=== PATIENT | female | born 1970 | race Caucasian/White ===

== ENCOUNTER 2020-09-13 07:26 | Outpatient (REF) | payer OTHER, SELFPAY ==
[2020-09-13 07:37] LABS: COVID-19 Test Positive (Negative)
== END 2020-09-13 07:27 | disposition home or self-care (01) ==
LOC: HO.EMPCOV 07:26
PROVIDERS: Visit Provider Internal Medicine
DX: Z20.822 Contact with and (suspected) exposure to COVID-19 (principal)
CPT/HCPCS: 36415; 87635; C9803

== ENCOUNTER 2020-11-30 07:28 | Outpatient (REF) | payer OTHER, SELFPAY ==
[2020-11-30 11:12] LABS: MANUAL DIFF FLAG NO
[2020-11-30 11:39] LABS: Basophils Absolute Auto 0.1 X10*3/uL (0.0-0.2); Eosinophils Absolute Auto 0.2 X10*3/uL (0.0-0.4); Eosinophils Percent Auto 4.3 % (0-4); Hematocrit 36.8 % (37-47); Imm Gran Abs Auto 0.03 X10*3/uL (0.00-0.03); Imm Gran Pct Auto 0.6 % (0.0-0.4); Lymphocytes Absolute Auto 1.1 X10*3/uL (1.2-4.9); Lymphocytes Percent Auto 21.9 % (20-40); Mean Corpuscular HGB Conc 32.6 g/dl (31.0-35.0); Mean Corpuscular Hemoglobin 31.9 pg (27.0-33.0); Mean Corpuscular Volume 97.9 fL (80-98); Mean Platelet Volume 10.2 fL (9.4-12.3); Monocytes Absolute Auto 0.4 X10*3/uL (0.1-1.2); Monocytes Percent Auto 7.5 % (2-11); Neutrophils Absolute Auto 3.1 X10*3/uL (2.0-8.3); Neutrophils Percent Auto 64.7 % (45-73); Platelet Count 175 X10*3/uL (160-400); Red Blood Count 3.76 X10*6/uL (4.20-5.50); Red Cell Distribution Width 13.3 % (11.0-16.0); White Blood Count 4.8 X10*3/uL (4.8-10.8)
[2020-11-30 11:53] LABS: Estimated Average Glucose 303 mg/dL; Hemoglobin A1c % 12.2 %
[2020-11-30 11:55] LABS: Calcium 8.6 mg/dL (8.4-10.2); Magnesium 1.9 mg/dL (1.6-2.6); Phosphorus 3.9 mg/dL (2.7-4.5); Uric Acid 9.6 mg/dL (2.4-5.7)
[2020-11-30 11:56] LABS: Creatinine Urine 89.71 mg/dL; Microalbum/Creatinine Ratio Ur 50.1 ug/mg cr
[2020-11-30 12:06] LABS: Anion Gap 15 (12-20); Blood Urea Nitrogen 16 mg/dL (9-16); Calcium 8.5 mg/dL (8.4-10.2); Carbon Dioxide 24 mmol/L (22-29); Chloride 101 mmol/L (96-108); Estimated Glomerular Filt Rate 59; Glucose Random 191 mg/dL (60-115); Potassium 5.3 mmol/L (3.3-5.1); Sodium 135 mmol/L (135-145)
[2020-12-01 07:02] LABS: LDL Cholesterol Direct 191 mg/dL (<100)
== END 2020-11-30 07:29 | disposition home or self-care (01) ==
LOC: HO.HMGCLDS 07:28
PROVIDERS: PCP Internal Medicine; Visit Provider Internal Medicine Hypertension Specialist
DX: R21 Rash and other nonspecific skin eruption (principal); K21.9 Gastro-esophageal reflux disease without esophagitis; Z79.4 Long term (current) use of insulin; E13.9 Other specified diabetes mellitus without complications; F41.1 Generalized anxiety disorder; I10 Essential (primary) hypertension
CPT/HCPCS: 36415; 80048; 82040; 82043; 82310; 83036; 83721; 83735; 84100; 84550; 85025

== ENCOUNTER 2020-12-04 07:16 | Outpatient (REF) | payer OTHER, SELFPAY ==
[2020-12-04 12:09] LABS: Anion Gap 17 (12-20); Carbon Dioxide 24 mmol/L (22-29); Chloride 100 mmol/L (96-108); Potassium 5.2 mmol/L (3.3-5.1); Sodium 136 mmol/L (135-145)
== END 2020-12-04 07:17 | disposition home or self-care (01) ==
LOC: HO.HMGCLDS 07:16
PROVIDERS: Visit Provider Internal Medicine
DX: E87.5 Hyperkalemia (principal)
CPT/HCPCS: 36415; 80051

== ENCOUNTER 2020-12-13 12:18 | Outpatient (REF) | payer OTHER, SELFPAY ==
--- NOTE | ~2020-12-13 | XR_ITS ---
EXAMINATION: XR CHEST CLINICAL INFORMATION: Cough. COMPARISON: Chest x-ray 08/03/2017 TECHNIQUE: 2 views of the chest were obtained. 1600 hours FINDINGS: Lungs are clear. No pulmonary vascular congestion. There is no pleural effusion. The heart size is normal. The cardiac and mediastinal contours are normal. There are multilevel degenerative changes of dorsal spine. XR/XR chest 2V IMPRESSION: Unremarkable examination.
== END 2020-12-13 12:19 | disposition home or self-care (01) ==
LOC: HO.HMGCX 12:18
PROVIDERS: PCP Internal Medicine; Visit Provider Internal Medicine
DX: R05 Cough (principal)
CPT/HCPCS: 71046

== ENCOUNTER 2021-05-25 07:50 | Outpatient (REF) | payer OTHER, SELFPAY ==
[2021-05-25 11:29] LABS: MANUAL DIFF FLAG NO
[2021-05-25 11:37] LABS: Basophils Absolute Auto 0.1 X10*3/uL (0.0-0.2); Basophils Percent Auto 0.9 % (0-2); Eosinophils Absolute Auto 0.3 X10*3/uL (0.0-0.4); Eosinophils Percent Auto 4.7 % (0-4); Hematocrit 38.1 % (37-47); Hemoglobin 12.4 g/dl (12.0-16.0); Imm Gran Abs Auto 0.04 X10*3/uL (0.00-0.03); Imm Gran Pct Auto 0.6 % (0.0-0.4); Lymphocytes Absolute Auto 1.4 X10*3/uL (1.2-4.9); Lymphocytes Percent Auto 20.9 % (20-40); Mean Corpuscular HGB Conc 32.5 g/dl (31.0-35.0); Mean Corpuscular Hemoglobin 31.1 pg (27.0-33.0); Mean Corpuscular Volume 95.5 fL (80-98); Mean Platelet Volume 10.4 fL (9.4-12.3); Monocytes Absolute Auto 0.6 X10*3/uL (0.1-1.2); Monocytes Percent Auto 8.1 % (2-11); Neutrophils Absolute Auto 4.4 X10*3/uL (2.0-8.3); Neutrophils Percent Auto 64.8 % (45-73); Platelet Count 208 X10*3/uL (160-400); Red Blood Count 3.99 X10*6/uL (4.20-5.50); Red Cell Distribution Width 11.9 % (11.0-16.0); White Blood Count 6.8 X10*3/uL (4.8-10.8)
[2021-05-25 11:44] LABS: Estimated Average Glucose 303 mg/dL; Hemoglobin A1c % 12.2 %
[2021-05-25 12:08] LABS: Alanine Aminotransferase 32 U/L (0-31); Albumin Level 4.1 g/dL (3.5-5.0); Alkaline Phosphatase 173 U/L (39-117); Anion Gap 17 (12-20); Aspartate Amino Transferase 60 U/L (5-31); Bilirubin Total 0.4 mg/dL (0.0-1.0); Blood Urea Nitrogen 23 mg/dL (9-16); Calcium 8.9 mg/dL (8.4-10.2); Carbon Dioxide 24 mmol/L (22-29); Chloride 97 mmol/L (96-108); Cholesterol 176 mg/dL; Estimated Glomerular Filt Rate 33; Glucose Fasting 297 mg/dL (60-99); HDL Cholesterol 47 mg/dL; LDL Cholesterol Calculated 77 mg/dl; Potassium 5.3 mmol/L (3.3-5.1); Sodium 133 mmol/L (135-145); Total Protein 7.2 g/dL (6.5-8.0); Triglycerides 264 mg/dL
[2021-05-27 03:02] LABS: LDL Cholesterol Direct 110 mg/dL (<100)
== END 2021-05-25 07:51 | disposition home or self-care (01) ==
LOC: HO.HMGCLDS 07:50
PROVIDERS: PCP Internal Medicine; Visit Provider Internal Medicine
DX: E11.21 Type 2 diabetes mellitus with diabetic nephropathy (principal); E78.9 Disorder of lipoprotein metabolism, unspecified; E79.0 Hyperuricemia without signs of inflammatory arthritis and tophaceous disease; E87.5 Hyperkalemia; F41.1 Generalized anxiety disorder; G44.89 Other headache syndrome; I10 Essential (primary) hypertension; K21.9 Gastro-esophageal reflux disease without esophagitis; F33.9 Major depressive disorder, recurrent, unspecified; Z79.4 Long term (current) use of insulin
CPT/HCPCS: 36415; 80053; 80061; 83036; 83721; 85025

== ENCOUNTER 2021-06-09 10:09 | Outpatient (REF) | payer OTHER, SELFPAY ==
[2021-06-09 11:13] LABS: Appearance Urine CLEAR; Color Urine YELLOW; Glucose Urine UA NEG (NEG); Leukocyte Esterase Urine NEG (NEG); Nitrite Urine NEG (NEG); Specific Gravity - Urine 1.025 (1.005-1.025); Urine Blood TRACE (NEG); Urine Ketones NEG (NEG); Urine Protein 1+ MG/DL (NEG-TRACE)
[2021-06-09 11:24] LABS: Estimated Average Glucose 298 mg/dL
[2021-06-09 11:30] LABS: Bacteria Urine 1+ /LPF; Mucus Urine 1+ /LPF; RBC Urine 0-2 /HPF (0); Squamous Epithelial Cell Urine 2+ /LPF; WBC Urine 0-2 /HPF (0-4)
[2021-06-09 11:31] LABS: Creatinine Urine 136.95 mg/dL; Protein/Creatinine Ratio, Ur 0.34 (<0.2); Total Protein Urine Random 46 mg/dL (<12)
[2021-06-09 11:35] LABS: Alanine Aminotransferase 33 U/L (0-31); Albumin Level 4.1 g/dL (3.5-5.0); Alkaline Phosphatase 163 U/L (39-117); Alkaline Phosphatase 167 U/L (39-117); Anion Gap 17 (12-20); Anion Gap 20 (12-20); Aspartate Amino Transferase 74 U/L (5-31); Aspartate Amino Transferase 79 U/L (5-31); Bilirubin Total 0.5 mg/dL (0.0-1.0); Blood Urea Nitrogen 16 mg/dL (9-16); Calcium 8.9 mg/dL (8.4-10.2); Carbon Dioxide 20 mmol/L (22-29); Carbon Dioxide 23 mmol/L (22-29); Chloride 100 mmol/L (96-108); Cholesterol 196 mg/dL; Estimated Glomerular Filt Rate 54; Estimated Glomerular Filt Rate 57; Glucose Fasting 213 mg/dL (60-99); Glucose Random 210 mg/dL (60-115); HDL Cholesterol 49 mg/dL; LDL Cholesterol Calculated 101 mg/dl; Potassium 5.1 mmol/L (3.3-5.1); Potassium 5.6 mmol/L (3.3-5.1); Sodium 134 mmol/L (135-145); Sodium 135 mmol/L (135-145); Total Protein 7.1 g/dL (6.5-8.0); Total Protein 7.4 g/dL (6.5-8.0); Triglycerides 232 mg/dL
== END 2021-06-09 10:10 | disposition home or self-care (01) ==
LOC: HO.HMGCLDS 10:09
PROVIDERS: PCP Internal Medicine; Visit Provider Internal Medicine Hypertension Specialist
DX: N17.9 Acute kidney failure, unspecified (principal); I10 Essential (primary) hypertension; E11.21 Type 2 diabetes mellitus with diabetic nephropathy; F33.9 Major depressive disorder, recurrent, unspecified; E78.9 Disorder of lipoprotein metabolism, unspecified; F41.1 Generalized anxiety disorder; E87.5 Hyperkalemia; K21.9 Gastro-esophageal reflux disease without esophagitis; E79.0 Hyperuricemia without signs of inflammatory arthritis and tophaceous disease; G44.89 Other headache syndrome; Z79.4 Long term (current) use of insulin
CPT/HCPCS: 36415; 80053; 80061; 81001; 83036; 84156

== ENCOUNTER 2021-06-14 15:09 | Outpatient (REF) | payer OTHER, SELFPAY ==
--- NOTE | ~2021-06-14 | US_ITS ---
EXAMINATION: US RETROPERITONEAL LIMITED (RENAL ONLY) CLINICAL INFORMATION: Acute kidney failure. COMPARISON: Ultrasound abdomen complete 09/01/2017. CT abdomen and pelvis 08/03/2017. TECHNIQUE: Real-time imaging of the kidneys. FINDINGS: RIGHT KIDNEY: Partially obscured due to overlying bowel gas and patient body habitus. 10.8 x 5.5 x 5.8 cm (SAG x AP x TRV). The kidney is normal in size and contour. Mildly increased cortical echogenicity. Mild renal cortical thinning. No calculi or focal parenchymal lesions. No hydronephrosis. LEFT KIDNEY: 11.5 x 6.3 x 5.2 cm (SAG x AP x TRV). The kidney is normal in size and contour. Mildly increased cortical echogenicity. Mild renal cortical thinning. No calculi or focal parenchymal lesions. No hydronephrosis. US/US renal BI IMPRESSION: Bilateral renal cortical thinning with increased peripheral echogenicity, which can be seen in the setting of medical renal disease. Findings appear similar when compared to the ultrasound dated 09/01/2017. No focal parenchymal lesion, hydronephrosis, or nephrolithiasis.
== END 2021-06-14 15:10 | disposition home or self-care (01) ==
LOC: HO.HMGCX 15:09
PROVIDERS: PCP Internal Medicine; Visit Provider Internal Medicine Hypertension Specialist
DX: N17.9 Acute kidney failure, unspecified (principal)
CPT/HCPCS: 76775

== ENCOUNTER 2021-07-15 23:03 | Emergency (ER) | payer OTHER, SELFPAY ==
[2021-07-15 23:08] VITALS: BP 192/94; PULSE 64; RESP 24; TEMP 37.1; O2SAT 95; BMI 51.2
--- NOTE | 2021-07-15 23:41 | ED_ITS ---
HPI - Extremity Problem General Chief complaint: Extremity Problem Stated complaint: ? DVT in leg Time Seen by Provider: 07/15/21 23:15 Source: patient Mode of arrival: ambulatory Limitations: no limitations History of Present Illness HPI Narrative: 51-year-old female with a history of morbid obesity, diabetes on insulin with neuropathy, depression, anxiety, hypertension, constipation, asthma, GERD who presents to the ER with acute onset of right leg pain that started this evening. She reports no injury or trauma. She reports the pain is ?shooting and goes from the outside of her right foot and ankle up her leg to her right buttock and thigh. She cannot get comfortable. She states she was sitting watching TV when the pain started and it is continuous shooting pain that will go away. She took some Tylenol with no relief. She has no numbness, tingling, weakness. She has no history of low back pain or sciatica in the past. MD Complaint: extremity pain Onset (ago): hour(s) Pain Consistency: constant Location: right and lower extremity Severity scale (1-10): 8 Quality: sharp and other (Shooting) Radiation: proximal Relieving factors: nothing Exacerbating factors: nothing Associated symptoms: denies other symptoms Related Data Home Medications Medication Instructions Recorded Confirmed lancets 28 gauge (FreeStyle #100 ea 06/26/20 05/25/21 Lancets) Previous Rx's Medication Instructions Recorded nystatin 100,000 unit/gram topical 1 appl TOPICAL DAILY PRN 30 Days 09/08/20 powder #60 g valacyclovir 1 gram tablet 2,000 mg PO Q12H 1 Days #4 tab 09/25/20 (Valtrex) nitrofurantoin 100 mg PO Q12H 3 Days #6 cap 10/31/20 monohydrate/macrocrystals 100 mg capsule (Macrobid) pen needle, diabetic 32 gauge x #100 ea 10/31/20 (Easy Comfort Pen [place]) blood sugar diagnostic (FreeStyle See Rx Instructions .ROUTE 11/27/20 Lite Strips) .COMPLEX 30 Days #100 strip sodium polystyrene sulfonate 15 15 g (60 mL) PO DAILY 3 Days #180 12/05/20 gram/60 mL oral suspension ml insulin lispro 200 unit/mL (3 mL) 10 unit (0.05 mL) SUBCUT TID 30 01/26/21 subcutaneous pen (Humalog KwikPen Days #4.5 ml U-200 Insulin) citalopram 40 mg tablet 40 mg PO DAILY 90 Days #90 tab 03/21/21 propranolol 80 mg capsule,24 80 mg PO DAILY 90 Days #90 cap 04/18/21 hr,extended release (Inderal LA) albuterol sulfate 90 mcg/actuation 1 inh INHALATION QID PRN 30 Days 04/27/21 aerosol inhaler (ProAir HFA) #18 g uzcjcvbo-kuwrqbzrk-exccvhgzu 3.5 4 drp OTIC (EAR) LEFT Q8H 10 Days 05/15/21 mg-10,000 unit/mL-1 % ear #10 ml drops,susp simvastatin 40 mg tablet 40 mg PO BEDTIME 90 Days #90 tab 05/24/21 lorazepam 1 mg tablet 1 mg PO ONCE PRN 30 Days #30 tab 05/25/21 insulin glargine 100 unit/mL (3 100 unit SUBCUT DAILY 90 Days #90 06/05/21 mL) subcutaneous pen (Basaglar ml KwikPen U-100 Insulin) colchicine 0.6 mg tablet 0.6 mg PO .q 6 hrs #30 tab 06/17/21 omeprazole 20 mg capsule,delayed 20 mg PO DAILY 90 Days #90 cap 06/18/21 release fluticasone propionate 50 1 spray INTRANASAL BID 30 Days #16 06/20/21 mcg/actuation nasal g spray,suspension (Flonase Allergy Relief) lisinopril 40 mg tablet 40 mg PO DAILY #90 tab 06/29/21 cyclobenzaprine 10 mg tablet 10 mg PO TID PRN #10 tab 07/16/21 ibuprofen 600 mg tablet 600 mg PO Q8H PRN #14 tab 07/16/21 oxycodone 5 mg tablet 5 mg PO Q8H PRN #7 tab 07/16/21 Allergies Allergy/AdvReac Type Severity Reaction Status Date / Time raspberry [Raspberry] Allergy Mild HIVES Verified 07/15/21 23:29 Review of Systems Review of Systems: Constitutional: No Fever, No Chills s Cardiovascular: No Chest Pain, No SOB Gastrointestinal: No Nausea, No Vomiting, No Diarrhea, No abdominal Pain Genitourinary: No Dysuria, No Urinary Frequency, No Hematuria Musculoskeletal: + joint pain, + Myalgias Skin: No Skin Lesions, No rash Neuro: No Weakness, No Numbness Psych: No Anxiety/Panic, No Depression Heme/Lymph: No Bruising, No Lymphadenopathy PMFSH Past Medical History Medical History (Updated 07/16/21 @ 00:37 by ANGELA Palomo) HTN (hypertension) Insulin dependent diabetes mellitus Rash Surgical History History of back surgery Previous section Family History Family History Father No problems noted. Mother HTN (hypertension) Maternal Grandfather Cancer Sister No problems noted. Social History Social History Advance Directives: No Patient : No Physical Exam Vital Signs: Vital Signs: Last Vital Signs Temp 98.7 F 07/15/21 23:08 Pulse 64 07/16/21 00:21 Resp 17 07/16/21 00:21 BP 187/67 H 07/16/21 00:21 Pulse Ox 95 07/15/21 23:08 Body Mass Index 51.2 Appearance: Alert. Oriented X3. Appears slightly uncomfortable. HEENT: normal inspection CVS: Normal heart rate and rhythm. Pulses normal. Respiratory: No respiratory distress. Skin: Skin warm and dry. Normal skin color. Normal skin turgor. No rashes. Extremities: Normal inspection of bilateral lower extremities. Normal range of motion of bilateral lower extremities. Right lower extremity is nontender to palpation. No calf tenderness. No mass in the popliteal fossa. Warm and well perfused. Neuro: Oriented X 3. No motor deficit. No sensory deficit. Course Course Course Narrative: 51-year-old female presenting with acute onset of non- traumatic shooting right leg pain that goes from ankle to buttock. No SOB or chest pain. Doubt DVT at this time. Most likely sounds like nerve pain, possible sciatica. Will medicate and reassess. Reevaluation(s) Reevaluation #1: Pain and blood pressure improved with medication. Her clinical presentation is most consistent with nerve pain that is shooting. Will treat with short course of p.r.n. narcotic and muscle relaxers. Will also prescribe short course of anti-inflammatory medication. She will follow-up with her doctor this week. Will provide work note for tomorrow. Comfortable with d/c home. Discharge Plan Discharge Clinical Impression: Acute leg pain Qualifiers: Laterality: right Qualified Code(s): M79.604 - Pain in right leg Patient Disposition: Home, Self-Care Instructions: Leg Pain (ED) Additional Instructions: Your pain is most likely nerve pain. Very low suspicion for DVT at this time. Take medications as prescribed to help with pain and discomfort. Follow up with your Primary Care Doctor this week. If your pain worsens, if you develop new numbness, tingling, weakness, loss of function or any other concerning symptom 911 or come back to the ER right away for evaluation. Prescriptions: New cyclobenzaprine 10 mg tablet 10 mg PO TID PRN (Reason: muscle spasm) Qty: 10 RF: 0 ibuprofen 600 mg tablet 600 mg PO Q8H PRN (Reason: pain) Qty: 14 RF: 0 oxycodone 5 mg tablet 5 mg PO Q8H PRN (Reason: pain) Qty: 7 RF: 0 No Action (DME) lancets [FreeStyle Lancets] 28 gauge misc See Rx Instructions .ROUTE .MEDSUPPLY Qty: 100 RF: 0 valacyclovir [Valtrex] 1 gram tablet 2,000 mg PO Q12H 1 Days Qty: 4 RF: 2 (DME) pen needle, diabetic [Easy Comfort Pen [place]] 32 gauge x 5/32 needle See Rx Instructions .ROUTE .MEDSUPPLY Qty: 100 RF: 3 nitrofurantoin monohyd/m-cryst [Macrobid] 100 mg capsule 100 mg PO Q12H 3 Days Qty: 6 RF: 0 FreeStyle Lite Strips Strip See Rx Instructions .ROUTE .COMPLEX 30 Days Qty: 100 RF: 1 sodium polystyrene sulfonate 15 gram/60 mL suspension 15 g PO DAILY 3 Days Qty: 180 RF: 0 Humalog KwikPen Insulin 200 unit/mL (3 mL) insulin pen 10 unit subcut TID 30 Days Qty: 4.5 RF: 3 citalopram 40 mg tablet 40 mg PO DAILY 90 Days Qty: 90 RF: 0 propranolol [Inderal LA] 80 mg capsule,extended release 24 hr 80 mg PO DAILY 90 Days Qty: 90 RF: 0 albuterol sulfate [ProAir HFA] 90 mcg/actuation HFA aerosol inhaler 1 inh inhalation QID PRN (Reason: shortness of breath or wheezing) 30 Days Qty: 18 RF: 5 simvastatin 40 mg tablet 40 mg PO BEDTIME 90 Days Qty: 90 RF: 0 Basaglar KwikPen U-100 Insulin 100 unit/mL (3 mL) insulin pen 100 unit subcut DAILY 90 Days Qty: 90 RF: 1 colchicine 0.6 mg tablet 0.6 mg PO .q 6 hrs Qty: 30 RF: 0 omeprazole 20 mg capsule,delayed release(DR/EC) 20 mg PO DAILY 90 Days Qty: 90 RF: 0 fluticasone propionate [Flonase Allergy Relief] 50 mcg/actuation spray,suspension 1 spray intranasal BID 30 Days Qty: 16 RF: 5 lisinopril 40 mg tablet 40 mg PO DAILY Qty: 90 RF: 0 lorazepam 1 mg tablet 1 mg PO ONCE PRN (Reason: anxiety) 30 Days Qty: 30 RF: 2 nystatin 100,000 unit/gram powder 1 appl topical DAILY PRN (Reason: rash) 30 Days Qty: 60 RF: 5 fnlhdowe-vfjntxxgd-RL 3.5-10,000-1 mg/mL-unit/mL-% drops,suspension 4 drp otic (ear) left Q8H 10 Days Qty: 10 RF: 0 Referrals: Cara Byers MD [Primary Care Provider] - 2 days Stand Alone Forms: Work/School Release
[2021-07-15] MEDS: Ibuprofen 600 MG TABLET PO (23:48)
[2021-07-15] MEDS: oxyCODONE HCl Immed Release 5 MG TABLET PO (23:49)
[2021-07-16 00:21] VITALS: BP 187/67; PULSE 64; RESP 17
[2021-07-16] MEDS: Cyclobenzaprine HCl 10 MG TABLET PO (00:28)
== END 2021-07-16 00:53 | disposition home or self-care (01) ==
PROVIDERS: Emergency Provider Emergency Medicine; PCP Internal Medicine
DX: M79.604 Pain in right leg (principal); E11.40 Type 2 diabetes mellitus with diabetic neuropathy, unspecified; I10 Essential (primary) hypertension; J45.909 Unspecified asthma, uncomplicated; E66.01 Morbid (severe) obesity due to excess calories; Z68.43 Body mass index [BMI] 50.0-59.9, adult; Z79.4 Long term (current) use of insulin
CPT/HCPCS: 99283; 99284

== ENCOUNTER 2021-07-18 09:12 | Emergency (ER) | payer OTHER, SELFPAY ==
--- NOTE | ~2021-07-18 | US_ITS ---
EXAMINATION: US VENOUS ULTRASOUND WITH DOPPLER LOWER EXTREMITY, RIGHT CLINICAL INFORMATION: Right lower extremity pain. Assess for occult DVT. COMPARISON: None TECHNIQUE: Ultrasound of the deep veins is performed from the hip to the calf with compression sonography and color and pulse Doppler assessment. Spectral analysis with color-flow imaging is performed. FINDINGS: There is normal venous compression and respiratory variation and augmented flow. The visualized common femoral vein, superficial femoral vein, profunda femoral vein, popliteal vein, and the trifurcation region shows no evidence of deep venous thrombosis. No popliteal fossa cyst demonstrated. US/US venous duplex LE RT IMPRESSION: No DVT demonstrated in the right lower extremity.
[2021-07-18 09:14] VITALS: BP 206/74; PULSE 69; RESP 20; TEMP 37.2; O2SAT 95; BMI 52.1
--- NOTE | 2021-07-18 09:26 | ED.EXTPRO ---
HPI - Extremity Problem General Chief complaint: Extremity Problem Stated complaint: rt leg pain & swelling ?dvt Time Seen by Provider: 07/18/21 09:26 Source: patient Mode of arrival: ambulatory Limitations: no limitations History of Present Illness HPI Narrative: Patient having pain from right lumbar area down to her calf. Patient is concerned that she is having a dvt. Patient denies swelling MD Complaint: extremity pain Onset (ago): minute(s) Pain Consistency: constant Location: right Associated symptoms: denies other symptoms Related Data Home Medications Medication Instructions Recorded Confirmed lancets 28 gauge (FreeStyle #100 ea 06/26/20 05/25/21 Lancets) insulin glargine 100 unit/mL (3 25 unit SUBCUT DAILY 07/18/21 mL) subcutaneous pen (Basaglar KwikPen U-100 Insulin) insulin glargine 100 unit/mL (3 75 unit SUBCUT BEDTIME 07/18/21 mL) subcutaneous pen (Basaglar KwikPen U-100 Insulin) insulin lispro 200 unit/mL (3 mL) unit SUBCUT 07/18/21 subcutaneous pen (Humalog KwikPen U-200 Insulin) Previous Rx's Medication Instructions Recorded nystatin 100,000 unit/gram topical 1 appl TOPICAL DAILY PRN 30 Days 09/08/20 powder #60 g valacyclovir 1 gram tablet 2,000 mg PO Q12H 1 Days #4 tab 09/25/20 (Valtrex) nitrofurantoin 100 mg PO Q12H 3 Days #6 cap 10/31/20 monohydrate/macrocrystals 100 mg capsule (Macrobid) pen needle, diabetic 32 gauge x #100 ea 10/31/20/32 (Easy Comfort Pen [place]) sodium polystyrene sulfonate 15 15 g (60 mL) PO DAILY 3 Days #180 12/05/20 gram/60 mL oral suspension ml citalopram 40 mg tablet 40 mg PO DAILY 90 Days #90 tab 03/21/21 propranolol 80 mg capsule,24 80 mg PO DAILY 90 Days #90 cap 04/18/21 hr,extended release (Inderal LA) albuterol sulfate 90 mcg/actuation 1 inh INHALATION QID PRN 30 Days 04/27/21 aerosol inhaler (ProAir HFA) #18 g fduajhyu-tgtgwgntc-qmjtnioiw 3.5 4 drp OTIC (EAR) LEFT Q8H 10 Days 05/15/21 mg-10,000 unit/mL-1 % ear #10 ml drops,susp simvastatin 40 mg tablet 40 mg PO BEDTIME 90 Days #90 tab 05/24/21 lorazepam 1 mg tablet 1 mg PO ONCE PRN 30 Days #30 tab 05/25/21 colchicine 0.6 mg tablet 0.6 mg PO .q 6 hrs #30 tab 06/17/21 omeprazole 20 mg capsule,delayed 20 mg PO DAILY 90 Days #90 cap 06/18/21 release fluticasone propionate 50 1 spray INTRANASAL BID 30 Days #16 06/20/21 mcg/actuation nasal g spray,suspension (Flonase Allergy Relief) lisinopril 40 mg tablet 40 mg PO DAILY #90 tab 06/29/21 cyclobenzaprine 10 mg tablet 10 mg PO TID PRN #10 tab 07/16/21 ibuprofen 600 mg tablet 600 mg PO Q8H PRN #14 tab 07/16/21 oxycodone 5 mg tablet 5 mg PO Q8H PRN #7 tab 07/16/21 cyclobenzaprine 10 mg tablet 10 mg PO TID #10 tab 07/18/21 naproxen 500 mg tablet (Naprosyn) 500 mg PO BID #20 tab 07/18/21 Allergies Allergy/AdvReac Type Severity Reaction Status Date / Time raspberry [Raspberry] Allergy Mild HIVES Verified 07/18/21 08:30 Review of Systems Constitutional: Constitutional: Reports no additional constitutional complaints Eyes: Eyes: Reports no additional eye complaints ENT: Denies dizziness Cardiovascular: Cardiovascular: Reports no additional cardiovascular complaints Respiratory: Respiratory: Reports as per HPI Gastrointestinal: Gastrointestinal: Reports no additional gastrointestinal complaints Genitourinary: Genitourinary: Reports no additional female genitourinary complaints Musculoskeletal: Musculoskeletal: Reports no additional musculoskeletal complaints Integumentary/Breasts: Skin/Breast: Denies rash Neurologic: Reports system reviewed and no additional complaints, except as documented, Denies dizziness and Denies Sensory deficit (Neuro) Psychiatric: Psychiatric: Denies anxiety PMFSH Past Medical History Medical History HTN (hypertension) Insulin dependent diabetes mellitus Rash Surgical History History of back surgery Previous section Family History Family History Father No problems noted. Mother HTN (hypertension) Maternal Grandfather Cancer Sister No problems noted. Social History Social History Alcohol intake: unknown Patient Tobacco Use Status: Never used Tobacco Use of substances other than those prescribed or required for medical reasons: No Advance Directives: No Advance Directives Information Provided: Yes Physical Exam Vital Signs: Vital Signs: Last Vital Signs Temp 98.9 F 07/18/21 09:14 Pulse 65 07/18/21 10:36 Resp 18 07/18/21 10:36 BP 178/66 H 07/18/21 10:36 Pulse Ox 94 07/18/21 10:36 Body Mass Index 52.1 Const: Other: morbidly obese female appearing very uncomfortable Orientation/consciousness: oriented to person and patient oriented x3 Limitations: no limitations HENMT: Head: Yes normal to inspection Ears: external ears normal General nose exam: Normal external nose present Mouth: Normal oral and palatal mucosa present and oropharynx normal Throat: Yes posterior oropharynx normal Eyes: General: appearance normal, both eyes and all related structures Neck: Other: supple Neck: Yes normal visual inspection Chest: Chest palpation & inspection: normal inspection of the chest Resp: Auscultation: clear to auscultation bilaterally Cardio: Jugular venous distension: no JVD Rate: regular rate Rhythm: regular rhythm Heart sounds: S1 normal heart sound present and S2 normal heart sound present GI: Inspection: Yes normal to inspection Palpation (GI): Soft to palpation, nontender and No hepatosplenomegaly present Auscultation: normal bowel sounds Back/Spine/Pelvis: Other: right sciatic tenderness Skin: General skin exam: no rashes or lesions noted Neuro: General: oriented to person and patient oriented x3 Cranial nerves: Yes CN's II-XII intact bilaterally Motor exam (neuro): 5/5 motor strength present throughout Sensory Exam: No Sensory deficit (Neuro) Extrem: Other: question of fullness behind knee consistent with Barrera's cyst. Will get ultrasound of leg Psych: Appearance: grossly normal Course Reevaluation(s) Reevaluation #1: Patient with sciatic pain, no dvt no bakers cyst will dc on flexeril and NSAIDS Time: 10:40 MDM - Extremity (Nontraumatic) Imaging Data duplex left leg: Radiologist's impression: FINDINGS: There is normal venous compression and respiratory variation and augmented flow. The visualized common femoral vein, superficial femoral vein, profunda femoral vein, popliteal vein, and the trifurcation region shows no evidence of deep venous thrombosis. ? No popliteal fossa cyst demonstrated. US/US venous duplex LE RT IMPRESSION: No DVT demonstrated in the right lower extremity. Discharge Plan Discharge Clinical Impression: Sciatica of right side Patient Disposition: Home, Self-Care Instructions: Sciatica (ED), Acute Low Back Pain (ED) Prescriptions: New cyclobenzaprine 10 mg tablet 10 mg PO TID Qty: 10 RF: 0 naproxen [Naprosyn] 500 mg tablet 500 mg PO BID Qty: 20 RF: 0 No Action (DME) lancets [FreeStyle Lancets] 28 gauge misc See Rx Instructions .ROUTE .MEDSUPPLY Qty: 100 RF: 0 valacyclovir [Valtrex] 1 gram tablet 2,000 mg PO Q12H 1 Days Qty: 4 RF: 2 (DME) pen needle, diabetic [Easy Comfort Pen [place]] 32 gauge x 5/32 needle See Rx Instructions .ROUTE .MEDSUPPLY Qty: 100 RF: 3 nitrofurantoin monohyd/m-cryst [Macrobid] 100 mg capsule 100 mg PO Q12H 3 Days Qty: 6 RF: 0 sodium polystyrene sulfonate 15 gram/60 mL suspension 15 g PO DAILY 3 Days Qty: 180 RF: 0 citalopram 40 mg tablet 40 mg PO DAILY 90 Days Qty: 90 RF: 0 propranolol [Inderal LA] 80 mg capsule,extended release 24 hr 80 mg PO DAILY 90 Days Qty: 90 RF: 0 albuterol sulfate [ProAir HFA] 90 mcg/actuation HFA aerosol inhaler 1 inh inhalation QID PRN (Reason: shortness of breath or wheezing) 30 Days Qty: 18 RF: 5 simvastatin 40 mg tablet 40 mg PO BEDTIME 90 Days Qty: 90 RF: 0 colchicine 0.6 mg tablet 0.6 mg PO .q 6 hrs Qty: 30 RF: 0 omeprazole 20 mg capsule,delayed release(DR/EC) 20 mg PO DAILY 90 Days Qty: 90 RF: 0 fluticasone propionate [Flonase Allergy Relief] 50 mcg/actuation spray,suspension 1 spray intranasal BID 30 Days Qty: 16 RF: 5 lisinopril 40 mg tablet 40 mg PO DAILY Qty: 90 RF: 0 Basaglar KwikPen U-100 Insulin 100 unit/mL (3 mL) insulin pen 75 unit subcut BEDTIME RF: 0 Basaglar KwikPen U-100 Insulin 100 unit/mL (3 mL) insulin pen 25 unit subcut DAILY RF: 0 Humalog KwikPen Insulin 200 unit/mL (3 mL) insulin pen subcut RF: 0 cyclobenzaprine 10 mg tablet 10 mg PO TID PRN (Reason: muscle spasm) Qty: 10 RF: 0 ibuprofen 600 mg tablet 600 mg PO Q8H PRN (Reason: pain) Qty: 14 RF: 0 oxycodone 5 mg tablet 5 mg PO Q8H PRN (Reason: pain) Qty: 7 RF: 0 lorazepam 1 mg tablet 1 mg PO ONCE PRN (Reason: anxiety) 30 Days Qty: 30 RF: 2 nystatin 100,000 unit/gram powder 1 appl topical DAILY PRN (Reason: rash) 30 Days Qty: 60 RF: 5 zazbksai-zbqmlozvt-UZ 3.5-10,000-1 mg/mL-unit/mL-% drops,suspension 4 drp otic (ear) left Q8H 10 Days Qty: 10 RF: 0 Referrals: Cara Byers MD [Primary Care Provider] - 1 week
[2021-07-18] MEDS: Ketorolac Tromethamine 60 MG/2 ML VIAL IM (09:36)
[2021-07-18] MEDS: Cyclobenzaprine HCl 10 MG TABLET PO (09:36)
[2021-07-18 10:36] VITALS: BP 178/66; PULSE 65; RESP 18; O2SAT 94
== END 2021-07-18 11:18 | disposition home or self-care (01) ==
PROVIDERS: Emergency Provider Emergency Medicine; PCP Internal Medicine
DX: M54.31 Sciatica, right side (principal); M79.604 Pain in right leg; I10 Essential (primary) hypertension; E11.9 Type 2 diabetes mellitus without complications; Z79.4 Long term (current) use of insulin
CPT/HCPCS: 93971; 96372; 99284; J1885

== ENCOUNTER 2021-07-24 16:38 | Outpatient (REF) | payer OTHER, SELFPAY ==
--- NOTE | ~2021-07-24 | XR_ITS ---
EXAMINATION: XR LUMBOSACRAL SPINE CLINICAL INFORMATION: Radiculopathy COMPARISON: None TECHNIQUE: Three views of the lumbosacral spine. FINDINGS: Bone alignment is normal. No fracture or dislocation is seen. There is multilevel degenerative spondylosis, degenerative disc disease and facet arthritis. Paraspinal soft tissues are unremarkable. XR/XR lumbar spine 2-3V IMPRESSION: Multilevel degenerative changes.
== END 2021-07-24 16:39 | disposition home or self-care (01) ==
LOC: HO.HMGCX 16:38
PROVIDERS: PCP Internal Medicine; Visit Provider Internal Medicine
DX: M54.16 Radiculopathy, lumbar region (principal)
CPT/HCPCS: 72100

== ENCOUNTER 2021-08-03 18:52 | Outpatient (REF) | payer OTHER, SELFPAY | END 2021-08-03 18:53 | disposition home or self-care (01) | LOC: HO.MRI 18:52 | PROVIDERS: PCP Internal Medicine; Visit Provider Internal Medicine | DX: Z13.89 Encounter for screening for other disorder (principal) ==

== ENCOUNTER → 2021-09-21 09:19 | Outpatient (BNVA) | payer OTHER, SELFPAY | PROVIDERS: PCP Internal Medicine; Visit Provider Internal Medicine ==

== ENCOUNTER → 2021-10-12 09:51 | Outpatient (BNVA) | payer OTHER, SELFPAY | PROVIDERS: PCP Internal Medicine; Visit Provider Internal Medicine ==

== ENCOUNTER 2022-03-11 07:40 | Outpatient (REF) | payer OTHER, SELFPAY ==
[2022-03-11 11:32] LABS: Appearance Urine CLEAR; Color Urine YELLOW; Glucose Urine UA NEG (NEG); Leukocyte Esterase Urine NEG (NEG); Nitrite Urine NEG (NEG); Urine Blood NEG (NEG); Urine Ketones NEG (NEG); Urine Protein 1+ MG/DL (NEG-TRACE)
[2022-03-11 11:44] LABS: Squamous Epithelial Cell Urine 1+ /LPF
[2022-03-11 11:45] LABS: Bacteria Urine 1+ /LPF; Hyaline Casts Urine 0-2 /LPF; WBC Urine 0-2 /HPF (0-4)
[2022-03-11 11:46] LABS: RBC Urine 0 /HPF (0)
[2022-03-11 12:09] LABS: Alanine Aminotransferase 27 U/L (0-31); Albumin Level 4.3 g/dL (3.5-5.0); Alkaline Phosphatase 138 U/L (39-117); Anion Gap 17 (12-20); Aspartate Amino Transferase 45 U/L (5-31); Bilirubin Total 0.4 mg/dL (0.0-1.0); Blood Urea Nitrogen 12 mg/dL (9-16); Calcium 9.6 mg/dL (8.4-10.2); Carbon Dioxide 23 mmol/L (22-29); Chloride 96 mmol/L (96-108); Estimated Glomerular Filt Rate 55; Glucose Random 209 mg/dL (60-115); Potassium 5.7 mmol/L (3.3-5.1); Sodium 130 mmol/L (135-145); Total Protein 7.5 g/dL (6.5-8.0)
[2022-03-11 12:23] LABS: Creatinine Urine 80.41 mg/dL; Protein/Creatinine Ratio, Ur 0.44 (<0.2); Total Protein Urine Random 35 mg/dL (<12)
== END 2022-03-11 07:41 | disposition home or self-care (01) ==
LOC: HO.HMGCLDS 07:40
PROVIDERS: PCP Internal Medicine; Visit Provider Internal Medicine Hypertension Specialist
DX: N17.9 Acute kidney failure, unspecified (principal); I10 Essential (primary) hypertension
CPT/HCPCS: 36415; 80053; 81001; 84156

== ENCOUNTER 2022-04-03 07:40 | Outpatient (REF) | payer OTHER, SELFPAY ==
[2022-04-03 13:53] LABS: Uric Acid 9.2 mg/dL (2.4-5.7)
== END 2022-04-03 07:41 | disposition home or self-care (01) ==
LOC: HO.HMGCLDS 07:40
PROVIDERS: PCP Internal Medicine; Visit Provider Internal Medicine
DX: M79.673 Pain in unspecified foot (principal)
CPT/HCPCS: 36415; 84550

== ENCOUNTER 2022-04-28 05:22 | Emergency (ER) | payer OTHER, SELFPAY ==
[2022-04-28 05:36] VITALS: BP 175/115; PULSE 83; RESP 18; TEMP 37.3; O2SAT 97; BMI 50.3
[2022-04-28 06:33] LABS: COVID-19 Test Negative (Negative)
--- NOTE | 2022-04-28 07:10 | ED.ALLEREA ---
HPI - Allergic Reaction General Chief complaint: Allergic Reaction Stated complaint: allergic reaction, headache Time Seen by Provider: 04/28/22 05:23 Source: patient Mode of arrival: ambulatory Limitations: no limitations History of Present Illness HPI narrative: 52-year-old female came in for evaluation of possible allergic reaction. Patient has been feeling sore throat and coughing, patient had negative COVID test because of her symptoms patient took Mucinex then shortly after started to have rash and hives. No shortness of breath, no throat swelling. Feel mild headache but no neck stiffness, no photophobia, no fever. Patient been testing negative for COVID. Patient confirms that Mucinex is the only thing new she talked since the symptoms started. Related Data Home Medications Medication Instructions Recorded Confirmed lancets 28 gauge (FreeStyle #100 ea 06/26/20 03/12/22 Lancets) insulin lispro 200 unit/mL (3 mL) unit subcut 07/18/21 03/12/22 subcutaneous pen (Humalog KwikPen U-200 Insulin) semaglutide 1 mg/dose (4 mg/3 mL) 1 mg subcut QWEEK 03/12/22 03/12/22 subcutaneous pen injector (Ozempic) Previous Rx's Medication Instructions Recorded pen needle, diabetic 32 gauge x #100 ea 10/31/20 (Easy Comfort Pen Alpine) insulin glargine 100 unit/mL (3 75 unit (0.75 mL) subcut BEDTIME 12/27/21 mL) subcutaneous pen (Basaglar 30 days #22.5 mL KwikPen U-100 Insulin) lisinopril 40 mg tablet 40 mg PO DAILY #90 tabs 01/09/22 gabapentin 300 mg capsule 300 mg PO TID #90 caps 01/10/22 fluticasone propionate 50 1 spray intranasal BID 30 days #16 01/11/22 mcg/actuation nasal grams spray,suspension (Flonase Allergy Relief) propranolol 60 mg capsule,24 60 mg PO DAILY 90 days #90 caps 01/21/22 hr,extended release albuterol sulfate 90 mcg/actuation 1 inh inhalation QID PRN shortness 02/20/22 aerosol inhaler (ProAir HFA) of breath or wheezing 30 days #18 grams simvastatin 40 mg tablet 40 mg PO BEDTIME 90 days #90 tabs 02/20/22 omeprazole 20 mg capsule,delayed 20 mg PO DAILY 90 days #90 caps 03/01/22 release citalopram 40 mg tablet 40 mg PO DAILY 90 days #90 tabs 03/22/22 citalopram 40 mg tablet 40 mg PO DAILY 90 days #90 tabs 03/22/22 lorazepam 1 mg tablet 1 mg PO ONCE PRN anxiety 30 days 04/09/22 #30 tabs prednisone 20 mg tablet 20 mg PO BID #8 tabs 04/28/22 Allergies Allergy/AdvReac Type Severity Reaction Status Date / Time raspberry [Raspberry] Allergy Mild HIVES Verified 04/28/22 05:36 Review of Systems Review of Systems: All other systems are reviewed and are negative Constitutional: Reports as per HPI and Reports no additional constitutional complaints Eyes: Reports as per HPI and Reports no additional eye complaints Reports system reviewed and no additional complaints, except as documented Cardiovascular: Reports as per HPI and Reports no additional cardiovascular complaints Respiratory: Reports as per HPI and Reports no additional respiratory complaints Gastrointestinal: Reports as per HPI and Reports no additional gastrointestinal complaints Genitourinary: Reports no additional female genitourinary complaints Musculoskeletal: Reports no additional musculoskeletal complaints Skin/Breast: Reports system reviewed and no additional complaints, except as docu Psychiatric: Reports no additional psychiatric complaints Endocrine: Reports no additional endocrine complaints Hematologic/Lymphatic: Reports no additional hematologic/lymphatic complaints Allergic/Immunologic: Reports no additional allergic/immunologic complaints Reports system reviewed and no additional complaints, except as documented and Reports Abnormal speech present [facility] Past Medical History Medical History HTN (hypertension) Insulin dependent diabetes mellitus Rash Surgical History History of back surgery Previous section Family History Family History Father No problems noted. Mother HTN (hypertension) Maternal Grandfather Cancer Sister No problems noted. Social History Social History Housing: House Alcohol intake: unknown Patient Tobacco Use Status: Never used Tobacco e-Cigarette/Vaping Use: Never Used Use of substances other than those prescribed or required for medical reasons: No Advance Directives: No Advance Directives Information Provided: No service: No Current occupational status: employed Cognitive needs: No Hearing needs: No Vision needs: Yes Physical Exam ED Vital Signs: Vital Signs - 24 hr 04/28/22 05:36 04/28/22 07:33 Temperature 99.1 F Pulse Rate 83 74 Respiratory Rate 18 20 Blood Pressure 175/115 H 179/71 H Pulse Oximetry 97 96 Oxygen Delivery Method Room Air Room Air BMI result Body Mass Index 50.3 Vital signs have been reviewed as appeared to be correct. Blood pressure elevated. Heart rate normal. Respiration rate normal. Temperature normal. Oxygen saturation normal. Appearance: Alert. Oriented X3. No acute distress. Head: Normal external exam. Normocephalic. Atraumatic. No Levi signs noted. No raccoon eyes noted Eyes: PERRLA. EOMI. Conjunctiva and sclera normal. Eyelids normal. ENT: TM's Normal. Pharynx normal. Uvula midline. Moist mucous membranes. No trismus noted. No drooling noted. No muffled voice noted. Neck: Normal inspection. Neck supple. FROM. No adenopathy. Thyroid Normal. No meningeal signs. No neck mass noted. CVS: Normal heart rate and rhythm. Heart sound normal. No murmurs noted. Pulses normal throughout. Respiratory: No respiratory distress. Painless inspiration. Breath sounds normal. No wheezes/rales/rhonchi noted. Chest nontender. No accessory muscle usage noted or decreased air movement noted. Abdomen: Soft and nontender. Bowel sounds normal in all 4 quadrants. No distention noted. No organomegaly noted. No visible injury noted. Back: No CVA tenderness. Full range of motion noted. Skin: Skin warm and dry. Normal skin color. Normal skin turgor. No rashes/lesions/lacerations noted. Extremities: No lower extremity edema. Extremities exhibit normal range of motion. Extremities nontender. Neuro: Oriented X 3. Cranial nerve exam: II-XII are grossly intact No motor deficit. No sensory deficit. Reflexes normal. Course Course Course Narrative: 52-year-old female came in for allergic reaction likely to Mucinex, patient was given Benadryl and prednisone in the ED with partial improvement will start the patient on few days of low-dose prednisone. MDM - Allergic Reaction Lab Data Attestation: I reviewed the patient's lab results. Labs: Lab Results 04/28/22 04/28/22 04/28/22 Range/Units 06:12 07:51 07:52 COVID-19 (JULIET) Negative (Negative) COVID-19 Clin Com See Note Influenza Type A (PCR) NEGATIVE (Negative) Influenza Type B (PCR) NEGATIVE (Negative) RSV RNA Qual (PCR) NEGATIVE (Negative) SARS-CoV-2 RNA (RT-PCR) NEGATIVE (Negative) S. pyogenes GrpA RYAN Negative (Negative) Discharge Plan Discharge Clinical Impression: Allergic reaction, Acute viral syndrome Patient Disposition: Home, Self-Care Instructions: Viral Syndrome (ED), General Allergic Reaction (ED) Prescriptions: New prednisone 20 mg tablet 20 mg PO BID Qty: 8 0RF No Action (DME) lancets [FreeStyle Lancets] 28 gauge misc See Rx Instructions .ROUTE .MEDSUPPLY Qty: 100 Rx Instructions: As directed (DME) pen needle, diabetic [Easy Comfort Pen Alpine] 32 gauge x 5/32 needle See Rx Instructions .ROUTE .MEDSUPPLY Qty: 100 3RF Rx Instructions: B.i.d. Radha Loaiza U-100 Insulin 100 unit/mL (3 mL) insulin pen 75 unit subcut BEDTIME 30 Days Qty: 22.5 0RF lisinopril 40 mg tablet 40 mg PO DAILY Qty: 90 0RF gabapentin 300 mg capsule 300 mg PO TID Qty: 90 3RF fluticasone propionate [Flonase Allergy Relief] 50 mcg/actuation spray,suspension 1 spray intranasal BID 30 Days Qty: 16 5RF Rx Instructions: administer into each nostril propranolol 60 mg capsule,extended release 24 hr 60 mg PO DAILY 90 Days Qty: 90 0RF albuterol sulfate [ProAir HFA] 90 mcg/actuation HFA aerosol inhaler 1 inh inhalation QID PRN (Reason: shortness of breath or wheezing) 30 Days Qty: 18 5RF simvastatin 40 mg tablet 40 mg PO BEDTIME 90 Days Qty: 90 0RF omeprazole 20 mg capsule,delayed release(DR/EC) 20 mg PO DAILY 90 Days Qty: 90 0RF citalopram 40 mg tablet 40 mg PO DAILY 90 Days Qty: 90 0RF citalopram 40 mg tablet 40 mg PO DAILY 90 Days Qty: 90 0RF lorazepam 1 mg tablet 1 mg PO ONCE PRN (Reason: anxiety) 30 Days Qty: 30 0RF Humalog KwikPen Insulin 200 unit/mL (3 mL) insulin pen subcut Ozempic 1 mg/dose (4 mg/3 mL) pen injector 1 mg subcut QWEEK Referrals: Cara Byers MD [Primary Care Provider] -
[2022-04-28 07:33] VITALS: BP 179/71; PULSE 74; RESP 20; O2SAT 96
[2022-04-28] MEDS: diphenhydrAMINE HCL 25 MG TABLET PO (07:37)
[2022-04-28] MEDS: predniSONE 20 MG TABLET 60 MG PO (07:37)
[2022-04-28 08:27] LABS: Strep A Nucleic Acid Negative (Negative)
[2022-04-28 08:43] LABS: Influenza A PCR NEGATIVE (Negative); Influenza B PCR NEGATIVE (Negative); Resp Syncy Virus RNA Qual PCR NEGATIVE (Negative); SARS COV2 PCR INHOUSE NEGATIVE (Negative)
== END 2022-04-28 10:13 | disposition home or self-care (01) ==
PROVIDERS: Emergency Medicine; Emergency Provider Emergency Medicine; PCP Internal Medicine
DX: B34.9 Viral infection, unspecified (principal); L50.0 Allergic urticaria; J02.9 Acute pharyngitis, unspecified; Z20.822 Contact with and (suspected) exposure to COVID-19; Z79.899 Other long term (current) drug therapy
CPT/HCPCS: 0241U; 87635; 87651; 99284; Q0163

== ENCOUNTER 2022-05-16 14:28 | Outpatient (REF) | payer OTHER, SELFPAY ==
--- NOTE | ~2022-05-16 | XR_ITS ---
EXAMINATION: XR CHEST CLINICAL INFORMATION: Cough. COMPARISON: None TECHNIQUE: 2 views of the chest were obtained. FINDINGS: The lungs are well-expanded and clear. The heart size and pulmonary vascularity is normal. There is mild spondylosis throughout dorsal spine. No lytic process. XR/XR chest 2V IMPRESSION: Unremarkable chest examination.
== END 2022-05-16 14:29 | disposition home or self-care (01) ==
LOC: HO.HMGCX 14:28
PROVIDERS: PCP Internal Medicine; Visit Provider Physician Assistant Medical
DX: R05.9 Cough, unspecified (principal)
CPT/HCPCS: 71046

== ENCOUNTER 2022-06-04 07:36 | Outpatient (REF) | payer OTHER, SELFPAY ==
[2022-06-04 11:42] LABS: Estimated Average Glucose 157 mg/dL; Hemoglobin A1c % 7.1 %
[2022-06-04 11:49] LABS: Creatinine Urine 116.93 mg/dL; Microalbum/Creatinine Ratio Ur 145.3 ug/mg cr
[2022-06-04 12:02] LABS: Anion Gap 19 (12-20); Blood Urea Nitrogen 18 mg/dL (9-16); Calcium 9.3 mg/dL (8.4-10.2); Carbon Dioxide 22 mmol/L (22-29); Chloride 100 mmol/L (96-108); Estimated Glomerular Filt Rate 53; Potassium 5.4 mmol/L (3.3-5.1); Sodium 136 mmol/L (135-145); Uric Acid 4.6 mg/dL (2.4-5.7)
[2022-06-04 12:09] LABS: Alanine Aminotransferase 34 U/L (0-31); Albumin Level 4.1 g/dL (3.5-5.0); Alkaline Phosphatase 141 U/L (39-117); Anion Gap 18 (12-20); Aspartate Amino Transferase 50 U/L (5-31); Bilirubin Total 0.6 mg/dL (0.0-1.0); Blood Urea Nitrogen 18 mg/dL (9-16); Calcium 9.1 mg/dL (8.4-10.2); Carbon Dioxide 22 mmol/L (22-29); Chloride 100 mmol/L (96-108); Estimated Glomerular Filt Rate 53; Glucose Random 158 mg/dL (60-115); Potassium 5.2 mmol/L (3.3-5.1); Sodium 135 mmol/L (135-145); Total Protein 7.3 g/dL (6.5-8.0)
[2022-06-06 03:56] LABS: LDL Cholesterol Direct 133 mg/dL (<100)
== END 2022-06-04 07:37 | disposition home or self-care (01) ==
LOC: HO.HMGCLDS 07:36
PROVIDERS: Absent Provider Internal Medicine Hypertension Specialist; PCP Internal Medicine; Visit Provider Internal Medicine
DX: R05.9 Cough, unspecified (principal); E11.21 Type 2 diabetes mellitus with diabetic nephropathy; J45.998 Other asthma; K21.9 Gastro-esophageal reflux disease without esophagitis; G44.89 Other headache syndrome; F33.9 Major depressive disorder, recurrent, unspecified; E78.9 Disorder of lipoprotein metabolism, unspecified; F41.1 Generalized anxiety disorder; I10 Essential (primary) hypertension; Z79.4 Long term (current) use of insulin
CPT/HCPCS: 36415; 80051; 80053; 82043; 82310; 82565; 83036; 83721; 84520; 84550

== ENCOUNTER 2023-03-06 07:57 | Outpatient (REF) | payer OTHER, SELFPAY ==
[2023-03-06 12:03] LABS: Anion Gap 16 (12-20); Blood Urea Nitrogen 12 mg/dL (9-16); Calcium 9.9 mg/dL (8.4-10.2); Carbon Dioxide 25 mmol/L (22-29); Chloride 101 mmol/L (96-108); Estimated Glomerular Filt Rate > 60; Potassium 5.6 mmol/L (3.3-5.1); Sodium 136 mmol/L (135-145); Uric Acid 7.8 mg/dL (2.4-5.7)
== END 2023-03-06 07:58 | disposition home or self-care (01) ==
LOC: HO.HMGCLDS 07:57
PROVIDERS: Absent Provider Internal Medicine Hypertension Specialist; PCP Internal Medicine; Visit Provider Internal Medicine
DX: I10 Essential (primary) hypertension (principal); E78.9 Disorder of lipoprotein metabolism, unspecified
CPT/HCPCS: 36415; 80051; 80076; 82310; 82565; 84520; 84550

== ENCOUNTER 2023-03-31 15:15 | Outpatient (AMB) | payer OTHER, SELFPAY ==
--- NOTE | 2023-03-31 15:16 | A.OFFVIS_ITS ---
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 The patient was referred by Dr. Byers. The patient was last seen on 10/12/21 for low back pain that radiates down to her leg. She reports pain in her lower back that radiates down to her buttocks and pelvic region. She does not have significant pain in her leg, but her ankle is worse. She has mild numbness in her right leg. Her burning and aching pain in the right leg has resolved. 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 She is not performing any particular exercises at home. She was provided with a short course of naproxen 500 mg along with a trial of gabapentin 300 mg. She is intermittently taking gabapentin with minimal to no benefits. She has also tried Tramadol and topical patches with no benefit. Her HbA1C was 12% on the last visit. Her most recent HbA1C was 6.0%. She is not taking ibuprofen due to a history of hypertension. She has established care with an medical stenographer. FORMERLY [facility], LAT[facility] Medical History HTN (hypertension) Insulin dependent diabetes mellitus Rash Surgical History History of back surgery Previous section Family History Father No problems noted. Mother HTN (hypertension) Maternal Grandfather Cancer Sister No problems noted. Social History Housing: House Alcohol intake: unknown Patient Tobacco Use Status: Never used Tobacco e-Cigarette/Vaping Use: Never Used service: No Current occupational status: employed Cognitive needs: No Hearing needs: No Vision needs: Yes Review of Systems Const All systems reviewed & are unremarkable except as noted in HPI and below Physical Exam Vital Signs: Last Vital Signs Pulse 92 03/31/23 15:22 BP 170/88 H 03/31/23 15:47 Pulse Ox 96 03/31/23 15:22 Oxygen Delivery Method Room Air 03/31/23 15:22 BMI result Body Mass Index 50.3 General: Appears afebrile. Alert and oriented. Mood and affect appropriate. Follows and participates in conversation appropriately. Respiratory effort is unlabored. Able to transition from sit to stand unassisted. Ambulates with bilaterally normal heel strike and toe off. Results Reviewed Results Reviewed: 07/24/23: XR LUMBOSACRAL SPINE FINDINGS: Bone alignment is normal. No fracture or dislocation is seen. There is multilevel degenerative spondylosis, degenerative disc disease and facet arthritis. Paraspinal soft tissues are unremarkable. IMPRESSION: Multilevel degenerative changes 07/18/21: US VENOUS ULTRASOUND WITH DOPPLER LOWER EXTREMITY, RIGHT FINDINGS: There is normal venous compression and respiratory variation and augmented flow. The visualized common femoral vein, superficial femoral vein, profunda femoral vein, popliteal vein, and the trifurcation region shows no evidence of deep venous thrombosis. No popliteal fossa cyst demonstrated. IMPRESSION: No DVT demonstrated in the right lower extremity Assessment & Plan Assessment & Plan (1) Lumbar radiculitis: Code(s): M54.16 - Radiculopathy, lumbar region Plan A referral was provided for formal physical therapy. The patient will receive a call to schedule an appointment. A script was also provided to the patient for physical therapy. Her HbA1C has improved from 12% to 6%. I had previously deemed her inappropriate for epidural cortisone/corticosteroids due to her uncontrolled diabetes, but now that her HbA1C is relatively well controlled, we can potentially attempt an epidural steroid injection if physical therapy and stretching is not sufficient in relieving her symptoms. Scribed for Dr. Stevens by Steven Chance expert medical writer, on 03/31/2023. I, Dr. Stevens, have personally reviewed and agree with the information entered by the scribe. Orders: Orders PT Evaluation and Treatment 03/31/23 M54.16 - Radiculopathy, lumbar region Coding Level of Care Code Est Pt Level 3 (91573) Diagnoses Lumbar radiculitis M54.16
[2023-03-31 15:21] VITALS: BP 232/106; PULSE 102; O2SAT 96; BMI 50.3
[2023-03-31 15:22] VITALS: BP 218/88; PULSE 92; O2SAT 96
[2023-03-31 15:47] VITALS: BP 170/88; BP 223/100; BP 225/102
== END 2023-03-31 15:44 | disposition home or self-care (01) ==
PROVIDERS: PCP Internal Medicine; Visit Provider Internal Medicine
DX: M54.16 Radiculopathy, lumbar region (principal)
CPT/HCPCS: 99213

== ENCOUNTER → 2023-03-31 15:15 | Outpatient (BNVA) | payer OTHER, SELFPAY | PROVIDERS: PCP Internal Medicine; Visit Provider Internal Medicine ==

== ENCOUNTER 2023-06-18 12:03 | Outpatient (AMB) | payer OTHER, SELFPAY ==
--- NOTE | 2023-06-18 11:34 | A.OFFPC_ITS ---
Intake Visit Reasons: 3 month follow up [phone] Allergies raspberry [Raspberry] Allergy (Mild, Verified 06/18/23 11:34) HIVES Medication List - Last Reconciled 06/18/23 by Cara Byers MD albuterol sulfate 90 mcg/actuation (ProAir HFA) 1 inh inhalation QID PRN 30 days amlodipine-benazepril 5-20 mg 1 cap PO DAILY citalopram 40 mg PO DAILY 90 days fluticasone propionate 50 mcg/actuation (Flonase Allergy Relief) 1 spray intranasal BID 30 days insulin glargine (Basaglar KwikPen U-100 Insulin) 60 units (0.6 mL) subcut BID lancets (FreeStyle Lancets) As directed lidocaine 5% 1 patch topical DAILY lorazepam 1 mg PO ONCE PRN 30 days nystatin 1 appl topical DAILY 30 days omeprazole 20 mg PO DAILY 90 days pen needle, diabetic (Easy Comfort Pen [place]ermo) B.i.d. propranolol ER 60 mg PO DAILY 90 days semaglutide (Ozempic) 1 mg subcut QWEEK simvastatin 40 mg PO BEDTIME 90 days Tobacco use date assessed: 06/18/23 Dental Screening Dental Screen Date: 06/18/23 Did you have a dental visit in the last 12 months?: No Did you have a dental problem in the last 6 months where you did not have access to dental care?: No Was dental information given to patient?: Patient has dentist HPI 3 month follow up [phone] HPI Details Patient is 53-year-old female this is her regular appointment through telemedicine video Patient would like to see an oral surgeon for lower lip lesion which has been there for a while but is now getting bigger She has already made appointment with Dr. Wilson were August 15. Patient is struggling with depression since the passing of her mother, currently she is on citalopram and is now seeing a mental health specialist Dr. Painter endocrinology is managing her diabetes, hemoglobin A1c is stable She is on insulin as well as Ozempic, however she has not been able to pickler helper was him back as it is back ordered she is trying to get in touch with her endocrinology for further instructions. Complicated migraine headaches: Patient has been taking propranolol for years and is doing well Anxiety: Continue citalopram 40 mg and lorazepam, lorazepam script sent. Patient is aware of side effects. Continue simvastatin labs are needed order placed to be done fasting Omeprazole for chronic GERD. Follow-up 3 months [facility] Medical History HTN (hypertension) Rash Insulin dependent diabetes mellitus Surgical History Previous section History of back surgery Family History Father No problems noted. Mother HTN (hypertension) Maternal Grandfather Cancer Sister No problems noted. Social History Housing: House Alcohol intake: unknown Patient Tobacco Use Status: Never used Tobacco e-Cigarette/Vaping Use: Never Used service: No Current occupational status: employed Cognitive needs: No Hearing needs: No Vision needs: Yes Questionnaire Thrive Questionnaire Date Thrive assessed: 03/07/23 AUDIT C Alcohol Use Questionnaire (AUDIT-C) 1. How often do you have a drink containing alcohol?: 2-4 times a month 2. How many drinks containing alcohol do you have on a typical day when you are drinking?: 1 or 2 3. How often do you have six or more drinks on one occasion?: Never Total Score: 2 Score Reviewed/Action Taken: Yes SARAH-7 AMB Questionnaire SARAH-7 Date SARAH - 7 assessed: 03/07/23 Source: Developed by Drs. Zaheer Suazo, Silvia Gibbs, Thee Ahmadi and colleagues, with an educational esa from [employer]. Review of Systems Const Denies chills and Denies fever(s) ENT Denies epistaxis and Denies nasal discharge Card Denies chest pain Resp Denies chest congestion, Denies cough and Denies hemoptysis GI Denies diarrhea and Denies nausea Skin/Breast Denies rash Neuro Reports no additional complaints Psych Reports no additional complaints Endo Reports no additional complaints Physical exam (Primary Care) Tobacco/Smoking Status: Tobacco use Status Tobacco use date assessed 06/18/23 06/18/23 11:34 Patient Tobacco Use Status Never used Tobacco 06/18/23 11:34 e-Cigarette/Vaping Use Never Used 06/18/23 11:34 Thrive Assessment: Date of Thrive Assessment Date Thrive assessed 03/07/23 06/18/23 11:34 Telehealth Telehealth Location of provider rendering services: practice address Location of patient: address on file Patient Identification confirmed using: Name, : Yes Telehealth method: video Patient verbally consented to treatment: Yes Patient verbally consented to billing insurance company: Yes Patient informed of any privacy concerns related to visit: Yes Assessment and Plan Assessment & Plan (1) Lesion of lip: Code(s): K13.0 - Diseases of lips (2) Diabetes 1.5, managed as type 1: Code(s): E13.9 - Other specified diabetes mellitus without complications (3) custodial (current) use of insulin: Code(s): Z79.4 - custodial (current) use of insulin (4) Diabetic nephropathy with proteinuria: Code(s): E11.21 - Type 2 diabetes mellitus with diabetic nephropathy (5) Depression, major, recurrent: Code(s): F33.9 - Major depressive disorder, recurrent, unspecified Qualifiers: Active/Remission status: in full remission Qualified Code(s): F33.42 - Major depressive disorder, recurrent, in full remission (6) Hypertension, essential: Code(s): I10 - Essential (primary) hypertension (7) Anxiety, generalized: Code(s): F41.1 - Generalized anxiety disorder (8) Lipid disorder: Code(s): E78.9 - Disorder of lipoprotein metabolism, unspecified (9) Chronic GERD: Code(s): K21.9 - Gastro-esophageal reflux disease without esophagitis (10) Headache syndrome: Code(s): G44.89 - Other headache syndrome Plan Patient is 53-year-old female this is her regular appointment through telemedicine video Patient would like to see an oral surgeon for lower lip lesion which has been there for a while but is now getting bigger She has already made appointment with Dr. Wilson were August 15. Patient is struggling with depression since the passing of her mother, currently she is on citalopram and is now seeing a mental health specialist Dr. Painter endocrinology is managing her diabetes, hemoglobin A1c is stable She is on insulin as well as Ozempic, however she has not been able to pickler helper was him back as it is back ordered she is trying to get in touch with her endocrinology for further instructions. Complicated migraine headaches: Patient has been taking propranolol for years and is doing well Anxiety: Continue citalopram 40 mg and lorazepam, lorazepam script sent. Patient is aware of side effects. Continue simvastatin labs are needed order placed to be done fasting Omeprazole for chronic GERD. 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 Lipid Panel Today E11.21 - Type 2 diabetes mellitus with diabetic nephropathy, E13.9 - Other specified diabetes mellitus without complications, F33.9 - Major depressive disorder, recurrent, unspecified, F41.1 - Generalized anxiety disorder, I10 - Essential (primary) hypertension, K13.0 - Diseases of lips, 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 of 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 TSH reflex Free T4 Today E11.21 - Type 2 diabetes mellitus with diabetic nephropathy, E13.9 - Other specified diabetes mellitus without complications, F33.9 - Major depressive disorder, recurrent, unspecified, F41.1 - Generalized anxiety disorder, I10 - Essential (primary) hypertension, K13.0 - Diseases of lips, Z79.4 - custodial (current) use of insulin Vitamin D 25-OH (D2 and D3) Today E11.21 - Type 2 diabetes mellitus with diabetic nephropathy, E13.9 - Other specified diabetes mellitus without complications, F33.9 - Major depressive disorder, recurrent, unspecified, F41.1 - Generalized anxiety disorder, I10 - Essential (primary) hypertension, K13.0 - Diseases of lips, 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 Panel Fast Today E11.21 - Type 2 diabetes mellitus with diabetic nephropathy, E13.9 - Other specified diabetes mellitus without complications, F33.9 - Major depressive disorder, recurrent, unspecified, F41.1 - Generalized anxiety disorder, I10 - Essential (primary) hypertension, K13.0 - Diseases of lips, Z79.4 - custodial (current) use of insulin Hemoglobin A1c Today E11.21 - Type 2 diabetes mellitus with diabetic nephropathy, E13.9 - Other specified diabetes mellitus without complications, F33.9 - Major depressive disorder, recurrent, unspecified, F41.1 - Generalized anxiety disorder, I10 - Essential (primary) hypertension, K13.0 - Diseases of lips, Z79.4 - custodial (current) use of insulin Referrals Oral Surgery Referal K13.0 - Diseases of lips Medications: Changed From lorazepam 1 mg PO ONCE 30 days PRN 30 tabs 2RF anxiety F41.1 - Generalized anxiety disorder To lorazepam 1 mg PO ONCE 90 days PRN 90 tabs 0RF anxiety F41.1 - Generalized anxiety disorder Refilled 2 simvastatin 40 mg PO BEDTIME 90 days 90 tabs 3RF E78.9 - Disorder of lipoprotein metabolism, unspecified omeprazole 20 mg PO DAILY 90 days 90 caps 0RF K21.9 - Gastro-esophageal reflux disease without esophagitis Coding Level of Care Code Tele Est Pt Level 4 (60231) Diagnoses Lesion of lip K13.0 Diabetes 1.5, managed as type 1 E13.9 custodial (current) use of insulin Z79.4 Diabetic nephropathy with proteinuria E11.21 Recurrent major depressive disorder, in full remission F33.42 Active/Remission status: in full remission Hypertension, essential I10 Anxiety, generalized F41.1 Lipid disorder E78.9 Chronic GERD K21.9 Headache syndrome G44.89 Comment 5 prep, 14 with patient, 11 charting/coordination of care
== END 2023-06-18 13:06 | disposition home or self-care (01) ==
LOC: HO.HMGC 12:03
PROVIDERS: PCP Internal Medicine; Visit Provider Internal Medicine
DX: E11.21 Type 2 diabetes mellitus with diabetic nephropathy (principal); Z79.4 Long term (current) use of insulin; F33.42 Major depressive disorder, recurrent, in full remission; K13.0 Diseases of lips; I10 Essential (primary) hypertension; F41.1 Generalized anxiety disorder; E78.9 Disorder of lipoprotein metabolism, unspecified; K21.9 Gastro-esophageal reflux disease without esophagitis; G44.89 Other headache syndrome
CPT/HCPCS: 99214

== ENCOUNTER 2023-08-21 07:45 | Outpatient (REF) | payer OTHER, SELFPAY ==
[2023-08-21 12:56] LABS: Appearance Urine Cloudy; Color Urine Dark Yellow; Glucose Urine UA >=1000 mg/dL (Negative); Leukocyte Esterase Urine Negative (Negative); Nitrite Urine Negative (Negative); PH 5.5 (5.0-9.0); Specific Gravity - Urine >= 1.030 (1.005-1.025); UMIC TRIGGER UACC YES; Urine Blood Negative (Negative); Urine Ketones 15 mg/dL (Negative); Urine Protein 300 (3+) mg/dL (Neg-Trace)
[2023-08-21 13:10] LABS: Bacteria Urine 4+ (None Seen); Hyaline Casts Urine 0-2 /LPF (0-2); Squamous Epithelial Cell Urine >20 /HPF (0-2); UACC Culture Trigger YES
== END 2023-08-21 07:46 | disposition home or self-care (01) ==
LOC: HO.HMGCLDS 07:45
PROVIDERS: PCP Internal Medicine; Visit Provider Internal Medicine
DX: R30.0 Dysuria (principal)
CPT/HCPCS: 81001; 81003; 87086

== ENCOUNTER 2023-09-15 07:35 | Outpatient (REF) | payer OTHER, SELFPAY ==
[2023-09-15 10:55] LABS: MANUAL DIFF FLAG NO
[2023-09-15 11:07] LABS: Basophils Absolute Auto 0.1 X10*3/uL (0.0-0.2); Basophils Percent Auto 0.9 % (0-2); Eosinophils Absolute Auto 0.3 X10*3/uL (0.0-0.4); Eosinophils Percent Auto 6.2 % (0-4); Hematocrit 38.5 % (37.0-47.0); Hemoglobin 12.7 g/dl (12.0-16.0); Imm Gran Abs Auto 0.02 X10*3/uL (0.00-0.03); Imm Gran Pct Auto 0.4 % (0.0-0.4); Lymphocytes Absolute Auto 1.4 X10*3/uL (1.2-4.9); Lymphocytes Percent Auto 25.4 % (20-40); Mean Corpuscular Hemoglobin 32.2 pg (27.0-33.0); Mean Corpuscular Volume 97.5 fL (80.0-98.0); Mean Platelet Volume 11.4 fL (9.4-12.3); Monocytes Absolute Auto 0.4 X10*3/uL (0.1-1.2); Monocytes Percent Auto 6.6 % (2-11); Neutrophils Absolute Auto 3.3 x10*3/uL (2.0-8.3); Neutrophils Percent Auto 60.5 % (45-73); Platelet Count 175 X10*3/uL (160-400); Red Blood Count 3.95 X10*6/uL (4.20-5.50); Red Cell Distribution Width 11.9 % (11.0-16.0); White Blood Count 5.5 X10*3/uL (4.8-10.8)
[2023-09-15 11:16] LABS: Estimated Average Glucose 266 mg/dL; Hemoglobin A1c % 10.9 % (<6.0)
[2023-09-15 11:28] LABS: Alanine Aminotransferase 28 U/L (0-31); Alkaline Phosphatase 132 U/L (39-117); Anion Gap 16 (12-20); Aspartate Amino Transferase 52 U/L (5-31); Bilirubin Total 0.5 mg/dL (0.0-1.0); Blood Urea Nitrogen 13 mg/dL (9-16); Calcium 9.6 mg/dL (8.4-10.2); Carbon Dioxide 23 mmol/L (22-29); Chloride 103 mmol/L (96-108); Cholesterol 222 mg/dL (<200); Estimated Glomerular Filt Rate 57; Glucose Fasting 156 mg/dL (60-99); HDL Cholesterol 67 mg/dL (>40); Potassium 4.7 mmol/L (3.3-5.1); Sodium 137 mmol/L (135-145); Triglycerides 403 mg/dL (<150)
[2023-09-15 11:31] LABS: Creatinine Urine 226.12 mg/dL; Microalbum/Creatinine Ratio Ur 117.1 ug/mg cr (<30)
[2023-09-21 12:49] LABS: Vitamin D 25-OH, D2 <4 ng/mL; Vitamin D 25-OH, D3 <4 ng/mL; Vitamin D 25-OH, Total <4 ng/mL (30-100)
== END 2023-09-15 07:36 | disposition home or self-care (01) ==
LOC: HO.HMGCLDS 07:35
PROVIDERS: PCP Internal Medicine; Visit Provider Internal Medicine
DX: E11.21 Type 2 diabetes mellitus with diabetic nephropathy (principal); F33.9 Major depressive disorder, recurrent, unspecified; I10 Essential (primary) hypertension; F41.1 Generalized anxiety disorder; K13.0 Diseases of lips; E78.9 Disorder of lipoprotein metabolism, unspecified; Z79.4 Long term (current) use of insulin
CPT/HCPCS: 36415; 80053; 80061; 82043; 82306; 82570; 83036; 84443; 85025

== ENCOUNTER 2023-09-16 11:12 | Outpatient (AMB) | payer OTHER, SELFPAY ==
--- NOTE | 2023-09-16 11:13 | MHC.PC.OV ---
Intake Visit Reasons: 3 Month Follow Up Anxiety [phone] Allergies raspberry [Raspberry] Allergy (Mild, Verified 09/16/23 11:13) HIVES Medication List - Last Reconciled 09/16/23 by Cara Byers MD albuterol sulfate 90 mcg/actuation (ProAir HFA) 1 inh inhalation QID PRN 30 days amlodipine-benazepril 5-20 mg 1 cap PO DAILY citalopram 40 mg PO DAILY 90 days fluticasone propionate 50 mcg/actuation (Flonase Allergy Relief) 1 spray intranasal BID 30 days insulin glargine (Basaglar KwikPen U-100 Insulin) 60 units (0.6 mL) subcut BID lancets (FreeStyle Lancets) As directed lidocaine 5% 1 patch topical DAILY lorazepam 1 mg PO ONCE PRN 90 days nitrofurantoin monohyd/m-cryst 100 mg (Macrobid) 100 mg PO Q12H 7 days nystatin 1 appl topical DAILY 30 days omeprazole 20 mg PO DAILY 90 days pen needle, diabetic (Easy Comfort Pen [place]) B.i.d. propranolol ER 60 mg PO DAILY 90 days semaglutide (Ozempic) 1 mg subcut QWEEK simvastatin 40 mg PO BEDTIME 90 days Tobacco use date assessed: 09/16/23 Dental Screening Dental Screen Date: 09/16/23 Did you have a dental visit in the last 12 months?: No Did you have a dental problem in the last 6 months where you did not have access to dental care?: No Was dental information given to patient?: Patient has dentist HPI 3 Month Follow Up Anxiety [phone] HPI Details Patient is 53-year-old female this is her regular appointment through telemedicine video Patient has seen Dr. Wilson , she is waiting to have a biopsy on lower lip lesion Depression: currently she is on citalopram and is now seeing a mental health specialist She is also on lorazepam for anxiety, patient is complying with the treatment plan Dr. Painter endocrinology is managing her diabetes, hemoglobin A1c has gotten out of control at 10.9, patient could not get her Ozempic refilled as pharmacy did not had it She is on insulin as well as Ozempic, she has started using Humalog as well, but now she has Ozempic and sugar has been running better She has appointment coming up this month with Dr. Hartman Complicated migraine headaches: Patient has been taking propranolol for years and is doing well Continue simvastatin Omeprazole for chronic GERD. Blood pressure management through Nephrology Patient also have a diabetic kidney disease with microalbuminuria Morbid obesity, difficulty losing weight Follow-up 3 months [facility] Medical History HTN (hypertension) Rash Insulin dependent diabetes mellitus Surgical History Previous section History of back surgery Family History Father No problems noted. Mother HTN (hypertension) Maternal Grandfather Cancer Sister No problems noted. Social History Housing: House Alcohol intake: unknown Patient Tobacco Use Status: Never used Tobacco e-Cigarette/Vaping Use: Never Used service: No Current occupational status: employed Cognitive needs: No Hearing needs: No Vision needs: Yes Questionnaire Thrive Questionnaire Date Thrive assessed: 03/07/23 AUDIT C Alcohol Use Questionnaire (AUDIT-C) 1. How often do you have a drink containing alcohol?: 2-4 times a month 2. How many drinks containing alcohol do you have on a typical day when you are drinking?: 1 or 2 3. How often do you have six or more drinks on one occasion?: Never Total Score: 2 Score Reviewed/Action Taken: Yes SARAH-7 AMB Questionnaire SARAH-7 Date SARAH - 7 assessed: 03/07/23 Source: Developed by Drs. Zaheer Suazo, Silvia Gibbs, Thee Ahmadi and colleagues, with an educational esa from [employer]. Review of Systems Const Denies chills and Denies fever(s) ENT Denies epistaxis and Denies nasal discharge Card Denies chest pain Resp Denies chest congestion, Denies cough and Denies hemoptysis GI Denies diarrhea and Denies nausea Skin/Breast Denies rash Neuro Reports no additional complaints Psych Reports no additional complaints Endo Reports no additional complaints Physical exam (Primary Care) Tobacco/Smoking Status: Tobacco use Status Tobacco use date assessed 09/16/23 09/16/23 11:14 Patient Tobacco Use Status Never used Tobacco 09/16/23 11:14 e-Cigarette/Vaping Use Never Used 09/16/23 11:14 Thrive Assessment: Date of Thrive Assessment Date Thrive assessed 03/07/23 09/16/23 11:14 Telehealth Telehealth Location of provider rendering services: practice address Location of patient: address on file Patient Identification confirmed using: Name, : Yes Telehealth method: video Patient verbally consented to treatment: Yes Patient verbally consented to billing insurance company: Yes Patient informed of any privacy concerns related to visit: Yes Assessment and Plan Assessment & Plan (1) Lesion of lip: Code(s): K13.0 - Diseases of lips (2) Diabetes 1.5, managed as type 1: Code(s): E13.9 - Other specified diabetes mellitus without complications (3) residential (current) use of insulin: Code(s): Z79.4 - residential (current) use of insulin (4) Diabetic nephropathy with proteinuria: Code(s): E11.21 - Type 2 diabetes mellitus with diabetic nephropathy (5) Depression, major, recurrent: Code(s): F33.9 - Major depressive disorder, recurrent, unspecified Qualifiers: Active/Remission status: in full remission Qualified Code(s): F33.42 - Major depressive disorder, recurrent, in full remission (6) Hypertension, essential: Code(s): I10 - Essential (primary) hypertension (7) Anxiety, generalized: Code(s): F41.1 - Generalized anxiety disorder (8) Lipid disorder: Code(s): E78.9 - Disorder of lipoprotein metabolism, unspecified (9) Chronic GERD: Code(s): K21.9 - Gastro-esophageal reflux disease without esophagitis (10) Headache syndrome: Code(s): G44.89 - Other headache syndrome (11) Microalbuminuria due to type 2 diabetes mellitus: Code(s): E11.29 - Type 2 diabetes mellitus with other diabetic kidney complication; R80.9 - Proteinuria, unspecified Plan Patient is 53-year-old female this is her regular appointment through telemedicine video Patient has seen Dr. Wilson , she is waiting to have a biopsy on lower lip lesion Depression: currently she is on citalopram and is now seeing a mental health specialist She is also on lorazepam for anxiety, patient is complying with the treatment plan Dr. Painter endocrinology is managing her diabetes, hemoglobin A1c has gotten out of control at 10.9, patient could not get her Ozempic refilled as pharmacy did not had it She is on insulin as well as Ozempic, she has started using Humalog as well, but now she has Ozempic and sugar has been running better She has appointment coming up this month with Dr. Hartman Complicated migraine headaches: Patient has been taking propranolol for years and is doing well Continue simvastatin Omeprazole for chronic GERD. Blood pressure management through Nephrology Patient also have a diabetic kidney disease with microalbuminuria Morbid obesity, difficulty losing weight Follow-up 3 months Medications: Refilled lorazepam 1 mg PO ONCE PRN 90 tabs 0RF anxiety 90 days F41.1 - Generalized anxiety disorder citalopram 40 mg PO DAILY 90 tabs 0RF 90 days Coding Level of Care Code Tele Est Pt Level 4 (14589) Diagnoses Lesion of lip K13.0 Diabetes 1.5, managed as type 1 E13.9 residential (current) use of insulin Z79.4 Diabetic nephropathy with proteinuria E11.21 Recurrent major depressive disorder, in full remission F33.42 Active/Remission status: in full remission Hypertension, essential I10 Anxiety, generalized F41.1 Lipid disorder E78.9 Chronic GERD K21.9 Headache syndrome G44.89 Microalbuminuria due to type 2 diabetes mellitus E11.29; R80.9 Time Spent (min) 30 Comment 5 prep / 14 with patient/ 6 charting / 5 coordination of care
== END 2023-09-16 14:25 | disposition home or self-care (01) ==
LOC: HO.HMGC 11:12
PROVIDERS: PCP Internal Medicine; Visit Provider Internal Medicine
DX: E11.21 Type 2 diabetes mellitus with diabetic nephropathy (principal); Z79.4 Long term (current) use of insulin; F33.42 Major depressive disorder, recurrent, in full remission; E11.29 Type 2 diabetes mellitus with other diabetic kidney complication; K13.0 Diseases of lips; I10 Essential (primary) hypertension; F41.1 Generalized anxiety disorder; E78.9 Disorder of lipoprotein metabolism, unspecified; K21.9 Gastro-esophageal reflux disease without esophagitis; G44.89 Other headache syndrome; R80.9 Proteinuria, unspecified
CPT/HCPCS: 99214

== ENCOUNTER 2023-12-04 08:36 | Outpatient (AMB) | payer OTHER, SELFPAY ==
--- NOTE | 2023-12-04 09:07 | A.OFFPC_ITS ---
Intake Visit Reasons: 11 week follow up [phone] Allergies raspberry [Raspberry] Allergy (Mild, Verified 12/04/23 09:08) HIVES Medication List - Last Reconciled 12/04/23 by Cara Byers MD albuterol sulfate 90 mcg/actuation (ProAir HFA) 1 inh inhalation QID PRN 30 days amlodipine-benazepril 5-20 mg 1 cap PO DAILY citalopram 40 mg PO DAILY 90 days fluticasone propionate 50 mcg/actuation (Flonase Allergy Relief) 1 spray intranasal BID 30 days gabapentin 300 mg PO TID insulin glargine (Basaglar KwikPen U-100 Insulin) 60 units (0.6 mL) subcut BID lancets (FreeStyle Lancets) As directed lidocaine 5% 1 patch topical DAILY lorazepam 1 mg PO ONCE PRN 90 days nystatin 1 appl topical DAILY 30 days omeprazole 20 mg PO DAILY 90 days pen needle, diabetic (Easy Comfort Pen [place]) B.i.d. propranolol ER 60 mg PO DAILY 90 days semaglutide (Ozempic) 1 mg subcut QWEEK simvastatin 40 mg PO BEDTIME 90 days Tobacco use date assessed: 12/04/23 Dental Screening Dental Screen Date: 12/04/23 Did you have a dental visit in the last 12 months?: Yes Did you have a dental problem in the last 6 months where you did not have access to dental care?: No Was dental information given to patient?: Patient has dentist HPI 11 week follow up [phone] HPI Details Patient is 53-year-old female this is her regular appointment through telemedicine video Patient has seen Dr. Wilson , biopsy was recommended however her insurance is not paying for that procedure without the use deductible Patient is requesting a referral to General surgery for biopsy which I have placed for. Depression: currently she is on citalopram for depression She is also on lorazepam for anxiety, patient is complying with the treatment plan Refills sent for lorazepam for next [address] Painter endocrinology is managing her diabetes, patient has finally got her full dose of Ozempic And her sugars are much better now, running around 126 fasting, she has appointment coming up with for follow-up in 1 week Complicated migraine headaches: Patient has been taking propranolol for years and is doing well Continue simvastatin Omeprazole for chronic GERD. Blood pressure management through Nephrology Patient also have a diabetic kidney disease with microalbuminuria She will be having labs in her week or so before she sees the Nephrology Morbid obesity, difficulty losing weight Follow-up 3 months COUNTS INCLUDE 234 BEDS AT [facility] Medical History HTN (hypertension) Rash Insulin dependent diabetes mellitus Surgical History Previous section History of back surgery Family History Father No problems noted. Mother HTN (hypertension) Maternal Grandfather Cancer Sister No problems noted. Social History Housing: House Alcohol intake: unknown Patient Tobacco Use Status: Never used Tobacco e-Cigarette/Vaping Use: Never Used service: No Current occupational status: employed Cognitive needs: No Hearing needs: No Vision needs: Yes Questionnaire Thrive Questionnaire Date Thrive assessed: 03/07/23 AUDIT C Alcohol Use Questionnaire (AUDIT-C) 1. How often do you have a drink containing alcohol?: 2-4 times a month 2. How many drinks containing alcohol do you have on a typical day when you are drinking?: 1 or 2 3. How often do you have six or more drinks on one occasion?: Never Total Score: 2 Score Reviewed/Action Taken: Yes SARAH-7 AMB Questionnaire SARAH-7 Date SARAH - 7 assessed: 03/07/23 Source: Developed by Drs. Zaheer Suazo, Silvia Gibbs, Thee Ahmadi and colleagues, with an educational esa from [employer]. Review of Systems Const Denies chills and Denies fever(s) ENT Denies epistaxis and Denies nasal discharge Card Denies chest pain Resp Denies chest congestion, Denies cough and Denies hemoptysis GI Denies diarrhea and Denies nausea Skin/Breast Denies rash Neuro Reports no additional complaints Psych Reports no additional complaints Endo Reports no additional complaints Physical exam (Primary Care) Tobacco/Smoking Status: Tobacco use Status Tobacco use date assessed 12/04/23 12/04/23 09:09 Patient Tobacco Use Status Never used Tobacco 12/04/23 09:09 e-Cigarette/Vaping Use Never Used 12/04/23 09:09 Thrive Assessment: Date of Thrive Assessment Date Thrive assessed 03/07/23 12/04/23 09:09 Telehealth Telehealth Location of provider rendering services: practice address Location of patient: address on file Patient Identification confirmed using: Name, : Yes Telehealth method: video Patient verbally consented to treatment: Yes Patient verbally consented to billing insurance company: Yes Patient informed of any privacy concerns related to visit: Yes Assessment and Plan Assessment & Plan (1) Lesion of lip: Code(s): K13.0 - Diseases of lips (2) Diabetes 1.5, managed as type 1: Code(s): E13.9 - Other specified diabetes mellitus without complications (3) 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: Code(s): Z79.4 - intermediate (current) use of insulin (4) Diabetic nephropathy with proteinuria: Code(s): E11.21 - Type 2 diabetes mellitus with diabetic nephropathy (5) Depression, major, recurrent: Code(s): F33.9 - Major depressive disorder, recurrent, unspecified Qualifiers: Active/Remission status: in full remission Qualified Code(s): F33.42 - Major depressive disorder, recurrent, in full remission (6) Hypertension, essential: Code(s): I10 - Essential (primary) hypertension (7) Anxiety, generalized: Code(s): F41.1 - Generalized anxiety disorder (8) Lipid disorder: Code(s): E78.9 - Disorder of lipoprotein metabolism, unspecified (9) Chronic GERD: Code(s): K21.9 - Gastro-esophageal reflux disease without esophagitis (10) Headache syndrome: Code(s): G44.89 - Other headache syndrome (11) Microalbuminuria due to type 2 diabetes mellitus: Code(s): E11.29 - Type 2 diabetes mellitus with other diabetic kidney complication; R80.9 - Proteinuria, unspecified Plan Patient is 53-year-old female this is her regular appointment through telemedicine video Patient has seen Dr. Wilson , biopsy was recommended however her insurance is not paying for that procedure without the use deductible Patient is requesting a referral to General surgery for biopsy which I have placed for. Depression: currently she is on citalopram for depression She is also on lorazepam for anxiety, patient is complying with the treatment plan Refills sent for lorazepam for next [address] Painter endocrinology is managing her diabetes, patient has finally got her full dose of Ozempic And her sugars are much better now, running around 126 fasting, she has appointment coming up with for follow-up in 1 week Complicated migraine headaches: Patient has been taking propranolol for years and is doing well Continue simvastatin Omeprazole for chronic GERD. 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
== END 2023-12-04 16:29 | disposition home or self-care (01) ==
PROVIDERS: PCP Internal Medicine; Visit Provider Internal Medicine
DX: E11.21 Type 2 diabetes mellitus with diabetic nephropathy (principal); Z79.4 Long term (current) use of insulin; F33.42 Major depressive disorder, recurrent, in full remission; E11.29 Type 2 diabetes mellitus with other diabetic kidney complication; K13.0 Diseases of lips; I10 Essential (primary) hypertension; F41.1 Generalized anxiety disorder; E78.9 Disorder of lipoprotein metabolism, unspecified; K21.9 Gastro-esophageal reflux disease without esophagitis; G44.89 Other headache syndrome; R80.9 Proteinuria, unspecified
CPT/HCPCS: 99213

== ENCOUNTER 2024-01-08 16:09 | Outpatient (AMB) | payer OTHER, SELFPAY ==
[2024-01-08 16:09] VITALS: BP 142/76; PULSE 71; O2SAT 92; BMI 50.3
--- NOTE | 2024-01-08 16:09 | HO.NEPHOV_ITS ---
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 [facility] Medical History HTN (hypertension) Rash Insulin dependent diabetes mellitus Surgical History Previous section History of back surgery Family History Father No problems noted. Mother HTN (hypertension) Maternal Grandfather Cancer Sister No problems noted. Social History Housing: House Alcohol intake: unknown Patient Tobacco Use Status: Never used Tobacco e-Cigarette/Vaping Use: Never Used service: No Current occupational status: employed Cognitive needs: No Hearing needs: No Vision needs: Yes Physical Exam Vital Signs: Last Vital Signs Pulse 71 01/08/24 16:09 BP 142/76 H 01/08/24 16:09 Pulse Ox 92 01/08/24 16:09 Oxygen Delivery Method Room Air 01/08/24 16:09 BMI result Body Mass Index 50.3 Const General: comfortable Nutritional Appearance: well nourished Orientation/consciousness: patient oriented x3 HEENT Head: No normal to inspection Mouth: moist mucous membranes Neck Neck: Yes supple and Yes no JVD Resp Auscultation: clear to auscultation bilaterally, no rales and rub present Cardio Jugular venous distension: no JVD Palpation: no palpable S3 and no palpable S4 Heart sounds: no rubs GI Palpation (GI): Soft to palpation and nontender Percussion: No Fluid wave present General: Yes no CVA tenderness Back/Spine/Pelvis Back: no CVA tenderness Skin General skin exam: no rashes or lesions noted Neuro General: patient oriented x3 Extrem General: Yes no pedal edema and No clubbing Results Reviewed Nephrology Results: Hgb 12.7 g/dl (12.0-16.0) 09/15/23 WBC 5.5 X10*3/uL (4.8-10.8) 09/15/23 Plt Count 175 X10*3/uL (160-400) 09/15/23 Sodium 137 mmol/L (135-145) 09/15/23 Potassium 4.7 mmol/L (3.3-5.1) 09/15/23 Chloride 103 mmol/L (96-108) 09/15/23 Carbon Dioxide 23 mmol/L (22-29) 09/15/23 BUN 13 mg/dL (9-16) 09/15/23 Creatinine 1.01 mg/dL (0.5-1.4) 09/15/23 Calcium 9.6 mg/dL (8.4-10.2) 09/15/23 Urine Protein 300 (3+) mg/dL (Neg-Trace) H 08/21/23 Urine Creatinine 226.12 mg/dL 09/15/23 Assessment & Plan Assessment & Plan (1) Microalbuminuria due to type 2 diabetes mellitus: Code(s): E11.29 - Type 2 diabetes mellitus with other diabetic kidney complication; R80.9 - Proteinuria, unspecified Category: Medical (2) Hypertension, essential: Code(s): I10 - Essential (primary) hypertension Category: Medical Plan 53 yr old woman with HTN and DM in a setting of elevated BMI of 50 and microabluminuria Renal function is normal at baseline Goal is to maintain BP < 130/80 She will benefit from weight loss Maintain A1C < 7% Continue JANNET inhibition and SGLT-2 inhibitors Low salt diet Orders: Orders Basic Metabolic Panel 6 Weeks . - Type 2 diabetes mellitus with other diabetic kidney complication, R80.9 - Proteinuria, unspecified Creatinine Urine 6 Weeks - Type 2 diabetes mellitus with other diabetic kidney complication, N05.9 - Unspecified nephritic syndrome with unspecified morphologic changes, R80.9 - Proteinuria, unspecified Hemoglobin A1c 6 Weeks - Type 2 diabetes mellitus with other diabetic kidney complication, R80.9 - Proteinuria, unspecified Total Protein Urine Random 6 Weeks E11.29 - Type 2 diabetes mellitus with other diabetic kidney complication, R80.9 - Proteinuria, unspecified Complete Blood Count Auto Diff 6 Weeks E11.29 - Type 2 diabetes mellitus with other diabetic kidney complication, N18.30 - Chronic kidney disease, stage 3 unspecified, R80.9 - Proteinuria, unspecified Coding Level of Care Code Est Pt Level 4 (05577) Diagnoses Microalbuminuria due to type 2 diabetes mellitus E11.; R80.9 Hypertension, essential I10
== END 2024-01-08 16:29 | disposition home or self-care (01) ==
PROVIDERS: PCP Internal Medicine; Visit Provider Internal Medicine Hypertension Specialist
DX: E11.29 Type 2 diabetes mellitus with other diabetic kidney complication (principal); R80.9 Proteinuria, unspecified; I10 Essential (primary) hypertension
CPT/HCPCS: 99214

== ENCOUNTER → 2024-01-08 16:09 | Outpatient (BNVA) | payer OTHER, SELFPAY | PROVIDERS: PCP Internal Medicine; Visit Provider Internal Medicine Hypertension Specialist ==

== ENCOUNTER 2024-01-20 09:58 | Outpatient (REF) | payer OTHER, SELFPAY ==
[2024-01-20 13:25] LABS: Appearance Urine Clear; Color Urine Yellow; Glucose Urine UA Negative (Negative); Leukocyte Esterase Urine Negative (Negative); Nitrite Urine Negative (Negative); Urine Blood Negative (Negative); Urine Ketones Negative (Negative); Urine Protein Trace mg/dL (Neg-Trace)
== END 2024-01-20 09:59 | disposition home or self-care (01) ==
LOC: HO.HMGCLDS 09:58
PROVIDERS: PCP Internal Medicine; Visit Provider Internal Medicine
DX: R30.0 Dysuria (principal)
CPT/HCPCS: 81003

== ENCOUNTER 2024-02-12 07:42 | Outpatient (REF) | payer OTHER, SELFPAY ==
[2024-02-12 10:31] LABS: MANUAL DIFF FLAG NO
[2024-02-12 10:37] LABS: Basophils Absolute Auto 0.1 X10*3/uL (0.0-0.2); Eosinophils Absolute Auto 0.3 X10*3/uL (0.0-0.4); Eosinophils Percent Auto 5.6 % (0-4); Hematocrit 35.5 % (37.0-47.0); Hemoglobin 12.1 g/dl (12.0-16.0); Imm Gran Abs Auto 0.02 X10*3/uL (0.00-0.03); Imm Gran Pct Auto 0.4 % (0.0-0.4); Lymphocytes Absolute Auto 1.2 X10*3/uL (1.2-4.9); Lymphocytes Percent Auto 24.6 % (20-40); Mean Corpuscular HGB Conc 34.1 g/dl (31.0-35.0); Mean Corpuscular Hemoglobin 32.4 pg (27.0-33.0); Mean Corpuscular Volume 95.2 fL (80.0-98.0); Mean Platelet Volume 10.6 fL (9.4-12.3); Monocytes Absolute Auto 0.3 X10*3/uL (0.1-1.2); Monocytes Percent Auto 6.7 % (2-11); Neutrophils Percent Auto 61.7 % (45-73); Platelet Count 151 X10*3/uL (160-400); Red Blood Count 3.73 X10*6/uL (4.20-5.50); Red Cell Distribution Width 12.9 % (11.0-16.0); White Blood Count 4.8 X10*3/uL (4.8-10.8)
[2024-02-12 10:47] LABS: Estimated Average Glucose 140 mg/dL; Hemoglobin A1c % 6.5 % (<6.0)
[2024-02-12 10:48] LABS: Anion Gap 16 (12-20); Blood Urea Nitrogen 11 mg/dL (9-16); Calcium 9.4 mg/dL (8.4-10.2); Carbon Dioxide 22 mmol/L (22-29); Chloride 99 mmol/L (96-108); Estimated Glomerular Filt Rate > 60; Glucose Random 132 mg/dL (60-115); Potassium 4.7 mmol/L (3.3-5.1); Sodium 132 mmol/L (135-145)
[2024-02-12 10:52] LABS: Cholesterol 230 mg/dL (<200); HDL Cholesterol 73 mg/dL (>40); LDL Cholesterol Calculated 90 mg/dL (<100); Triglycerides 335 mg/dL (<150)
[2024-02-12 11:02] LABS: Creatinine Urine 45.25 mg/dL; Total Protein Urine Random 29 mg/dL (<12)
[2024-02-13 12:13] LABS: LDL Cholesterol Direct 130 mg/dL (<100)
== END 2024-02-12 07:43 | disposition home or self-care (01) ==
LOC: HO.HMGCLDS 07:42
PROVIDERS: PCP Internal Medicine; Referring Provider Internal Medicine Endocrinology, Diabetes & Metabolism; Visit Provider Internal Medicine Hypertension Specialist
DX: E11.29 Type 2 diabetes mellitus with other diabetic kidney complication (principal); R80.9 Proteinuria, unspecified; N18.30 Chronic kidney disease, stage 3 unspecified; N05.9 Unspecified nephritic syndrome with unspecified morphologic changes; E11.21 Type 2 diabetes mellitus with diabetic nephropathy; Z79.4 Long term (current) use of insulin; E78.5 Hyperlipidemia, unspecified
CPT/HCPCS: 36415; 80048; 80061; 82570; 83036; 83721; 84156; 85025

== ENCOUNTER 2024-02-19 08:14 | Outpatient (AMB) | payer OTHER, SELFPAY ==
--- NOTE | 2024-02-19 08:23 | MHC.PC.OV ---
Intake Visit Reasons: Medication follow up [phone] Allergies raspberry [Raspberry] Allergy (Mild, Verified 02/19/24 08:26) HIVES Tobacco use date assessed: 02/19/24 Dental Screening Dental Screen Date: 02/19/24 Did you have a dental visit in the last 12 months?: Yes Did you have a dental problem in the last 6 months where you did not have access to dental care?: No Was dental information given to patient?: Patient has dentist HPI Medication follow up [phone] HPI Details Patient is 53-year-old female this is her regular appointment through telemedicine video labs done this month reviewed, Na came back slighly low at 132 lip lesion :----- Depression: currently she is on citalopram for depression She is also on lorazepam for anxiety, patient is complying with the treatment plan Refills sent for lorazepam for next [address] Painter endocrinology is managing her diabetes, patient is on Ozempic had labs done recently, Hba1c came back at 6.5 Complicated migraine headaches: Patient has been taking propranolol for years and is doing well Continue simvastatin Omeprazole for chronic GERD. Blood pressure management through Nephrology Patient also have a diabetic kidney disease with microalbuminuria her GFR has improved to 60, it was 57 in Sep of this year Morbid obesity, difficulty losing weight Follow-up 3 months [facility] Medical History HTN (hypertension) Rash Insulin dependent diabetes mellitus Surgical History Previous section History of back surgery Family History Father No problems noted. Mother HTN (hypertension) Maternal Grandfather Cancer Sister No problems noted. Social History Housing: House Alcohol intake: unknown Patient Tobacco Use Status: Never used Tobacco e-Cigarette/Vaping Use: Never Used service: No Current occupational status: employed Cognitive needs: No Hearing needs: No Vision needs: Yes Questionnaire Thrive Questionnaire Date Thrive assessed: 03/07/23 SARAH-7 AMB Questionnaire SARAH-7 Date SARAH - 7 assessed: 03/07/23 Source: Developed by Drs. Zaheer Suazo, Silvia Gibbs, Thee Ahmadi and colleagues, with an educational esa from [employer]. 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 (3) Diabetic nephropathy with proteinuria: Code(s): E11.21 - Type 2 diabetes mellitus with diabetic nephropathy (4) Depression, major, recurrent: Code(s): F33.9 - Major depressive disorder, recurrent, unspecified Qualifiers: Active/Remission status: in full remission Qualified Code(s): F33.42 - Major depressive disorder, recurrent, in full remission (5) Hypertension, essential: Code(s): I10 - Essential (primary) hypertension (6) Anxiety, generalized: Code(s): F41.1 - Generalized anxiety disorder (7) Lipid disorder: Code(s): E78.9 - Disorder of lipoprotein metabolism, unspecified (8) Chronic GERD: Code(s): K21.9 - Gastro-esophageal reflux disease without esophagitis (9) Headache syndrome: Code(s): G44.89 - Other headache syndrome (10) Microalbuminuria due to type 2 diabetes mellitus: Code(s): E11.29 - Type 2 diabetes mellitus with other diabetic kidney complication; R80.9 - Proteinuria, unspecified Coding Diagnoses Diabetes 1.5, managed as type 1 E13.9 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
--- NOTE | 2024-02-19 08:47 | A.OFFPC_ITS ---
Intake Visit Reasons: Medication follow up [phone] Allergies raspberry [Raspberry] Allergy (Mild, Verified 02/19/24 08:52) HIVES Medication List - Last Reconciled 02/19/24 by Cara Byers MD albuterol sulfate 90 mcg/actuation (ProAir HFA) 1 inh inhalation QID PRN 30 days amlodipine-benazepril 5-20 mg 1 cap PO DAILY citalopram 40 mg PO DAILY 90 days fluticasone propionate 50 mcg/actuation (Flonase Allergy Relief) 1 spray intranasal BID 30 days gabapentin 300 mg PO TID PRN insulin glargine (Basaglar KwikPen U-100 Insulin) 60 units (0.6 mL) subcut BID lancets (FreeStyle Lancets) As directed lidocaine 5% 1 patch topical DAILY lorazepam 1 mg PO ONCE PRN 90 days nystatin 1 appl topical DAILY PRN omeprazole 20 mg PO DAILY 90 days pen needle, diabetic (Easy Comfort Pen [place]) B.i.d. propranolol ER 60 mg PO DAILY 90 days semaglutide (Ozempic) 1 mg subcut QWEEK simvastatin 40 mg PO BEDTIME 90 days Tobacco use date assessed: 02/19/24 Dental Screening Dental Screen Date: 02/19/24 Did you have a dental visit in the last 12 months?: Yes Did you have a dental problem in the last 6 months where you did not have access to dental care?: No Was dental information given to patient?: Patient has dentist HPI Medication follow up [phone] HPI Details Patient is 53-year-old female this is her regular appointment through telemedicine video Lip lesion: Patient still has not made apt with surgery, she says she will call today Depression: currently she is on citalopram for depression She is also on lorazepam for anxiety, patient is complying with the treatment plan Refills sent for lorazepam for next [address] Painetr endocrinology is managing her diabetes, patient is on Ozempic she had labs done recently her Hba1c is 6.5 now she saw him this month, Note reviewed vitals noted her Bp was 130/74 pulse was 65 regular and pulse Ox was 97 room air BMI 51.02 Complicated migraine headaches: Patient has been taking propranolol for years and is doing well Continue simvastatin Omeprazole for chronic GERD. Blood pressure management through Nephrology Patient also have a diabetic kidney disease with microalbuminuria She will be having labs in her week or so before she sees the Nephrology Morbid obesity, difficulty losing weight Follow-up 3 months total time spent in care of this patient 30 min including face to face, reviewing charts / labs / documenting / meds [facility] Medical History HTN (hypertension) Rash Insulin dependent diabetes mellitus Surgical History Previous section History of back surgery Family History Father No problems noted. Mother HTN (hypertension) Maternal Grandfather Cancer Sister No problems noted. Social History Housing: House Alcohol intake: unknown Patient Tobacco Use Status: Never used Tobacco e-Cigarette/Vaping Use: Never Used service: No Current occupational status: employed Cognitive needs: No Hearing needs: No Vision needs: Yes Questionnaire Thrive Questionnaire Date Thrive assessed: 03/07/23 AUDIT C Alcohol Use Questionnaire (AUDIT-C) 1. How often do you have a drink containing alcohol?: 2-4 times a month 2. How many drinks containing alcohol do you have on a typical day when you are drinking?: 1 or 2 3. How often do you have six or more drinks on one occasion?: Never Total Score: 2 Score Reviewed/Action Taken: Yes SARAH-7 AMB Questionnaire SARAH-7 Date SARAH - 7 assessed: 03/07/23 Source: Developed by Drs. Zaheer Suazo, Silvia Gibbs, Thee Ahmadi and colleagues, with an educational esa from [employer]. Review of Systems Const Denies chills and Denies fever(s) ENT Denies epistaxis and Denies nasal discharge Card Denies chest pain Resp Denies chest congestion, Denies cough and Denies hemoptysis GI Denies diarrhea and Denies nausea Skin/Breast Denies rash Neuro Reports no additional complaints Psych Reports no additional complaints Endo Reports no additional complaints Physical exam (Primary Care) Tobacco/Smoking Status: Tobacco use Status Tobacco use date assessed 02/19/24 02/19/24 08:52 Patient Tobacco Use Status Never used Tobacco 02/19/24 08:51 e-Cigarette/Vaping Use Never Used 02/19/24 08:51 Thrive Assessment: Date of Thrive Assessment Date Thrive assessed 03/07/23 02/19/24 08:51 Telehealth Telehealth Telehealth Platform: [employer] Location of provider rendering services: practice address Location of patient: address on file Patient Identification confirmed using: Name, : Yes Telehealth method: video Patient verbally consented to treatment: Yes Patient verbally consented to billing insurance company: Yes Patient informed of any privacy concerns related to visit: Yes Assessment and Plan Assessment & Plan (1) Diabetes 1.5, managed as type 1: Code(s): E13.9 - Other specified diabetes mellitus without complications (2) retirement (current) use of insulin: Code(s): Z79.4 - retirement (current) use of insulin (3) Diabetic nephropathy with proteinuria: Code(s): E11.21 - Type 2 diabetes mellitus with diabetic nephropathy (4) Depression, major, recurrent: Code(s): F33.9 - Major depressive disorder, recurrent, unspecified Qualifiers: Active/Remission status: in full remission Qualified Code(s): F33.42 - Major depressive disorder, recurrent, in full remission (5) Hypertension, essential: Code(s): I10 - Essential (primary) hypertension (6) Anxiety, generalized: Code(s): F41.1 - Generalized anxiety disorder (7) Lipid disorder: Code(s): E78.9 - Disorder of lipoprotein metabolism, unspecified (8) Chronic GERD: Code(s): K21.9 - Gastro-esophageal reflux disease without esophagitis (9) Headache syndrome: Code(s): G44.89 - Other headache syndrome (10) Microalbuminuria due to type 2 diabetes mellitus: Code(s): E11.29 - Type 2 diabetes mellitus with other diabetic kidney complication; R80.9 - Proteinuria, unspecified (11) Lesion of lip: Code(s): K13.0 - Diseases of lips Plan Patient is 53-year-old female this is her regular appointment through telemedicine video Lip lesion: Patient still has not made apt with surgery, she says she will call today Depression: currently she is on citalopram for depression She is also on lorazepam for anxiety, patient is complying with the treatment plan Refills sent for lorazepam for next [address] 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 Blood pressure management through Nephrology Patient also have a diabetic kidney disease with microalbuminuria She will be having labs in her week or so before she sees the Nephrology Morbid obesity, difficulty losing weight Follow-up 3 months total time spent in care of this patient 30 min including face to face, reviewing charts / labs / documenting / meds Medications: Refilled lorazepam 1 mg PO ONCE 90 days PRN 90 tabs 0RF anxiety F41.1 - Generalized anxiety disorder lorazepam 1 mg PO ONCE PRN 90 tabs 0RF anxiety 90 days F41.1 - Generalized anxiety disorder Coding Level of Care Code Tele Est Pt Level 4 (69272) Complex EM visit Add On G2211 Diagnoses Diabetes 1.5, managed as type 1 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
== END 2024-02-19 16:47 | disposition home or self-care (01) ==
LOC: HO.HMGC 08:14
PROVIDERS: PCP Internal Medicine; Visit Provider Internal Medicine
DX: E11.21 Type 2 diabetes mellitus with diabetic nephropathy (principal); Z79.4 Long term (current) use of insulin; F33.42 Major depressive disorder, recurrent, in full remission; E11.29 Type 2 diabetes mellitus with other diabetic kidney complication; I10 Essential (primary) hypertension; F41.1 Generalized anxiety disorder; E78.9 Disorder of lipoprotein metabolism, unspecified; K21.9 Gastro-esophageal reflux disease without esophagitis; G44.89 Other headache syndrome; R80.9 Proteinuria, unspecified; K13.0 Diseases of lips
CPT/HCPCS: 99214; G2211

== ENCOUNTER → 2024-03-01 07:52 | Outpatient (REF) | payer OTHER, SELFPAY | LOC: HO.SL 07:52 | PROVIDERS: PCP Internal Medicine; Visit Provider Internal Medicine | DX: G47.33 Obstructive sleep apnea (adult) (pediatric) (principal); R40.0 Somnolence | CPT/HCPCS: 95806 ==

== ENCOUNTER → 2024-03-01 08:03 | Outpatient (BNV) | payer OTHER, SELFPAY | PROVIDERS: PCP Internal Medicine; Visit Provider Internal Medicine | DX: G47.33 Obstructive sleep apnea (adult) (pediatric) (principal) | CPT/HCPCS: 95806 ==

== ENCOUNTER → 2024-03-17 19:30 | Outpatient (REF) | payer OTHER, SELFPAY | LOC: HO.SL 19:30 | PROVIDERS: PCP Internal Medicine; Visit Provider Internal Medicine | DX: G47.33 Obstructive sleep apnea (adult) (pediatric) (principal); R06.83 Snoring | CPT/HCPCS: 95811 ==

== ENCOUNTER → 2024-03-17 21:52 | Outpatient (BNV) | payer OTHER, SELFPAY | PROVIDERS: PCP Internal Medicine; Visit Provider Internal Medicine | DX: G47.33 Obstructive sleep apnea (adult) (pediatric) (principal) | CPT/HCPCS: 95811 ==

== ENCOUNTER 2024-04-22 10:44 | Emergency (ER) | payer OTHER, SELFPAY ==
[2024-04-22 10:57] VITALS: BP 167/65; PULSE 69; RESP 18; TEMP 36.9; O2SAT 94; BMI 52.3
[2024-04-22 11:13] LABS: MANUAL DIFF FLAG NO
[2024-04-22 11:14] LABS: Basophils Percent Auto 0.7 % (0-2); Eosinophils Absolute Auto 0.2 X10*3/uL (0.0-0.4); Eosinophils Percent Auto 3.8 % (0-4); Hematocrit 33.1 % (37.0-47.0); Hemoglobin 11.7 g/dl (12.0-16.0); Imm Gran Abs Auto 0.03 X10*3/uL (0.00-0.03); Imm Gran Pct Auto 0.5 % (0.0-0.4); Lymphocytes Absolute Auto 1.1 X10*3/uL (1.2-4.9); Lymphocytes Percent Auto 19.2 % (20-40); Mean Corpuscular HGB Conc 35.3 g/dl (31.0-35.0); Mean Corpuscular Hemoglobin 32.8 pg (27.0-33.0); Mean Corpuscular Volume 92.7 fL (80.0-98.0); Mean Platelet Volume 8.7 fL (9.4-12.3); Monocytes Absolute Auto 0.4 X10*3/uL (0.1-1.2); Monocytes Percent Auto 7.3 % (2-11); Neutrophils Absolute Auto 3.9 x10*3/uL (2.0-8.3); Neutrophils Percent Auto 68.5 % (45-73); Platelet Count 185 X10*3/uL (160-400); Red Blood Count 3.57 X10*6/uL (4.20-5.50); Red Cell Distribution Width 12.6 % (11.0-16.0); White Blood Count 5.7 X10*3/uL (4.8-10.8)
[2024-04-22 11:20] LABS: INTERNATIONAL NORM RATIO 0.9 (0.9-1.1); Prothrombin Time 11.4 SEC (11.1-13.3)
[2024-04-22 11:30] LABS: Anion Gap 15 (12-20); Blood Urea Nitrogen 13 mg/dL (9-16); Calcium 9.6 mg/dL (8.4-10.2); Carbon Dioxide 23 mmol/L (22-29); Chloride 99 mmol/L (96-108); Creatinine Clr Calc Pharmacy 89.3; Estimated Glomerular Filt Rate > 60; Glucose Random 117 mg/dL (60-115); Sodium 132 mmol/L (135-145)
--- NOTE | 2024-04-22 11:34 | PC.NURSE ---
Pt comes from home for noticing bright red blood in her stool since last night. States she had hemorrhoids that would bleed but other than that no hx of blood in her stool. No pain/burning/frequency on urination, has noticed some hematuria when she urinates but is unsure where it's coming from. A/ox4, no increased WOB/SOB noted, lung sounds cta bilaterally, abdomen soft and non-tender, pt states no pain. Labs obtained, call montoya within reach, pt updated on plan for OSX to be obtained, all needs met at this time.
--- NOTE | 2024-04-22 11:55 | ED_ITS ---
HPI - General Adult General Chief complaint: General Medical Stated complaint: rectal bleeding Time Seen by Provider: 04/22/24 11:55 History of Present Illness ED Provider: Edmond العراقي narrative: The patient is a 54-year-old woman who says that last night she had some blood with passage of stool that she thought might be a hemorrhoid. This morning it happened again and she became quite nervous about it. She says the stool itself looked brown and normal. She says that she thought she might have been straining at stool so she had taken a stool softener last night. She has no abdominal pain. No fever, sweats, chills. No vomiting. Related Data Home Medications ?Medication ?Instructions ?Recorded ?Confirmed lancets 28 gauge (FreeStyle #100 ea 06/26/20 02/19/24 Lancets) semaglutide 1 mg/dose (4 mg/3 mL) 1 mg subcut QWEEK 03/12/22 02/19/24 subcutaneous pen injector (Ozempic) gabapentin 300 mg capsule 300 mg PO TID PRN 01/08/24 02/19/24 nystatin 100,000 unit/gram topical 1 appl topical DAILY PRN 01/08/24 02/19/24 powder Previous Rx's ?Medication ?Instructions ?Recorded pen needle, diabetic 32 gauge x #100 ea 10/31/20 (Easy Comfort Pen Avant) insulin glargine 100 unit/mL (3 60 unit (0.6 mL) subcut BID #15 mL 08/16/22 mL) subcutaneous pen (Basaglar KwikPen U-100 Insulin) albuterol sulfate 90 mcg/actuation 1 inh inhalation QID PRN shortness 01/03/23 aerosol inhaler (ProAir HFA) of breath or wheezing 30 days #18 grams fluticasone propionate 50 1 spray intranasal BID 30 days #16 04/18/23 mcg/actuation nasal grams spray,suspension (Flonase Allergy Relief) lidocaine 5 % topical patch 1 patch topical DAILY #30 ea 05/29/23 simvastatin 40 mg tablet 40 mg PO BEDTIME 90 days #90 tabs 06/18/23 omeprazole 20 mg capsule,delayed 20 mg PO DAILY 90 days #90 caps 11/19/23 release propranolol 60 mg capsule,24 60 mg PO DAILY 90 days #90 caps 12/04/23 hr,extended release citalopram 40 mg tablet 40 mg PO DAILY 90 days #90 tabs 01/07/24 lorazepam 1 mg tablet 1 mg PO ONCE PRN anxiety 90 days 02/19/24 #90 tabs amlodipine 5 mg-benazepril 20 mg 1 cap PO DAILY #90 caps 03/03/24 capsule CPAP machine #1 ea 03/29/24 amoxicillin 875 mg-potassium 1 tab PO BID 10 days #20 tabs 04/05/24 clavulanate 125 mg tablet Allergies Allergy/AdvReac Type Severity Reaction Status Date / Time raspberry [Raspberry] Allergy Mild HIVES Verified 04/22/24 10:59 Review of Systems 2 Review of Systems: Yes all other systems are reviewed and are negative [facility] Past Medical History Medical History HTN (hypertension) Rash Insulin dependent diabetes mellitus Surgical History Previous section History of back surgery Family History Family History Father No problems noted. Mother HTN (hypertension) Maternal Grandfather Cancer Sister No problems noted. Social History Social History Housing: House Alcohol intake: unknown Patient Tobacco Use Status: Never used Tobacco e-Cigarette/Vaping Use: Never Used Advance Directives: No Advance Directives Information Provided: Yes Do you have a plan to hurt others: No Plan service: No Current occupational status: employed Cognitive needs: No Hearing needs: No Vision needs: Yes Physical Exam ED Vital Signs: Vital Signs - 24 hr 04/22/24 12:58 Temperature 98.2 F Pulse Rate 68 Respiratory Rate 18 Blood Pressure 171/70 H Pulse Oximetry 95 Oxygen Delivery Method Room Air BMI result Body Mass Index 52.3 Const Other: The patient is a 54-year-old woman who is awake, alert, pleasant, cooperative. She does not appear in any distress. She does not appear acutely ill. HENMT Other: Face is symmetrical. Mucous membranes moist. Face and sinus: Yes normal facial exam Mouth: Normal oral and palatal mucosa present and moist mucous membranes Eyes General: appearance normal, both eyes and all related structures Neck Neck: Yes full ROM Resp Effort & Inspection: normal respiratory effort Auscultation: clear to auscultation bilaterally Cardio Rate: regular rate Rhythm: regular rhythm Heart sounds: S1 normal heart sound present and S2 normal heart sound present GI Other: Has been is soft and nontender. Rectal exam: There were some small flecks of bright red blood externally in the perianal area. There are some very small chronic signs of old hemorrhoids at the anus itself. Rectal tone was normal. There was pale brown stool in the rectal vault. There was no blood associated with the stool. Skin Other: Skin is dry and unremarkable Neuro Other: The patient is awake, alert, pleasant, cooperative. Cranial nerves are grossly intact. She moves all extremities normally. Extrem Other: No pitting edema Medical Decision Making Medical Decision Making MDM Narrative: The patient is a 54-year-old woman who presents for evaluation of bright red blood per rectum starting last night. Clinically the patient looks well. She has a slight drop in her hemoglobin from when last checked 2 months ago. Her hemoglobin today is 11.7. It was 12.1 on February 11. On exam there is no blood in the rectal vault. The stool in the rectal vault is clearly non melenic. It is pale brown. There were some flecks of bright red blood in the perianal area externally. I suspect the patient is having hemorrhoidal bleeding. She reports having firm stools recently. She will be advised to start taking psyllium regularly. She has never had a colonoscopy although she is 54. She should contact her PCP and her operator receptionist to arrange outpatient referral for colonoscopy. She should return if worse. Lab Data 04/22/24 11:06 04/22/24 11:06 Labs: Lab Results 04/22/24 Range/Units 11:06 WBC 5.7 (4.8-10.8) X10*3/uL RBC 3.57 L (4.20-5.50) X10*6/uL Hgb 11.7 L (12.0-16.0) g/dl Hct 33.1 L (37.0-47.0) % MCV 92.7 (80.0-98.0) fL MCH 32.8 (27.0-33.0) pg MCHC 35.3 H (31.0-35.0) g/dl RDW 12.6 (11.0-16.0) % Plt Count 185 (160-400) X10*3/uL MPV 8.7 L (9.4-12.3) fL Immature Gran % (Auto) 0.5 H (0.0-0.4) % Neut % (Auto) 68.5 (45-73) % Lymph % (Auto) 19.2 L (20-40) % Price % (Auto) 7.3 (2-11) % Eos % (Auto) 3.8 (0-4) % Baso % (Auto) 0.7 (0-2) % Lymph # (Auto) 1.1 L (1.2-4.9) X10*3/uL Price # (Auto) 0.4 (0.1-1.2) X10*3/uL Eos # (Auto) 0.2 (0.0-0.4) X10*3/uL Baso # (Auto) 0.0 (0.0-0.2) X10*3/uL Abs Immat Gran (auto) 0.03 (0.00-0.03) X10*3/uL Absolute Neuts (auto) 3.9 (2.0-8.3) x10*3/uL Absolute Nucleated RBC 0.000 (0.0-0.012) X10*3/uL Nucleated RBC % (auto) 0.0 (0.0-0.2) /100WBC PT 11.4 (11.1-13.3) SEC INR 0.9 (0.9-1.1) Sodium 132 L (135-145) mmol/L Potassium 5.0 (3.3-5.1) mmol/L Chloride 99 (96-108) mmol/L Carbon Dioxide 23 (22-29) mmol/L Anion Gap 15 (12-20) BUN 13 (9-16) mg/dL Creatinine 0.92 (0.5-1.4) mg/dL Estim Creat Clear Calc 89.3 Estimated GFR > 60 Random Glucose 117 H (60-115) mg/dL Calcium 9.6 (8.4-10.2) mg/dL Blood Type O Positive Antibody Screen NEGATIVE Discharge Plan Discharge Clinical Impression: Bright red blood per rectum Patient Disposition: Home, Self-Care Instructions: Hemorrhoids (ED), Rectal Bleeding (ED) Additional Instructions: I suspect that the bleeding you have been experiencing is coming from a hemorrhoid problem. I would recommend using psyllium (brand name Metamucil) to increase fiber in your diet and soften your stools. Take this daily. Also contact your regular doctor's office to arrange a colonoscopy since you are due for a colonoscopy in any event. Your blood type is O positive. Return to the emergency room if worse. Prescriptions: No Action (DME) lancets [FreeStyle Lancets] 28 gauge misc See Rx Instructions .ROUTE .MEDSUPPLY Qty: 100 Rx Instructions: As directed (DME) pen needle, diabetic [Easy Comfort Pen Avant] 32 gauge x 5/32 needle See Rx Instructions .ROUTE .MEDSUPPLY Qty: 100 3RF Rx Instructions: B.i.d. insulin glargine [Basaglar KwikPen U-100 Insulin] 100 unit/mL (3 mL) insulin pen 60 unit subcut BID Qty: 15 0RF albuterol sulfate [ProAir HFA] 90 mcg/actuation HFA aerosol inhaler 1 inh inhalation QID PRN (Reason: shortness of breath or wheezing) 30 Days Qty: 18 5RF fluticasone propionate [Flonase Allergy Relief] 50 mcg/actuation spray,suspension 1 spray intranasal BID 30 Days Qty: 16 5RF Rx Instructions: administer into each nostril lidocaine 5 % adhesive patch,medicated 1 patch topical DAILY Qty: 30 11RF Rx Instructions: leave on most painful area for up to 12 hrs omeprazole 20 mg capsule,delayed release(DR/EC) 20 mg PO DAILY 90 Days Qty: 90 3RF citalopram 40 mg tablet 40 mg PO DAILY 90 Days Qty: 90 0RF lorazepam 1 mg tablet 1 mg PO ONCE PRN (Reason: anxiety) 90 Days Qty: 90 0RF amlodipine-benazepril 5-20 mg capsule 1 cap PO DAILY Qty: 90 1RF (DME) CPAP machine See Rx Instructions .Route .MEDSUPPLY Qty: 1 0RF Rx Instructions: Full face mask F 20 with pressure setting 18/12 cm H2O. Please provide bi-level devise 18/12 cm H2O resmed aircurve 2 V auto. amoxicillin-pot clavulanate 875-125 mg tablet 1 tab PO BID 10 Days Qty: 20 0RF Ozempic 1 mg/dose (4 mg/3 mL) pen injector 1 mg subcut QWEEK simvastatin 40 mg tablet 40 mg PO BEDTIME 90 Days Qty: 90 3RF propranolol 60 mg capsule,extended release 24 hr 60 mg PO DAILY 90 Days Qty: 90 3RF gabapentin 300 mg capsule 300 mg PO TID PRN nystatin 100,000 unit/gram powder 1 appl topical DAILY PRN Referrals: Cara Byers MD [Primary Care Provider] - (Hemorrhoidal bleeding, need for colonoscopy) Interventions: ED Discharge Assessment Last Done: 04/22/24 12:58 Discharge Date/Time: 04/22/24 12:58 Print Language: Irish
[2024-04-22 12:08] VITALS: BP 171/70; PULSE 68; RESP 18; TEMP 36.8; O2SAT 95
[2024-04-22 12:58] VITALS: BP 171/70; PULSE 68; RESP 18; TEMP 36.8; O2SAT 95
== END 2024-04-22 12:58 | disposition home or self-care (01) ==
PROVIDERS: Physician Assistant Medical; Emergency Provider Emergency Medicine; PCP Internal Medicine
DX: K62.5 Hemorrhage of anus and rectum (principal); I10 Essential (primary) hypertension; E11.9 Type 2 diabetes mellitus without complications; Z79.4 Long term (current) use of insulin
CPT/HCPCS: 36415; 80048; 85025; 85610; 86850; 86900; 86901; 99283; 99284

== ENCOUNTER 2024-05-06 08:12 | Outpatient (AMB) | payer OTHER, SELFPAY ==
--- NOTE | 2024-05-06 08:12 | A.OFFPC_ITS ---
Intake Visit Reasons: Medication follow [id number] Allergies raspberry [Raspberry] Allergy (Mild, Verified 05/06/24 08:13) HIVES Medication List - Last Reconciled 05/06/24 by Cara Byers MD albuterol sulfate 90 mcg/actuation (ProAir HFA) 1 inh inhalation QID PRN 30 days amlodipine-benazepril 5-20 mg 1 cap PO DAILY citalopram 40 mg PO DAILY 90 days [CPAP machine Full face mask F 20 with pressure setting 18/12 cm H2O. Please provide bi-level devise 18/12 cm H2O resmed aircurve 2 V auto.] fluticasone propionate 50 mcg/actuation (Flonase Allergy Relief) 1 spray intranasal BID 30 days gabapentin 300 mg PO TID insulin glargine (Basaglar KwikPen U-100 Insulin) 60 units (0.6 mL) subcut BID lancets (FreeStyle Lancets) As directed lidocaine 5% 1 patch topical DAILY lorazepam 1 mg PO ONCE PRN 90 days nystatin 1 appl topical DAILY PRN omeprazole 20 mg PO DAILY 90 days pen needle, diabetic (Easy Comfort Pen [place]) B.i.d. propranolol ER 60 mg PO DAILY 90 days semaglutide (Ozempic) 1 mg subcut QWEEK simvastatin 40 mg PO BEDTIME 90 days Tobacco use date assessed: 05/06/24 Dental Screening Dental Screen Date: 05/06/24 Did you have a dental visit in the last 12 months?: No Did you have a dental problem in the last 6 months where you did not have access to dental care?: No Was dental information given to patient?: Patient has dentist HPI Medication follow Up/[id number] HPI Details Patient is 54-year-old female this is her regular appointment through telemedicine video she is on Cpap machine, now and is sleeping better, not tired during the day c/o burning sensation left upper thigh for past 24 hours at certain leg position Lip lesion: Patient still has not made apt with surgery, she says she will call today [ that is what she said last time as well ] Depression: currently she is on citalopram for depression, refil sent She is also on lorazepam for anxiety, patient is complying with the treatment plan Refills sent for lorazepam for next [address] 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 Blood pressure management through Nephrology Patient have a diabetic kidney disease with microalbuminuria Follow-up 3 months [facility] Medical History HTN (hypertension) Rash Insulin dependent diabetes mellitus Surgical History Previous section History of back surgery Family History Father No problems noted. Mother HTN (hypertension) Maternal Grandfather Cancer Sister No problems noted. Social History Housing: House Alcohol intake: unknown Patient Tobacco Use Status: Never used Tobacco e-Cigarette/Vaping Use: Never Used service: No Current occupational status: employed Cognitive needs: No Hearing needs: No Vision needs: Yes Questionnaire Thrive Questionnaire Date Thrive assessed: 03/07/23 AUDIT C Alcohol Use Questionnaire (AUDIT-C) 1. How often do you have a drink containing alcohol?: Never 3. How often do you have six or more drinks on one occasion?: Never Total Score: 0 Score Reviewed/Action Taken: Yes SARAH-7 AMB Questionnaire SARAH-7 Date SARAH - 7 assessed: 03/07/23 Source: Developed by Drs. Zaheer Suazo, Silvia Gibbs, Thee Ahmadi and colleagues, with an educational esa from [employer]. Review of Systems Const Denies chills and Denies fever(s) ENT Denies epistaxis and Denies nasal discharge Card Denies chest pain Resp Denies chest congestion, Denies cough and Denies hemoptysis GI Denies diarrhea and Denies nausea Skin/Breast Denies rash Neuro Reports no additional complaints Psych Reports no additional complaints Endo Reports no additional complaints Physical exam (Primary Care) Tobacco/Smoking Status: Tobacco use Status Tobacco use date assessed 05/06/24 05/06/24 08:14 Patient Tobacco Use Status Never used Tobacco 05/06/24 08:14 e-Cigarette/Vaping Use Never Used 05/06/24 08:14 Thrive Assessment: Date of Thrive Assessment Date Thrive assessed 03/07/23 05/06/24 08:14 Telehealth Telehealth Telehealth Platform: [employer] Location of provider rendering services: practice address Location of patient: address on file Patient Identification confirmed using: Name, : Yes Telehealth method: video Patient verbally consented to treatment: Yes Patient verbally consented to billing insurance company: Yes Patient informed of any privacy concerns related to visit: Yes Assessment and Plan Assessment & Plan (1) Diabetes 1.5, managed as type 1: Code(s): E13.9 - Other specified diabetes mellitus without complications (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: Code(s): Z79.4 - retirement (current) use of insulin (3) Diabetic nephropathy with proteinuria: Code(s): E11.21 - Type 2 diabetes mellitus with diabetic nephropathy (4) Depression, major, recurrent: Code(s): F33.9 - Major depressive disorder, recurrent, unspecified Qualifiers: Active/Remission status: in full remission Qualified Code(s): F33.42 - Major depressive disorder, recurrent, in full remission (5) Hypertension, essential: Code(s): I10 - Essential (primary) hypertension (6) Anxiety, generalized: Code(s): F41.1 - Generalized anxiety disorder (7) Lipid disorder: Code(s): E78.9 - Disorder of lipoprotein metabolism, unspecified (8) Chronic GERD: Code(s): K21.9 - Gastro-esophageal reflux disease without esophagitis (9) Headache syndrome: Code(s): G44.89 - Other headache syndrome (10) Microalbuminuria due to type 2 diabetes mellitus: Code(s): E11.29 - Type 2 diabetes mellitus with other diabetic kidney complication; R80.9 - Proteinuria, unspecified (11) Lesion of lip: Code(s): K13.0 - Diseases of lips Plan Patient is 54-year-old female this is her regular appointment through telemedicine video she is on Cpap machine, now and is sleeping better, not tired during the day c/o burning sensation left upper thigh for past 24 hours at certain leg position Lip lesion: Patient still has not made apt with surgery, she says she will call today [ that is what she said last time as well ] Depression: currently she is on citalopram for depression, refil sent She is also on lorazepam for anxiety, patient is complying with the treatment plan Refills sent for lorazepam for next [address] 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 Blood pressure management through Nephrology Patient have a diabetic kidney disease with microalbuminuria Follow-up 3 months Medications: Refilled lorazepam 1 mg PO ONCE 90 days PRN 90 tabs 0RF anxiety F41.1 - Generalized anxiety disorder citalopram 40 mg PO DAILY 90 days 90 tabs 0RF Coding Level of Care Code Tele Est Pt Level 3 (84492) Diagnoses Diabetes 1.5, managed as type 1 E13.9 retirement (current) use of insulin Z79.4 Diabetic nephropathy with proteinuria E11.21 Recurrent major depressive disorder, in full remission F33.42 Active/Remission status: in full remission Hypertension, essential I10 Anxiety, generalized F41.1 Lipid disorder E78.9 Chronic GERD K21.9 Headache syndrome G44.89 Microalbuminuria due to type 2 diabetes mellitus E11.29; R80.9 Lesion of lip K13.0
== END 2024-05-06 09:13 | disposition home or self-care (01) ==
LOC: HO.HMGC 08:12
PROVIDERS: PCP Internal Medicine; Visit Provider Internal Medicine
DX: E11.21 Type 2 diabetes mellitus with diabetic nephropathy (principal); Z79.4 Long term (current) use of insulin; F33.42 Major depressive disorder, recurrent, in full remission; I10 Essential (primary) hypertension; F41.1 Generalized anxiety disorder; E78.9 Disorder of lipoprotein metabolism, unspecified; K21.9 Gastro-esophageal reflux disease without esophagitis; G44.89 Other headache syndrome; E11.29 Type 2 diabetes mellitus with other diabetic kidney complication; R80.9 Proteinuria, unspecified; K13.0 Diseases of lips
CPT/HCPCS: 99213

== ENCOUNTER 2024-05-12 09:20 | Outpatient (AMB) | payer OTHER, SELFPAY ==
[2024-05-12 09:21] VITALS: BP 142/80; PULSE 76; O2SAT 96; BMI 52.2
--- NOTE | 2024-05-12 09:21 | A.OFFPC_ITS ---
Vital Signs 3 05/12/24 09:21 Height 5 ft 2 in Weight 285 lb 4 oz BMI 52.2 BP 142/80 H Blood Pressure Location Rt brachial Position Sitting Pulse 76 Pulse Source Pulse Oximeter Pulse Oximetry (%) 96 Oxygen Delivery Method Room Air Intake Visit Reasons: ? of shingles Allergies raspberry [Raspberry] Allergy (Mild, Verified 05/12/24 09:22) HIVES Medication List - Last Reconciled 05/12/24 by Cara Byers MD albuterol sulfate 90 mcg/actuation (ProAir HFA) 1 inh inhalation QID PRN 30 days amlodipine-benazepril 5-20 mg 1 cap PO DAILY citalopram 40 mg PO DAILY 90 days [CPAP machine Full face mask F 20 with pressure setting 18/12 cm H2O. Please provide bi-level devise 18/12 cm H2O resmed aircurve 2 V auto.] fluticasone propionate 50 mcg/actuation (Flonase Allergy Relief) 1 spray intranasal BID 30 days gabapentin 300 mg PO TID insulin glargine (Basaglar KwikPen U-100 Insulin) 60 units (0.6 mL) subcut BID lancets (FreeStyle Lancets) As directed lidocaine 5% 1 patch topical DAILY lorazepam 1 mg PO ONCE PRN 90 days nystatin 1 appl topical DAILY PRN omeprazole 20 mg PO DAILY 90 days pen needle, diabetic (Easy Comfort Pen [place]) B.i.d. propranolol ER 60 mg PO DAILY 90 days semaglutide (Ozempic) 1 mg subcut QWEEK simvastatin 40 mg PO BEDTIME 90 days Tobacco use date assessed: 05/12/24 Dental Screening Dental Screen Date: 05/12/24 Did you have a dental visit in the last 12 months?: Yes Did you have a dental problem in the last 6 months where you did not have access to dental care?: No Was dental information given to patient?: Patient has dentist HPI ? of shingles 2 HPI0 Details Patient is a 54-year-old female came in today to be evaluated for pain left lateral upper leg Patient fell in her kitchen 2 weeks ago, and since then she has been having pain in that area Patient was concerned that she has developed shingles There is no rash however she has ecchymosis in that area Patient says that it feels sore and feels like burning She was reassured that over next few days it should get better. [facility] Medical History HTN (hypertension) Rash Insulin dependent diabetes mellitus Surgical History Previous section History of back surgery Family History Father No problems noted. Mother HTN (hypertension) Maternal Grandfather Cancer Sister No problems noted. Social History Housing: House Alcohol intake: unknown Patient Tobacco Use Status: Never used Tobacco e-Cigarette/Vaping Use: Never Used service: No Current occupational status: employed Cognitive needs: No Hearing needs: No Vision needs: Yes Questionnaire PHQ-9 Over the last 2 weeks, how often have you been bothered by any of the following problems? 1. Little interest or pleasure in doing things: not at all 2. Feeling down, depressed, or hopeless: not at all 3. Trouble falling or staying asleep, or sleeping too much: not at all 4. Feeling tired or having little energy: not at all 5. Poor appetite or overeating: not at all 6. Feeling bad about yourself - or that you are a failure or have let yourself or your family down: not at all 7. Trouble concentrating on things, such as reading the newspaper or watching television: not at all 8. Moving or speaking so slowly that other people could have noticed. Or the opposite - being so fidgety or restless that you have been moving around a lot more than usual: not at all 9. Thoughts that you would be better off or of hurting yourself in some way: not at all Total score: 0 Depression Screening Interpretation: Negative Depression Screening Done: Yes 08438 - PHQ-9 Billing: Yes Source: Developed by Drs. Zaheer Suazo, Silvia Gibbs, Thee Ahmadi and colleagues, with an educational esa from [employer]. Thrive Questionnaire Date Thrive assessed: 05/12/24 I am a: Patient What is your living situation today?: I have a steady place to live Within the past 12 months, did the food you bought not last and you didn't have the money to get more?: Never true Within the past 12 months, did you worry whether your food would run out before you got money to buy more?: Never true Do you have trouble paying for medicines?: No Do you have trouble getting transportation to medical appointments?: No Do you have trouble paying your heating and electricity bill?: No Do you have trouble taking care of your child, family member or friend?: No Do you have trouble with day-to-day activities such as bathing, preparing meals, shopping, managing finances, etc.?: No Are you currently unemployed and looking for a job?: No Are you interested in more education?: No Please select the resources that you would like help with: None Currently or been in a relationship where the following occur: No concerns reported THRIVE Score: 0 AUDIT C Alcohol Use Questionnaire (AUDIT-C) 1. How often do you have a drink containing alcohol?: Monthly or less 2. How many drinks containing alcohol do you have on a typical day when you are drinking?: 1 or 2 3. How often do you have six or more drinks on one occasion?: Never Total Score: 1 Score Reviewed/Action Taken: Yes SARAH-7 AMB Questionnaire SARAH-7 Date SARAH - 7 assessed: 05/12/24 Feeling nervous, anxious, or on edge: 0 = Not at all Not being able to stop or control worryin = Not at all Worrying too much about different things: 0 = Not at all Trouble relaxin = Not at all Being so restless that it is hard to sit still: 0 = Not at all Becoming easily annoyed or irritable: 0 = Not at all Feeling afraid as if something awful might happen: 0 = Not at all Total SARAH-7 score (0-4 normal; 5-9 mild; 10-14 moderate; 15-21 severe): 0 Source: Developed by Drs. Zaheer Suazo, Silvia Gibbs, Thee Ahmadi and colleagues, with an educational esa from [employer]. SARAH-7 Assessment Billing SARAH-7 Assessment Tool: SARAH-7 Assessment 54354 Review of Systems Const All systems reviewed & are unremarkable except as noted in HPI and below Physical exam (Primary Care) Vital Signs: Last Vital Signs Pulse 76 05/12/24 09:21 BP 142/80 H 05/12/24 09:21 Pulse Ox 96 05/12/24 09:21 Oxygen Delivery Method Room Air 05/12/24 09:21 BMI result Body Mass Index 52.2 Tobacco/Smoking Status: Tobacco use Status Tobacco use date assessed 05/12/24 05/12/24 09:25 Patient Tobacco Use Status Never used Tobacco 05/12/24 09:25 e-Cigarette/Vaping Use Never Used 05/12/24 09:25 PHQ-9: PHQ-9 Score PHQ-9: Total score 0 05/12/24 09:25 Depression Screening Interpretation: Negative Thrive Assessment: Date of Thrive Assessment Date Thrive assessed 05/12/24 05/12/24 09:25 Currently or been in a relationship where the following occur: No concerns reported Const General: no acute distress Orientation/consciousness: patient oriented x3 Eyes General: appearance normal, both eyes and all related structures Resp Effort & Inspection: normal respiratory effort and able to speak in complete sentences Neuro General: patient oriented x3 Extrem Upper/lower leg/hip images: 2 1. Superficial ecchymosis, that is where she is having pain Psych Mental Status: mental status grossly normal Assessment and Plan Assessment & Plan (1) Traumatic ecchymosis of left thigh: Code(s): S70.12XA - Contusion of left thigh, initial encounter Qualifiers: Encounter type: initial encounter Qualified Code(s): S70.12XA - Contusion of left thigh, initial encounter Plan Patient is a 54-year-old female came in today to be evaluated for pain left lateral upper leg Patient fell in her kitchen 2 weeks ago, and since then she has been having pain in that area Patient was concerned that she has developed shingles There is no rash however she has ecchymosis in that area Patient says that it feels sore and feels like burning She was reassured that over next few days it should get better. Coding Level of Care Code Est Pt Level 3 (41930) Diagnoses Traumatic ecchymosis of left thigh, initial encounter S70.12XA Encounter type: initial encounter Additional Codes SARAH-7 Assessment Billing - SARAH-7 Assessment Tool: SARAH-7 Assessment 94005 ([id number])
== END 2024-05-12 09:35 | disposition home or self-care (01) ==
PROVIDERS: PCP Internal Medicine; Visit Provider Internal Medicine
DX: S70.12XA Contusion of left thigh, initial encounter (principal)
CPT/HCPCS: 99213

== ENCOUNTER 2024-06-03 09:17 | Outpatient (AMB) | payer OTHER, SELFPAY ==
[2024-06-03 09:29] VITALS: BP 130/70; PULSE 67; O2SAT 96; BMI 51.6
--- NOTE | 2024-06-03 09:29 | A.OFFVIS_ITS ---
Vital Signs 06/03/24 09:29 Height 5 ft 2 in Weight 282 lb 3.067 oz BMI 51.6 BP 130/70 Blood Pressure Location Lt brachial Position Sitting Pulse 67 Pulse Source Pulse Oximeter Pulse Oximetry (%) 96 Oxygen Delivery Method Room Air Intake Visit Reasons: sleep apnea Intake Note: pt is here for as a new patient for BRENDA, pt started on bi-pap. she is feeling pretty good, the mask is not her favorite. full face over the nose mask. Damper Maker Required: No Allergies raspberry [Raspberry] Allergy (Mild, Verified 06/03/24 09:59) HIVES Medication List - Last Reconciled 06/03/24 by José Miguel Francisco MD albuterol sulfate 90 mcg/actuation (ProAir HFA) 1 inh inhalation QID PRN 30 days amlodipine-benazepril 5-20 mg 1 cap PO DAILY citalopram 40 mg PO DAILY 90 days [CPAP machine Full face mask F 20 with pressure setting 18/12 cm H2O. Please provide bi-level devise 18/12 cm H2O resmed aircurve 2 V auto.] fluticasone propionate 50 mcg/actuation (Flonase Allergy Relief) 1 spray intranasal BID 30 days gabapentin 300 mg PO TID insulin glargine (Basaglar KwikPen U-100 Insulin) 60 units (0.6 mL) subcut BID lancets (FreeStyle Lancets) As directed lidocaine 5% 1 patch topical DAILY lorazepam 1 mg PO ONCE PRN 90 days nystatin 1 appl topical DAILY PRN omeprazole 20 mg PO DAILY 90 days pen needle, diabetic (Easy Comfort Pen [place]) B.i.d. 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 She has been grossly overweight for the past many years. She does have associated hypertension, diabetes mellitus, GERD symptoms, hyperlipidemia. She has history of snoring and frequent gasping like episodes at night for many years. For the past few years she was experiencing daytime somnolence and fatigue. She underwent home-based sleep study on 03/01/2024 and which showed presence of severe obstructive sleep apnea along with significant nocturnal hypoxemia. Then she had CPAP titration performed in the sleep lab on 03/23/24. The titration was difficult and finally she had to be on bilevel pressure of 18/12 cm to control most of the obstructive events, there was still slight nocturnal hypoxemia. After about she was started on BiPAP treatment, using fullface mask. She has been very compliant and definitely feeling better. However continue to have some discomfort with the fullface mask , with air leak and discomfort over the nasal bridge. The compliance report shows that to she still has some residual sleep apnea with AHI of 11.5 and definitely the air leak is noted. Patient has been started on Ozempic therapy and she is starting to lose weight. [facility] Medical History (Updated 06/03/24 @ 10:17 by José Miguel Francisco MD) Difficulty using continuous positive airway pressure (CPAP) full face mask Nocturnal hypoxemia BRENDA treated with BiPAP Morbid obesity HTN (hypertension) Rash Insulin dependent diabetes mellitus Surgical History Previous section History of back surgery Family History Father No problems noted. Mother HTN (hypertension) Maternal Grandfather Cancer Sister No problems noted. Social History Housing: House Alcohol intake: unknown Patient Tobacco Use Status: Never used Tobacco e-Cigarette/Vaping Use: Never Used service: No Current occupational status: employed Cognitive needs: No Hearing needs: No Vision needs: Yes Review of Systems Const All systems reviewed & are unremarkable except as noted in HPI and below Reports snoring Eyes Reports no additional complaints ENT Reports nasal congestion (Mild off and on) Card Denies chest pain, Denies irregular heart rhythm and Denies leg edema Resp Reports as per HPI, Denies cough, Denies excessive phlegm production, Reports snoring and Denies wheezing GI Reports heartburn (GERD symptoms controlled with medicine) Reports no additional complaints Musc Reports no additional complaints Skin/Breast Reports system reviewed and no additional complaints, except as documented Neuro Reports no additional complaints Psych Reports no additional complaints Endo Reports other (Diabetes mellitus) Matt/Lymph Reports no additional complaints Aller/Immun Reports no additional complaints and Denies wheezing Physical Exam Const General: healthy appearing (Except for being overweight), comfortable, no acute distress, alert and awake Orientation/consciousness: patient oriented x3 HEENT Head: Yes normal to inspection General nose exam: No nasal polyps present and No nasal discharge present Face and sinus: Yes sinuses nontender Mouth: oropharynx normal Throat: Yes posterior oropharynx normal Eyes General: appearance normal, both eyes and all related structures Neck Neck: Yes normal visual inspection, Yes no lymphadenopathy, Yes trachea midline and Yes no JVD Thyroid: Thyroid normal Chest Chest palpation & inspection: normal inspection of the chest, normal palpation of entire chest wall and no tenderness Resp Other: Percussion note not perceptible because of obese chest wall Breath sounds are diminished over the basilar areas. No wheezes or rhonchi or crepitations are heard Cardio Palpation: normal PMI Rate: regular rate Rhythm: regular rhythm Heart sounds: no gallops and no murmurs Peripheral pulses: Peripheral pulses 2+ throughout GI Palpation (GI): Soft to palpation, Tenderness to palpation present (GI), No hepatosplenomegaly present, Palpable mass present and Other GI palpation findings present Auscultation: normal bowel sounds Back/Spine/Pelvis Thoracic/Lumbar Spine: thoracic and lumbar spine normal to inspection and thoraco-lumbar ROM limited Skin General skin exam: no rashes or lesions noted Neuro General: patient oriented x3 and no focal motor deficits Cranial nerves: Yes CN's II-XII intact bilaterally Extrem General: Yes normal to inspection, Yes no clubbing, cyanosis or edema and Yes no calf tenderness Psych Appearance: grossly normal and well kempt Speech and movement: Normal speech and movement present Results Reviewed Results Reviewed: Home-based sleep study on 03/01/2024 shows total sleep time AHI 31 in supine position 120 O2 sat throughout the night was 86% CPAP titration in the sleep lab was recommended. CPAP titration study on 03/23 performed. She needed bilevel pressure of 18 /12 cm to overcome the obstructive events, the O2 sats were still relatively low. Patient has been provided with BiPAP device, and she is using very regularly every night sleeping much better. The compliance report shows the following usage 30/30 nights, 100%. Average usage per night is 6 hours 25 minutes there is the air leak maximum 74.6 L/minute. Residual AHI is still 11.5 Assessment & Plan Assessment & Plan (1) Morbid obesity: Comment: BMI=51.6 Code(s): E66.01 - Morbid (severe) obesity due to excess calories Category: Medical Plan: PATIENT IS ON WEIGHT REDUCTION THERAPY, AND DETERMINED TO LOSE WEIGHT. (2) BRENDA treated with BiPAP: Comment: HAS SEVERE OBSTRUCTIVE SLEEP APNEA WITH NOCTURNAL HYPOXEMIA. SUBJECTIVELY MUCH IMPROVED WITH THE USE OF BIPAP, HAS THE DISCOMFORT WITH THE CURRENT FULLFACE MASK, AND THERE IS SOME AIR LEAK. SHE IS VERY COMPLIANT AND USING THE BIPAP, AND DEFINITELY BENEFITING. Code(s): G47.33 - Obstructive sleep apnea (adult) (pediatric) Category: Medical Plan: ADVISED TO CONTINUE USING BIPAP, WITH CURRENT PRESSURE SETTING. BUT WE WILL REFER HER FOR MASK FITTING, SHE MAY BENEFIT WITH DREAMWEAR FULLFACE MASK. (3) Nocturnal hypoxemia: Comment: THE NOCTURNAL HYPOXEMIA WAS NOT COMPLETELY RESOLVED BUT DEFINITELY IMPROVED WITH THE USE OF BIPAP Code(s): G47.34 - Idiopathic sleep related nonobstructive alveolar hypoventilation Category: Medical Plan: ONCE SHE STARTS USING THE BIPAP REGULARLY AND HAS NO AIR LEAK HER DISCOMFORT, WE WOULD MAKE ARRANGEMENT FOR HER TO HAVE OVERNIGHT OXIMETRY RECORDING. (4) Difficulty using continuous positive airway pressure (CPAP) full face mask: Comment: MASK DIFFICULTY IS DUE TO DISCOMFORT OVER THE NASAL BRIDGE. AND THERE IS AIR LEAK ISSUE. Code(s): Z78.9 - Other specified health status Category: Medical Plan: REFERRED TO HER DME PROVIDER, VIOLA, FOR BETTER MASK FITTING. PATIENT WAS EDUCATED ABOUT DIFFERENT TYPE OF MASKS. Coding Level of Care Code New Pt Level 3 (21042) Diagnoses Morbid obesity E66.01 BRENDA treated with BiPAP G47.33 Nocturnal hypoxemia G47.34 Difficulty using continuous positive airway pressure (CPAP) full face mask Z78.9
== END 2024-06-03 10:06 | disposition home or self-care (01) ==
PROVIDERS: PCP Internal Medicine; Visit Provider Internal Medicine
DX: G47.33 Obstructive sleep apnea (adult) (pediatric) (principal); G47.34 Idiopathic sleep related nonobstructive alveolar hypoventilation; E66.01 Morbid (severe) obesity due to excess calories; Z68.43 Body mass index [BMI] 50.0-59.9, adult
CPT/HCPCS: 99213

== ENCOUNTER → 2024-06-03 09:17 | Outpatient (BNVA) | payer OTHER, SELFPAY | PROVIDERS: PCP Internal Medicine; Visit Provider Internal Medicine ==

== ENCOUNTER → 2024-07-08 08:48 | Outpatient (BNVA) | payer OTHER, SELFPAY | PROVIDERS: PCP Internal Medicine; Visit Provider Internal Medicine ==

== ENCOUNTER 2024-07-23 08:03 | Outpatient (AMB) | payer OTHER, SELFPAY ==
[2024-07-23 08:10] VITALS: BP 124/86; PULSE 84; TEMP 36.9; O2SAT 95; BMI 52.7
--- NOTE | 2024-07-23 08:10 | AM.OFFWIN_ITS ---
Intake Vital Signs 07/23/24 08:10 Height 5 ft 2 in Weight 288 lb BMI 52.7 BP 124/86 Blood Pressure Location Rt brachial Position Sitting Pulse 84 Pulse Source Pulse Oximeter Temp 98.4 F Temp Source Oral Pulse Oximetry (%) 95 Oxygen Delivery Method Room Air Intake Visit Reasons: EP-lt eye itchy, swollen, sticky Intake Note: Patient here ror right ear pain that started yesterday and left eye redness and sticky Patient Tobacco Use Status: Never used Tobacco Allergies raspberry [Raspberry] Allergy (Mild, Verified 07/23/24 08:20) HIVES Do you need a note to return to daycare/school/sports/work: No HPI HPI Comments History of Present Illness Details 54 y/o female patient who presents to [facility] [place] [facility] with c/o left eye redness, itchy and pain x 2 days. [facility] Medical History (Updated 06/03/24 @ 10:17 by José Miguel Francisco MD) Difficulty using continuous positive airway pressure (CPAP) full face mask Nocturnal hypoxemia BRENDA treated with BiPAP Morbid obesity HTN (hypertension) Rash Insulin dependent diabetes mellitus Surgical History Previous section History of back surgery Family History Father No problems noted. Mother HTN (hypertension) Maternal Grandfather Cancer Sister No problems noted. Social History Housing: House Alcohol intake: unknown Patient Tobacco Use Status: Never used Tobacco e-Cigarette/Vaping Use: Never Used service: No Current occupational status: employed Cognitive needs: No Hearing needs: No Vision needs: Yes Review of Systems Const All systems reviewed & are unremarkable except as noted in HPI and below Physical Exam Vital Signs: Last Vital Signs Temp 98.4 F 07/23/24 08:10 Pulse 84 07/23/24 08:10 BP 124/86 07/23/24 08:10 Pulse Ox 95 07/23/24 08:10 Oxygen Delivery Method Room Air 07/23/24 08:10 BMI result Body Mass Index 52.7 Const General: cooperative and no acute distress Nutritional Appearance: obese Orientation/consciousness: patient oriented x3 HEENT Head: Yes normocephalic Ears: external ears normal and TM abnormal erythematous General nose exam: Abnormal mucous membranes and turbinates present erythematous Face and sinus: Yes sinuses nontender Mouth: moist mucous membranes Throat: Yes uvula midline and Yes postnasal drainage Eyes Conjunctivae: conjunctival abnormal left and diffuse Corneas: corneas abnormal diffuse Pupils: Equal, round and reactive pupils present EOM: EOMs intact bilaterally Resp Effort & Inspection: normal respiratory effort Auscultation: clear to auscultation bilaterally Cardio Heart sounds: S1 normal heart sound present and S2 normal heart sound present Neuro General: patient oriented x3 Cranial nerves: Yes Equal, round and reactive pupils present Assessment & Plan Assessment & Plan (1) Bacterial conjunctivitis of left eye: Code(s): H10.9 - Unspecified conjunctivitis Plan: Ordered Eye Drops Maintain a good eye hygiene Wash hands frequently. Medications: New ciprofloxacin HCl 0.3% put 1-2 drps in affected eye(s) every 2hr up to 8 times/day x2days; then 4 times/day x5days ophthalmic (eye) 10 mL 0RF H10.9 - Unspecified conjunctivitis Coding Level of Care Code Est Pt Level 3 (98269) Diagnoses Bacterial conjunctivitis of left eye H10.9 Time Spent (min) 15
== END 2024-07-23 09:13 | disposition home or self-care (01) ==
PROVIDERS: PCP Internal Medicine; Visit Provider Nurse Practitioner Family
DX: H10.9 Unspecified conjunctivitis (principal)

== ENCOUNTER → 2024-07-23 08:03 | Outpatient (BNVA) | payer OTHER, SELFPAY | PROVIDERS: PCP Internal Medicine; Visit Provider Nurse Practitioner Family ==

== ENCOUNTER 2024-08-06 08:47 | Outpatient (AMB) | payer OTHER, SELFPAY ==
--- NOTE | 2024-08-06 08:51 | MHC.PC.OV ---
Intake Visit Reasons: DM, Blood pressure, anxiety [phone] Allergies raspberry [Raspberry] Allergy (Mild, Verified 08/06/24 08:52) HIVES Medication List - Last Reconciled 08/06/24 by Cara Byers MD albuterol sulfate 90 mcg/actuation (ProAir HFA) 1 inh inhalation QID PRN 30 days amlodipine-benazepril 5-20 mg 1 cap PO DAILY citalopram 40 mg PO DAILY 90 days [CPAP machine Full face mask F 20 with pressure setting 18/12 cm H2O. Please provide bi-level devise 18/12 cm H2O resmed aircurve 2 V auto.] fluticasone propionate 50 mcg/actuation (Flonase Allergy Relief) 1 spray intranasal BID 30 days gabapentin 300 mg PO TID insulin glargine (Basaglar KwikPen U-100 Insulin) 60 units (0.6 mL) subcut BID lancets (FreeStyle Lancets) As directed lidocaine 5% 1 patch topical DAILY lorazepam 1 mg PO ONCE PRN 90 days nystatin 1 appl topical DAILY PRN omeprazole 20 mg PO DAILY 90 days pen needle, diabetic (Easy Comfort Pen [place]) B.i.d. propranolol ER 60 mg PO DAILY 90 days semaglutide (Ozempic) 2 mg subcut QWEEK simvastatin 40 mg PO BEDTIME 90 days Tobacco use date assessed: 08/06/24 Dental Screening Dental Screen Date: 08/06/24 Did you have a dental visit in the last 12 months?: Yes Did you have a dental problem in the last 6 months where you did not have access to dental care?: No Was dental information given to patient?: Patient has dentist HPI DM, Blood pressure, anxiety [phone] HPI Details Chief Complaint The patient presents with concerns of a rash on the upper thigh and requests for medication refills. Regular follow up for medication refill Assessment and Plan 54-year-old female with a history of obstructive sleep apnea, type 2 diabetes mellitus, and hypertension, presenting for management of a rash on the upper thigh and follow-up on recent oxygen addition to the CPAP machine. By Dr. Francisco aviation operations specialist, The patient reports significant improvement in sleep quality and overall well-being since the adjustment. The upper thigh rash initially responded to nystatin powder; however, symptoms progressed to dryness and cracking. Co-existing health conditions including anxiety and hypertension are currently well-controlled. Patient denies any other acute symptoms and blood sugar levels are stable indicating effective diabetes control. 1. Type 2 Diabetes Mellitus Blood glucose levels are stable. Continue current management strategy; follow up with an manager corporate responsibility is anticipated. No new concerns or adjustments are needed at this time. 2. Dermatitis Of The Upper Thigh Transition from nystatin powder to a topical application of Lotrisone, containing antifungal and steroid components, to be administered nightly for one week to reduce inflammation and treat potential persistent fungal involvement. Reassess symptoms in two weeks. 3. Obstructive Sleep Apnea Continue use of CPAP with supplemental oxygen. Patient reports improved symptoms and respiratory status during sleep. Monitoring of nocturnal oxygen saturation to be continued. 4. Hypertension Blood pressure is currently well-controlled. Continue current antihypertensive management. 5. Medication Refill Requests Refill of lorazepam and inhaler as requested by the patient. 6. Anxiety Refill lorazepam as requested. No changes in dosage or administration reported as necessary at this time. Problem List - Conjunctivitis (resolved) - Obstructive Sleep Apnea - Dermatitis of the upper thigh - Anxiety - Type 2 Diabetes Mellitus - Hypertension Patient Instructions - Apply Lotrisone cream to the affected thigh area nightly for one week. - Continue using nystatin powder during the day. - Monitor blood glucose levels and maintain current diabetes management plan. - Continue using the CPAP with supplemental oxygen. - occup ther prescribed medications, including the inhaler and lorazepam. - Contact the office if experiencing worsening of symptoms or new concerns arise. - Enjoy the holidays and take note of any need to adjust appointments for health management. [facility] Medical History Difficulty using continuous positive airway pressure (CPAP) full face mask Nocturnal hypoxemia BRENDA treated with BiPAP Morbid obesity HTN (hypertension) Rash Insulin dependent diabetes mellitus Surgical History Previous section History of back surgery Family History Father No problems noted. Mother HTN (hypertension) Maternal Grandfather Cancer Sister No problems noted. Social History Housing: House Alcohol intake: unknown Patient Tobacco Use Status: Never used Tobacco e-Cigarette/Vaping Use: Never Used service: No Current occupational status: employed Cognitive needs: No Hearing needs: No Vision needs: Yes Questionnaire Thrive Questionnaire Date Thrive assessed: 05/12/24 AUDIT C Alcohol Use Questionnaire (AUDIT-C) 1. How often do you have a drink containing alcohol?: Monthly or less 2. How many drinks containing alcohol do you have on a typical day when you are drinking?: 1 or 2 3. How often do you have six or more drinks on one occasion?: Never Total Score: 1 Score Reviewed/Action Taken: Yes SARAH-7 AMB Questionnaire SARAH-7 Date SARAH - 7 assessed: 05/12/24 Source: Developed by Drs. Zaheer Suazo, Silvia Gibbs, Thee Ahmadi and colleagues, with an educational esa from [employer]. Review of Systems Const Denies chills and Denies fever(s) ENT Denies epistaxis and Denies nasal discharge Card Denies chest pain Resp Denies chest congestion, Denies cough and Denies hemoptysis GI Denies diarrhea and Denies nausea Skin/Breast Denies rash Neuro Reports no additional complaints Psych Reports no additional complaints Endo Reports no additional complaints Physical exam (Primary Care) Tobacco/Smoking Status: Tobacco use Status Tobacco use date assessed 08/06/24 08/06/24 08:53 Patient Tobacco Use Status Never used Tobacco 08/06/24 08:53 e-Cigarette/Vaping Use Never Used 08/06/24 08:53 Thrive Assessment: Date of Thrive Assessment Date Thrive assessed 05/12/24 08/06/24 08:53 Telehealth Telehealth Telehealth Platform: [facility] Location of provider rendering services: practice address Location of patient: address on file Patient Identification confirmed using: Name, : Yes Telehealth method: video Patient verbally consented to treatment: Yes Patient verbally consented to billing insurance company: Yes Patient informed of any privacy concerns related to visit: Yes Minutes spent on Phone/Video with Pt.: 13 Coding Level of Care Code Tele Est Pt Level 3 (50604) Diagnoses Anxiety, generalized F41.1 Tinea corporis B35.4 Hypertension, essential I10 Recurrent major depressive disorder, in full remission F33.42 Active/Remission status: in full remission Diabetes 1.5, managed as type 1 E13.9 meterman (current) use of insulin Z79.4 Nocturnal hypoxemia G47.34 Assessment & Plan Assessment & Plan (1) Anxiety, generalized: Code(s): F41.1 - Generalized anxiety disorder Category: Medical (2) Tinea corporis: Code(s): B35.4 - Tinea corporis Category: Medical (3) Hypertension, essential: Code(s): I10 - Essential (primary) hypertension Category: Medical (4) Depression, major, recurrent: Code(s): F33.9 - Major depressive disorder, recurrent, unspecified Category: Medical Qualifiers: Active/Remission status: in full remission Qualified Code(s): F33.42 - Major depressive disorder, recurrent, in full remission (5) Diabetes 1.5, managed as type 1: Code(s): E13.9 - Other specified diabetes mellitus without complications Category: Medical (6) meterman (current) use of insulin: Code(s): Z79.4 - halfway (current) use of insulin Category: Medical (7) Nocturnal hypoxemia: Comment: THE NOCTURNAL HYPOXEMIA WAS NOT COMPLETELY RESOLVED BUT DEFINITELY IMPROVED WITH THE USE OF BIPAP Code(s): G47.34 - Idiopathic sleep related nonobstructive alveolar hypoventilation Category: Medical Plan Chief Complaint The patient presents with concerns of a rash on the upper thigh and requests for medication refills. Regular follow up for medication refill Assessment and Plan 54-year-old female with a history of obstructive sleep apnea, type 2 diabetes mellitus, and hypertension, presenting for management of a rash on the upper thigh and follow-up on recent oxygen addition to the CPAP machine. By Dr. Francisco aviation operations specialist, The patient reports significant improvement in sleep quality and overall well-being since the adjustment. The upper thigh rash initially responded to nystatin powder; however, symptoms progressed to dryness and cracking. Co-existing health conditions including anxiety and hypertension are currently well-controlled. Patient denies any other acute symptoms and blood sugar levels are stable indicating effective diabetes control. 1. Type 2 Diabetes Mellitus Blood glucose levels are stable. Continue current management strategy; follow up with an manager corporate responsibility is anticipated. No new concerns or adjustments are needed at this time. 2. Dermatitis Of The Upper Thigh Transition from nystatin powder to a topical application of Lotrisone, containing antifungal and steroid components, to be administered nightly for one week to reduce inflammation and treat potential persistent fungal involvement. Reassess symptoms in two weeks. 3. Obstructive Sleep Apnea Continue use of CPAP with supplemental oxygen. Patient reports improved symptoms and respiratory status during sleep. Monitoring of nocturnal oxygen saturation to be continued. 4. Hypertension Blood pressure is currently well-controlled. Continue current antihypertensive management. 5. Medication Refill Requests Refill of lorazepam and inhaler as requested by the patient. 6. Anxiety Refill lorazepam as requested. No changes in dosage or administration reported as necessary at this time. Problem List - Conjunctivitis (resolved) - Obstructive Sleep Apnea - Dermatitis of the upper thigh - Anxiety - Type 2 Diabetes Mellitus - Hypertension Patient Instructions - Apply Lotrisone cream to the affected thigh area nightly for one week. - Continue using nystatin powder during the day. - Monitor blood glucose levels and maintain current diabetes management plan. - Continue using the CPAP with supplemental oxygen. - occup ther prescribed medications, including the inhaler and lorazepam. - Contact the office if experiencing worsening of symptoms or new concerns arise. - Enjoy the holidays and take note of any need to adjust appointments for health management. Medications: New clotrimazole-betamethasone 1-0.05 % 1 appl topical ONCE 30 days 45 grams 0RF Refilled lorazepam 1 mg PO ONCE 90 days PRN 90 tabs 0RF anxiety F41.1 - Generalized anxiety disorder
== END 2024-08-06 09:54 | disposition home or self-care (01) ==
LOC: HO.HMCC 08:48
PROVIDERS: PCP Internal Medicine; Visit Provider Internal Medicine
DX: I10 Essential (primary) hypertension (principal); F33.42 Major depressive disorder, recurrent, in full remission; E13.9 Other specified diabetes mellitus without complications; Z79.4 Long term (current) use of insulin; F41.1 Generalized anxiety disorder; B35.4 Tinea corporis; G47.34 Idiopathic sleep related nonobstructive alveolar hypoventilation

== ENCOUNTER 2024-09-08 08:03 | Outpatient (REF) | payer OTHER, SELFPAY ==
--- NOTE | ~2024-09-08 | XR_ITS ---
EXAMINATION: XR FINGERS RIGHT HISTORY: W19.XXXA - Unspecified fall, initial encounter COMPARISON: There are no prior studies available for comparison. FINDINGS: Three views of the right index finger are submitted. Osseous mineralization is normal. There is no fracture or dislocation. The joint spaces are preserved. The soft tissues are unremarkable. XR/XR finger RT min 2V IMPRESSION: Unremarkable examination of the right index finger. Electronically signed by: Zaheer Curry MD 09/08/2024 11:45 AM JERSON
--- NOTE | ~2024-09-08 | XR_ITS ---
EXAMINATION: XR SHOULDER 2 OR MORE VIEWS LEFT HISTORY: W19.XXXA - Unspecified fall, initial encounter COMPARISON: There are no prior studies available for comparison. FINDINGS: Four views of the left shoulder are submitted. There are rounded lucencies in the region of the greater tuberosity. Osseous mineralization is otherwise normal. There is no fracture or dislocation. There is moderate osteoarthritis of the AC joint. The glenohumeral joint is maintained. The soft tissues are unremarkable. XR/XR shoulder LT min 2V IMPRESSION: Moderate osteoarthritis of the AC joint. No evidence of fracture of the left shoulder. Electronically signed by: Zaheer Curry MD 09/08/2024 11:46 AM JERSON
== END 2024-09-08 08:04 | disposition home or self-care (01) ==
LOC: HO.HMGCX 08:03
PROVIDERS: PCP Internal Medicine; Visit Provider Physician Assistant
DX: S69.90XA Unspecified injury of unspecified wrist, hand and finger(s), initial encounter (principal); S49.90XA Unspecified injury of shoulder and upper arm, unspecified arm, initial encounter; W19.XXXA Unspecified fall, initial encounter
CPT/HCPCS: 73030; 73140

== ENCOUNTER 2024-09-08 08:03 | Outpatient (AMB) | payer OTHER, SELFPAY ==
[2024-09-08 08:14] VITALS: BP 142/76; PULSE 70; TEMP 36.8; O2SAT 98; BMI 53.6
--- NOTE | 2024-09-08 08:14 | AM.OFFWIN_ITS ---
Intake Vital Signs 3 09/08/24 08:14 Height 5 ft 2 in Weight 293 lb BMI 53.6 BP 142/76 H Blood Pressure Location Lt brachial Position Sitting Pulse 70 Pulse Source Pulse Oximeter Temp 98.2 F Temp Source Oral Pulse Oximetry (%) 98 Oxygen Delivery Method Room Air Intake Visit Reasons: EP Fall, RT pointer finger Intake Note: Pt is here today c/o Rt index finger and Lt shoulder pain due to a fall yesterday at home Patient Tobacco Use Status: Never used Tobacco Allergies raspberry [Raspberry] Allergy (Mild, Verified 09/08/24 08:17) HIVES Medication List - Last Reconciled 09/08/24 by Cara Byers MD albuterol sulfate 90 mcg/actuation 1 inh inhalation QID PRN 30 days amlodipine-benazepril 5-20 mg 1 cap PO DAILY citalopram 40 mg PO DAILY 90 days clotrimazole-betamethasone 1-0.05 % 1 appl topical ONCE 30 days [CPAP machine Full face mask F 20 with pressure setting 18/12 cm H2O. Please provide bi-level devise 18/12 cm H2O resmed aircurve 2 V auto.] fluticasone propionate 50 mcg/actuation (Flonase Allergy Relief) 1 spray intranasal BID 30 days gabapentin 300 mg PO TID insulin glargine (Basaglar KwikPen U-100 Insulin) 60 units (0.6 mL) subcut BID lancets (FreeStyle Lancets) As directed lidocaine 5% 1 patch topical DAILY lorazepam 1 mg PO ONCE PRN 90 days nystatin 1 appl topical DAILY PRN omeprazole 20 mg PO DAILY 90 days pen needle, diabetic (Easy Comfort Pen [place]) B.i.d. propranolol ER 60 mg PO DAILY 90 days semaglutide (Ozempic) 2 mg subcut QWEEK simvastatin 40 mg PO BEDTIME 90 days HPI EP Fall, RT pointer finger 2 HPI0 Details Chief Complaint Patient complains of pain in the left shoulder and right index finger following a fall. History of Present Illness - The patient is a 54-year-old female pr esenting with pain from injuries after a fall. - The fall occurred due to entanglement in a CPAP cord, resulting in injury to her left shoulder and right index finger. - The left shoulder shows bruising, thou gh full range of motion is maintained. - The right index finger presents with s welling and is suspected of a possible fracture. - No head injury was sustained during th e fall - fall happened few hours ago Review of Systems Musculoskeletal: - Reports pain in the left shoulder. - Reports swelling and tightness in the right index finger. 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 Consideration will also be given to x-ray the left shoulder based on clinical findings, although the current presentation suggests no immediate fractures. The patient is advised to keep the affected finger elevated to reduce swelling and use Tylenol for pain relief. Further management will be determined based on x- ray results, and follow-up will be initiated to assess the need for further intervention or consultation with orthopedics. [facility] Medical History Difficulty using continuous positive airway pressure (CPAP) full face mask Nocturnal hypoxemia BRENDA treated with BiPAP Morbid obesity HTN (hypertension) Rash Insulin dependent diabetes mellitus Surgical History Previous section History of back surgery Family History Father No problems noted. Mother HTN (hypertension) Maternal Grandfather Cancer Sister No problems noted. Social History Housing: House Alcohol intake: unknown Patient Tobacco Use Status: Never used Tobacco e-Cigarette/Vaping Use: Never Used service: No Current occupational status: employed Cognitive needs: No Hearing needs: No Vision needs: Yes Physical Exam Vital Signs: Last Vital Signs Temp 98.2 F 09/08/24 08:14 Pulse 70 09/08/24 08:14 BP 142/76 H 09/08/24 08:14 Pulse Ox 98 09/08/24 08:14 Oxygen Delivery Method Room Air 09/08/24 08:14 BMI result Body Mass Index 53.6 Const General: no acute distress Orientation/consciousness: patient oriented x3 Eyes General: appearance normal, both eyes and all related structures Resp Effort & Inspection: normal respiratory effort and able to speak in complete sentences Neuro General: patient oriented x3 Extrem Shoulder/upper arm images: 2 1. Ecchymosis noted 2. Tender to palpation however range of motion is intact Hand/finger images: 2 1. Swollen, tender, limited range of motion, slight ecchymosis in the middle, sensations intact, radial pulse intact Psych Mental Status: mental status grossly normal Assessment & Plan Assessment & Plan (1) Fall: Code(s): W19.XXXA - Unspecified fall, initial encounter Qualifiers: Encounter type: initial encounter Qualified Code(s): W19.XXXA - Unspecified fall, initial encounter (2) Finger injury: Code(s): S69.90XA - Unspecified injury of unspecified wrist, hand and finger(s), initial encounter Qualifiers: Encounter type: initial encounter Laterality: right Qualified Code(s): S69.91XA - Unspecified injury of right wrist, hand and finger(s), initial encounter (3) Shoulder injury: Code(s): S49.90XA - Unspecified injury of shoulder and upper arm, unspecified arm, initial encounter Qualifiers: Encounter type: initial encounter Laterality: left Qualified Code(s): S49.92XA - Unspecified injury of left shoulder and upper arm, initial encounter Plan Chief Complaint Patient complains of pain in the left shoulder and right index finger following a fall. History of Present Illness - The patient is a 54-year-old female presenting with pain from injuries after a fall. - The fall occurred due to entanglement in a CPAP cord, resulting in injury to her left shoulder and right index finger. - The left shoulder shows bruising, though full range of motion is maintained. - The right index finger presents with swelling and is suspected of a possible fracture. - No head injury was sustained during the fall - fall happened few hours ago Review of Systems Musculoskeletal: - Reports pain in the left shoulder. - Reports swelling and tightness in the right index finger. 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 Consideration will also be given to x-ray the left shoulder based on clinical findings, although the current presentation suggests no immediate fractures. The patient is advised to keep the affected finger elevated to reduce swelling and use Tylenol for pain relief. Further management will be determined based on x- ray results, and follow-up will be initiated to assess the need for further intervention or consultation with orthopedics. Orders: Orders 2 XR finger RT min 2V Today S49.90XA - Unspecified injury of shoulder and upper arm, unspecified arm, initial encounter, S69.90XA - Unspecified injury of unspecified wrist, hand and finger(s), initial encounter, W19.XXXA - Unspecified fall, initial encounter XR shoulder LT min 2V Today S49.90XA - Unspecified injury of shoulder and upper arm, unspecified arm, initial encounter, S69.90XA - Unspecified injury of unspecified wrist, hand and finger(s), initial encounter, W19.XXXA - Unspecified fall, initial encounter Coding Level of Care Code Est Pt Level 4 (57480) Diagnoses Fall, initial encounter W19.XXXA Encounter type: initial encounter Injury of finger of right hand, initial encounter S69.91XA Encounter type: initial encounter Laterality: right Injury of left shoulder, initial encounter S49.92XA Encounter type: initial encounter Laterality: left
== END 2024-09-08 08:57 | disposition home or self-care (01) ==
PROVIDERS: PCP Internal Medicine; Visit Provider Internal Medicine
DX: S69.91XA Unspecified injury of right wrist, hand and finger(s), initial encounter (principal); W19.XXXA Unspecified fall, initial encounter; S49.92XA Unspecified injury of left shoulder and upper arm, initial encounter

== ENCOUNTER → 2024-09-08 09:07 | Outpatient (BNV) | payer OTHER, SELFPAY | PROVIDERS: PCP Internal Medicine; Visit Provider Radiology Diagnostic Radiology | DX: S49.92XA Unspecified injury of left shoulder and upper arm, initial encounter (principal); S60.940A Unspecified superficial injury of right index finger, initial encounter | CPT/HCPCS: 73030; 73140 ==

== ENCOUNTER → 2024-09-30 11:35 | Outpatient (AMB) | payer OTHER, SELFPAY ==
--- NOTE | 2024-09-30 11:35 | HO.NEPHOV_ITS ---
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 Please provide bi-level devise 18/12 cm H2O resmed aircurve 2 V auto.] fluticasone propionate 50 mcg/actuation (Flonase Allergy Relief) 1 spray intranasal BID 30 days gabapentin 300 mg PO TID insulin glargine (Basaglar KwikPen U-100 Insulin) 60 units (0.6 mL) subcut BID lancets (FreeStyle Lancets) As directed lidocaine 5% 1 patch topical DAILY lorazepam 1 mg PO ONCE PRN 90 days nystatin 1 appl topical DAILY PRN omeprazole 20 mg PO DAILY 90 days pen needle, diabetic (Easy Comfort Pen [place]) B.i.d. propranolol ER 60 mg PO DAILY 90 days semaglutide (Ozempic) 2 mg subcut QWEEK simvastatin 40 mg PO BEDTIME 90 days HPI Comments Details: Karen is a pleasant 53 yr old woman with a h/o HTN and DM in a setting of kathia vated BMI Here for follow up regarding her HTN Renal function has been stable She is on Ozempic and lost about 10 lbs. 09/03/2024. Tele visit today. She took her medication but did not have her breakfast. She not feeling well in and she was unable to come to the office She has not lost any further weight with Ozempic [facility] Medical History Difficulty using continuous positive airway pressure (CPAP) full face mask Nocturnal hypoxemia BRENDA treated with BiPAP Morbid obesity HTN (hypertension) Rash Insulin dependent diabetes mellitus Surgical History Previous section History of back surgery Family History Father No problems noted. Mother HTN (hypertension) Maternal Grandfather Cancer Sister No problems noted. Social History Housing: House Alcohol intake: unknown Patient Tobacco Use Status: Never used Tobacco e-Cigarette/Vaping Use: Never Used service: No Current occupational status: employed Cognitive needs: No Hearing needs: No Vision needs: Yes Physical Exam Vital Signs: BMI result Body Mass Index 52.1 Results Reviewed Results Reviewed: Labs spent Nephrology Results: No Data to Display Assessment & Plan Assessment & Plan (1) Microalbuminuria due to type 2 diabetes mellitus: Code(s): E11.29 - Type 2 diabetes mellitus with other diabetic kidney complication; R80.9 - Proteinuria, unspecified Category: Medical (2) Hypertension, essential: Code(s): I10 - Essential (primary) hypertension Category: Medical Plan 54 yr old woman with HTN and DM in a setting of elevated BMI of 50 and microabluminuria Renal function is normal at baseline Goal is to maintain BP < 130/80 She will benefit from weight loss Maintain A1C < 7% Continue JANNET inhibition and SGLT-2 inhibitors Low salt diet Repeat lab work ordered. Watch for hyponatremia. Coding Level of Care Code Tele New Pt Level 3 (92273) Diagnoses Microalbuminuria due to type 2 diabetes mellitus E11.29; R80.9 Hypertension, essential I10
[2024-09-30 11:37] VITALS: BMI 52.1
--- OUTSIDE RECORDS SUMMARY | 2024-09-30 15:33 | XMS_ITS | Encounter Summary ---
Author Organization [facility] Address [address] [place] [address] Phone Care Team Providers Care Direct Service Provider Name Role Phone Unavailable Primary Care Provider Unavailabl e Encounter Details Date Type Department Care Team (Late st Contact Info) Description 04/25/2022 Telephone [facility] [address] [place] [address] Rene Nelson MD Social History Tobacco Use Types Packs/Day Years Used Date Smoking Tobacco: Never Smokeless Tobacco: Never Alcohol Use Standard Drinks/Week Comments Yes 0 (1 standard drink = 0.6 oz pure alcohol) Alcoholic Drinks/day: Occasional social drink Comments Unknown Sex and Gender Information Value Date Recorded Sex Assigned at Not on file Legal Sex Female 5:01 PM EST Gender Identity Not on file Sexual Orientation Not on file documented as of this encounter Miscellaneous Notes * Telephone Encounter - Marium Yin - 04/25/2022 1:54 PM EDT Labs faxed * Telephone Encounter - Marium Yin - 04/25/2022 1:24 PM EDT Pt called, she feels like her Gout is coming back and would like to have labs done. Please advise Thank you CB# [phone] documented in this encounter Plan of Treatment Not on file documented as of this encounter Visit Diagnoses Not on filedocumented in this encounter
--- OUTSIDE RECORDS SUMMARY | 2024-09-30 15:33 | XMS_ITS | Encounter Summary ---
Author Organization [facility] Address [address] [place] [address] Phone Care Team Providers Care Furniture Cleaner Name Role Phone Unavailable Primary Care Provider Unavailabl e Encounter Details Date Type Department Care Team (Late st Contact Info) Description 04/15/2022 Telephone [facility] [address] [place] [address] Rene Nelson MD Social History [...] on file Sexual Orientation Not on file COVID-19 Exposure Response Date Recorded In the last 10 days, have yo u been in contact with someone who was confirmed or suspected to have Coronavirus/COVID-19? No / Unsure 03/19/2022 3:36 PM EDT documented as of this encounter Miscellaneous Notes * Telephone Encounter - Jesusita Phan - 04/16/2022 4:16 PM EDT Please advise * Telephone Encounter - Marium Yin - 04/15/2022 9:27 AM EDT Pt called, she has gout in her foot and the pain is worsening she would like to speak with you for guidance. Please call her back at [phone] Thank you documented in this encounter Plan of Treatment Not on file documented as of this encounter Visit Diagnoses Not on filedocumented in this encounter
--- OUTSIDE RECORDS SUMMARY | 2024-09-30 15:33 | XMS_ITS | Encounter Summary ---
Author Organization [facility] Address [facility] [place] [address] Care Team Providers Care Ortho Tech Name Role Phone Benita Liu MD Primary Care Provider Cong garcia Encounter Details Date Type Department Care Team Description 11/13/2017 [employer] Report Medical Records [address] [place] [address] Latia Garcia MD Social History Tobacco Use Types Packs/Day Years Used Date Smoking Tobacco: Never Alcohol Use Standard Drinks/Week Comments No 0 (1 standard drink = 0.6 oz pur e alcohol) Sex Assigned at Date Recorded Not on file documented as of this encounter Plan of Treatment Not on file documented as of this encounter Visit Diagnoses Not on filedocumented in this encounter Care Teams Ortho Tech Relationship Specialty Start Date End Date Benita Liu MD PCP - General Internal Medicine 09/12/15 documented as of this encounter
--- OUTSIDE RECORDS SUMMARY | 2024-09-30 15:33 | XMS_ITS | Encounter Summary ---
Author Organization [facility] Address [facility] [place] [address] Care Team Providers Care Terrazzo Supervisor Name Role Phone Benita Liu MD Primary Care Provider Cong garcia Encounter Details Date Type Department Care Team Description 09/30/2017 Orders Only Medicine/Pediatrics - [address] [phone] Corie Harry PA-C Other screening mammogram Social History Tobacco Use Types Packs/Day Years Used Date Smoking Tobacco: Never Alcohol Use Standard Drinks/Week Comments No 0 (1 standard drink = 0.6 oz pur e alcohol) Sex Assigned at Date Recorded Not on file documented as of this encounter Plan of Treatment Not on file documented as of this encounter Procedures Procedure Name Priority Date/Time Associated Diagnosis Comments SCR MAMMO BI INCL CAD Routine 09/09/2017 Other screening mammogram documented in this encounter Results * SCR MAMMO BI INCL CAD (09/09/2017) Corie Harry PA-C MAMMOGRAPHY documented in this encounter Visit Diagnoses Diagnosis Other screening mammogram documented in this encounter Care Teams Terrazzo Supervisor Relationship Specialty Start Date End Date Benita Liu MD PCP - General Internal Medicine 09/12/15 documented as of this encounter
--- OUTSIDE RECORDS SUMMARY | 2024-09-30 15:33 | XMS_ITS | Clinical Summary ---
Author Organization [facility] Address [address] [place] [address] Phone Care Team Providers Care Glass Loading Equipment Tender Name Role Phone Unavailable Primary Care Provider Unavailabl e Allergies No known active allergies Medications albuterol HFA (PROVENTIL HFA;VENTOLIN HFA) 108 (90 Base) MCG/ACT inhaler Inhale 2 puffs 07/30/2016 Active atorvastatin (LIPITOR) 40 MG tablet Take 40 mg by mouth 07/10/2018 Active citalopram (CeleXA) 40 MG tablet Take 40 mg by mouth 03/09/2019 Active omeprazole (PriLOSEC) [address] capsule TAKE 1 CAPSULE BY MOUTH EVERY DAY 11/02/2018 Active propranolol (INDERAL) 60 MG tablet Take 80 mg by mouth 1 (one) time each day Active simvastatin (ZOCOR) 40 MG tablet Take 40 mg by mouth at bed time 05/24/2021 Active insulin lispro (HumaLOG) 100 UNIT/ML injection Inject 5-8 Units under the skin 3 (three) times a day before meals Active cyclobenzaprine (FLEXERIL) 10 MG tablet Take 10 mg by mouth in the morning and 10 mg at noon and 10 mg in the evening. 07/18/2021 Active fluticasone (FLONASE) 50 MCG/ACT nasal spray SHAKE LIQUID AND USE 1 SPRAY IN EACH NOSTRIL TWICE DAILY 08/16/2021 Active gabapentin (NEURONTIN) 300 MG capsule Take 600 mg by mouth every night 08/01/2021 Active LORazepam (ATIVAN) 1 MG tablet TAKE 1 TABLET BY MOUTH 1 TIME DAILY NEEDED FOR ANXIETY 08/28/2021 Active oxyCODONE (ROXICODONE) 5 MG immediate release tablet Take 5 mg by mouth every 8 (eight) hours if needed 07/16/2021 Active oxyCODONE-Aceta minophen (LYNOX) 2.5-300 MG per tablet Take 1 tablet by mouth 08/29/2021 Active amitriptyline (ELAVIL) 25 MG tablet Take 1 tablet by mouth every night 07/09/2018 Active insulin glargine (Basaglar KwikPen) 100 UNIT/ML injection Inject under the skin 08/29/2021 Active amLODIPine-evie zepril (Lotrel) 5-20 MG per capsule Take 1 capsule by mouth 1 (one) time each day 30 capsule 11 04/03/2023 Active Active Problems Problem Noted Date Diagnosed Date Hyperlipidemia 10/31/2021 04/03/2023 Overview (04/03/2023): Last Assessment & Plan: Controlled. LDL 77 mg/dL on simvastatin 40 mg daily. No changes required. Severe obesity 10/01/2021 Pure hypercholesterolemia 06/13/2017 Gastro-esophageal reflux disease without esophag itis 05/16/2017 Type 2 diabetes mellitus without complication Anxiety 12/21/2015 Essential hypertension 12/21/2015 Migraine 12/21/2015 Shoulder pain 12/21/2015 Immunizations Name Administration Dates Next Due Influenza TIV (IM) 05/28/2016 Influenza, MDCK, PF, Quadrivalent 07/09/2018 Influenza, MDCK, Quadrivalent, with preservative 05/16/2017 PPD Test 11/19/2017 Family History Medical History Relation Comments Cancer Father Hypertension Mother Diabetes Sibling 1 Brother Hypertension Sibling 2 Brothers Relation Status Comments Father Mother Alive Sibling 1 Sibling 2 Social History Tobacco Use Types Packs/Day Years Used Date Smoking Tobacco: Never Smokeless Tobacco: Never Tobacco Cessation:Counseling Given: Not Answered Alcohol Use Standard Drinks/Week Comments Yes 0 (1 standard drink = 0.6 oz pure alcohol) Alcoholic Drinks/day: Occasional social drink Comments Unknown Sex and Gender Information Value Date Recorded Sex Assigned at Not on file Legal Sex Female 5:01 PM EST Gender Identity Not on file Sexual Orientation Not on file Last Filed Vital Signs Vital Sign Reading Time Taken Comments Blood Pressure 159/82 04/03/2023 12:54 PM EDT Pulse 76 04/03/2023 12:54 PM EDT Temperature - - Respiratory Rate - - Oxygen Saturation 94% 06/08/2021 3:11 PM EDT Inhaled Oxygen Concentration - - Weight 124 kg (274 lb 6.4 oz) 04/03/2023 12:54 P M EDT Height 157.5 cm (5' 2 ) 06/08/2021 3:11 PM EDT Body Mass Index 50.19 06/08/2021 3:11 PM EDT Plan of Treatment Health Maintenance Due Date Last Done Comments Breast Cancer Screening 1969 Pneumococcal Vaccine: Pediat rics (0 to 5 Years) and At-Risk Patients (6 to 64 Years) (1 of 2 - PCV) 1975 Hepatitis B Vaccine (1 of 3 - 19+ 3-dose series) 02/26/1988 Colorectal Cancer Screening: Annual FOBT 2018 Colorectal Cancer Screening: Colonoscopy 2018 Colorectal Cancer Screening: Sigmoidoscopy 2018 Diabetes: Hemoglobin A1C 09/29/2020 05/02/2020 Diabetes: Ophthalmology Exam 09/29/2020 Diabetes: Pedal Pulse Checked 09/29/2020 Diabetes: Sensory Foot Exam 09/29/2020 Diabetes: Visual Foot Exam 09/29/2020 Influenza Vaccine (#1) 2024 8, 05/16/2017, 05/28/2016 Procedures Procedure Name Priority Date/Time Associated Diagnosis Comments BLOOD PANEL (HC) Routine 05/02/2020 12:0 0 AM EDT from Last 3 Months or Most Recently Relevant to Health Maintenance Results * (ABNORMAL) Blood Panel (05/02/2020 12:00 AM EDT) Potassium 5.4(H) 3.5 - 5.1 mmol/L [facility] Carbon Dioxide (CO2) 27 22 - 30 mmol/L [facility] Triglycerides 222(H) <150 mg/dl [facility] LDL,Direct 206(H) <130 mg/dl [facility] Hemoglobin A1C 8.1(H) <5 % [facility] Sodium 136(L) 137 - 145 mmol/L [facility] BUN 13 9 - 20 mg/dl [facility] Cholesterol 308(H) <200 mg/dl [facility] HDL 58 >40 mg/dl [facility] Hgb 12.9(L) 13.0 - 16.5 g/dl [facility] Hematocrit 40.5 38 - 50 % [facility] Platelets 198 140 - 440 k/uL [facility] Creatinine 0.93 0.70 - 1.30 mg/dl [facility] Calcium 9.5 8.4 - 10.2 mg/dl [facility] 05/02/2020 us [facility] [id number] LICITED RESULTS Final Result [facility] from Last 3 Months or Most Recently Relevant to Health Maintenance Insurance COMPREHENSIVE BENEFITS COMPREHENSIVE BENEFITS
--- OUTSIDE RECORDS SUMMARY | 2024-09-30 15:34 | XMS_ITS | Encounter Summary ---
Author Organization [facility] Address [facility] [place] [address] Care Team Providers Care Railroad Conductor Name Role Phone eBnita Liu MD Primary Care Provider Cong garcia Encounter Details Date Type Department Care Team Description 01/20/2017 Orders Only Medicine/Pediatrics - [address] [phone] Bill Bedolla PA-C Hyperkalemia (Primary Dx) Social History Tobacco Use Types Packs/Day Years Used Date Smoking Tobacco: Never Alcohol Use Standard Drinks/Week Comments No 0 (1 standard drink = 0.6 oz pur e alcohol) Sex Assigned at Date Recorded Not on file documented as of this encounter Plan of Treatment Not on file documented as of this encounter Results * (ABNORMAL) POTASSIUM ASSAY (01/21/2017 8:56 AM EDT) Potassium 5.8(H) 3.5 - 5.5 mEq/L 01/21/2017 12:56 PM EDT [facility] 01/21/2017 8:56 AM EDT 01/21/2017 8:56 AM EDT Bill Bedolla PA-C LAB [facility] [address] documented in this encounter Visit Diagnoses Diagnosis Hyperkalemia- Primary Hyperpotassemia documented in this encounter Care Teams Railroad Conductor Relationship Specialty Start Date End Date Benita Liu MD PCP - General Internal Medicine 09/12/15 documented as of this encounter
--- OUTSIDE RECORDS SUMMARY | 2024-09-30 15:34 | XMS_ITS | Encounter Summary ---
Author Organization [facility] Address [facility] [place] [address] Care Team Providers Care Research Kennel Supervisor Name Role Phone Benita Liu MD Primary Care Provider Cong garcia Encounter Details Date Type Department Care Team Description 03/22/2016 ELEVATOR EXAMINER AND ADJUSTER/[facility] Report Medical Records [address] [place] [address] Benita Liu MD Social History Tobacco Use Types Packs/Day Years Used Date Smoking Tobacco: Never Alcohol Use Standard Drinks/Week Comments No 0 (1 standard drink = 0.6 oz pur e alcohol) Sex Assigned at Date Recorded Not on file documented as of this encounter Plan of Treatment Not on file documented as of this encounter Visit Diagnoses Not on filedocumented in this encounter Care Teams Research Kennel Supervisor Relationship Specialty Start Date End Date Benita Liu MD PCP - General Internal Medicine 09/12/15 documented as of this encounter
--- OUTSIDE RECORDS SUMMARY | 2024-09-30 15:34 | XMS_ITS | Encounter Summary ---
Author Organization [facility] Address [facility] [place] [address] Care Team Providers Care Social Welfare Clerk Name Role Phone Benita Liu MD Primary Care Provider Cong garcia Encounter Details Date Type Department Care Team Description 12/27/2015 Controlled Substance Contract with Plan Medical Records [address] [place] [address] Abstract, Provider Social History Tobacco Use Types Packs/Day Years Used Date Smoking Tobacco: Never Alcohol Use Standard Drinks/Week Comments No 0 (1 standard drink = 0.6 oz pur e alcohol) Sex Assigned at Date Recorded Not on file documented as of this encounter Plan of Treatment Not on file documented as of this encounter Visit Diagnoses Not on filedocumented in this encounter Care Teams Social Welfare Clerk Relationship Specialty Start Date End Date Benita Liu MD PCP - General Internal Medicine 09/12/15 documented as of this encounter
--- OUTSIDE RECORDS SUMMARY | 2024-09-30 15:34 | XMS_ITS | Encounter Summary ---
Author Organization [facility] Address [address] [place] [address] Care Team Providers Care Home Stereo Equipment Installer Name Role Phone Benita Liu MD Primary Care Provider Unavaila ble Reason for Visit * Reason Onset Date Comments Special Procedure 11/07/2020 Encounter Details Date Type Department Care Team Description 11/07/2020 Telephone Gastroenterology - [address] [place] [address] Azael Moeller MD [address] [place] [address] Special Procedure Social History Tobacco Use Types Packs/Day Years Used Date Smoking Tobacco: Never Smokeless Tobacco: Never Alcohol Use Standard Drinks/Week Comments No 0 (1 standard drink = 0.6 oz pur e alcohol) Sex Assigned at Date Recorded Not on file documented as of this encounter Miscellaneous Notes * Telephone Encounter - Andie Douglas - 11/07/2020 2:05 PM EST Left message to schedule screening colon documented in this encounter Plan of Treatment Not on file documented as of this encounter Visit Diagnoses Not on filedocumented in this encounter Care Teams Home Stereo Equipment Installer Relationship Specialty Start Date End Date Benita Liu MD PCP - General Internal Medicine 09/12/15 documented as of this encounter
--- OUTSIDE RECORDS SUMMARY | 2024-09-30 15:34 | XMS_ITS | Encounter Summary ---
Author Organization [facility] Address [facility] [place] [address] Care Team Providers Care Network Liaison Name Role Phone Benita Liu MD Primary Care Provider Cong garcia Encounter Details Date Type Department Care Team Description 08/06/2016 Orders Only Adult Medicine [address] [address] Benita Liu MD Social History Tobacco Use [...] on filedocumented in this encounter Care Teams Network Liaison Relationship Specialty Start Date End Date Benita Liu MD PCP - General Internal Medicine 09/12/15 documented as of this encounter
--- OUTSIDE RECORDS SUMMARY | 2024-09-30 15:34 | XMS_ITS | Encounter Summary ---
Author Organization [facility] Address [facility] [place] [address] Care Team Providers Care Cadworx Piping Designer Name Role Phone Benita Liu MD Primary Care Provider Cong garcia Encounter Details Date Type Department Care Team Description 01/23/2017 Orders Only Medicine/Pediatrics - [address] [phone] Bill Bedolla PA-C Hyperkalemia (Primary Dx) Social History Tobacco Use Types Packs/Day Years Used Date Smoking Tobacco: Never Alcohol Use Standard Drinks/Week Comments No 0 (1 standard drink = 0.6 oz pur e alcohol) Sex Assigned at Date Recorded Not on file documented as of this encounter Plan of Treatment Not on file documented as of this encounter Results * POTASSIUM ASSAY (02/21/2017 8:58 AM EDT) Potassium 5.5 3.5 - 5.5 mEq/L 02/21/2017 2:04 PM EDT [facility] 02/21/2017 8:58 AM EDT 02/21/2017 8:59 AM EDT Bill Bedolla PA-C LAB [facility] [address] documented in this encounter Visit Diagnoses Diagnosis Hyperkalemia- Primary Hyperpotassemia documented in this encounter Care Teams Cadworx Piping Designer Relationship Specialty Start Date End Date Benita Liu MD PCP - General Internal Medicine 09/12/15 documented as of this encounter
--- OUTSIDE RECORDS SUMMARY | 2024-09-30 15:34 | XMS_ITS | Encounter Summary ---
Author Organization [facility] Address [address] [place] [address] Care Team Providers Care Chief Bank Examiner Name Role Phone Benita Liu MD Primary Care Provider Unavaila ble Reason for Visit * Reason Onset Date Comments medication problems 05/25/2019 Encounter Details Date Type Department Care Team Description 05/25/2019 Telephone Medicine/Pediatrics - [address] [phone] Benita Liu MD medication problems Social History Tobacco Use Types Packs/Day Years Used Date Smoking Tobacco: Never Smokeless Tobacco: Never Alcohol Use Standard Drinks/Week Comments No 0 (1 standard drink = 0.6 oz pur e alcohol) Sex Assigned at Date Recorded Not on file documented as of this encounter Miscellaneous Notes * Telephone Encounter - Benita Liu MD - 05/25/2019 12:17 PM EDT signed * Telephone Encounter - Toyin Muniz Rn - 05/25/2019 11:19 AM EDT New script set up , please review and advise Lab Results Component Value Date NA 135 02/03/2019 K 4.5 02/03/2019 CO2 24 02/03/2019 CL 99 02/03/2019 BUN 17 02/03/2019 CREAT 0.90 02/03/2019 GLU 242 02/03/2019 CA 9.1 02/03/2019 GFR > 60 02/03/2019 Last ov was with pcp on 02/17/19 * Telephone Encounter - Kelly Whitfield - 05/25/2019 9:04 AM EDT Who is calling? The patient Name of the medication propranolol (INNOPRAN XL) 80 MG 24 hr capsule What is the specific problem or interaction? States she has no ins. Would like to have dose changedfrom 80mgs to 20mg because they have a program that helps with med refills. States she would only have to pay $7 for 20mgs verses $100 for 80mgs If the patient is having a problem with taking the med - how long has the problem been going on? N/A documented in this encounter Plan of Treatment Not on file documented as of this encounter Visit Diagnoses Not on filedocumented in this encounter Care Teams Chief Bank Examiner Relationship Specialty Start Date End Date Benita Liu MD PCP - General Internal Medicine 09/12/15 documented as of this encounter
--- OUTSIDE RECORDS SUMMARY | 2024-09-30 15:34 | XMS_ITS | Encounter Summary ---
Author Organization [facility] Address [address] [place] [address] Care Team Providers Care Hand Cooper Helper Name Role Phone Benita Liu MD Primary Care Provider Cong garcia Encounter Details Date Type Department Care Team Description 02/24/2019 [facility] Medical Records [address] [place] [address] Abstract, Provider Social History Tobacco Use Types [...] on filedocumented in this encounter Care Teams Hand Cooper Helper Relationship Specialty Start Date End Date Benita Liu MD PCP - General Internal Medicine 09/12/15 documented as of this encounter
== END ==
PROVIDERS: PCP Internal Medicine; Visit Provider Internal Medicine Hypertension Specialist
DX: E11.29 Type 2 diabetes mellitus with other diabetic kidney complication (principal); R80.9 Proteinuria, unspecified; I10 Essential (primary) hypertension
CPT/HCPCS: 98016

== ENCOUNTER 2024-11-10 11:27 | Outpatient (AMB) | payer OTHER, SELFPAY ==
--- NOTE | 2024-11-10 11:28 | MHC.PC.OV ---
Intake Visit Reasons: [facility] / [phone] Allergies raspberry [Raspberry] Allergy (Mild, Verified 11/10/24 11:28) HIVES Medication List - Last Reconciled 11/10/24 by Cara Byers MD albuterol sulfate 90 mcg/actuation 1 inh inhalation QID PRN 30 days amlodipine-benazepril 5-20 mg 1 cap PO DAILY citalopram 40 mg PO DAILY 90 days clotrimazole-betamethasone 1-0.05 % 1 appl topical ONCE 30 days [CPAP machine Full face mask F 20 with pressure setting 18/12 cm H2O. Please provide bi-level devise 18/12 cm H2O resmed aircurve 2 V auto.] fluticasone propionate 50 mcg/actuation (Flonase Allergy Relief) 1 spray intranasal BID 30 days gabapentin 300 mg PO TID insulin glargine (Basaglar KwikPen U-100 Insulin) 60 units (0.6 mL) subcut BID lancets (FreeStyle Lancets) As directed lidocaine 5% 1 patch topical DAILY lorazepam 1 mg PO ONCE PRN 90 days nystatin 1 appl topical DAILY PRN omeprazole 20 mg PO DAILY 90 days pen needle, diabetic (Easy Comfort Pen [place]) B.i.d. propranolol ER 60 mg PO DAILY 90 days semaglutide (Ozempic) 2 mg subcut QWEEK simvastatin 40 mg PO BEDTIME 90 days Tobacco use date assessed: 11/10/24 Dental Screening Dental Screen Date: 11/10/24 Did you have a dental visit in the last 12 months?: No Did you have a dental problem in the last 6 months where you did not have access to dental care?: No Was dental information given to patient?: Patient has dentist HPI [facility] / [phone] HPI Details Chief Complaint Regular follow up for medication refill Assessment and Plan 54-year-old female with a history of obstructive sleep apnea, type 2 diabetes mellitus, and hypertension, sleep apnea established with Dr. Francisco retirement benefits specialist, The patient reports significant improvement in sleep quality and overall well-being since the adjustment. Also suffers from anxiety and hypertension are currently well-controlled. Patient denies any other acute symptoms and blood sugar levels are stable indicating effective diabetes control. Lab order placed to be done fasting 1. Type 2 Diabetes Mellitus Blood glucose levels are stable. Continue current management strategy patient was seeing Dr. Hartman endocrinology and since her sugars are stable she would like me to take over the scripts 2. Having difficulty losing weight 3. Obstructive Sleep Apnea Continue use of CPAP with supplemental oxygen. Patient reports improved symptoms and respiratory status during sleep. Monitoring of nocturnal oxygen saturation to be continued. 4. Hypertension Blood pressure is currently well-controlled. Continue current antihypertensive management. 5. Generalized anxiety disorder Refill of lorazepam was sent earlier Problem List - Obstructive Sleep Apnea - morbid obesity - Anxiety - Type 2 Diabetes Mellitus - Hypertension - allergies - chronic GERD - lipid disorder Patient Instructions - Monitor blood glucose levels and maintain current diabetes management plan. - Continue using the CPAP with supplemental oxygen. - continue other medications. - Contact the office if experiencing worsening of symptoms or new concerns arise. - lab order to be done fasting Follow-up 3 months [facility] Medical History Difficulty using continuous positive airway pressure (CPAP) full face mask Nocturnal hypoxemia BRENDA treated with BiPAP Morbid obesity HTN (hypertension) Rash Insulin dependent diabetes mellitus Surgical History Previous section History of back surgery Family History Father No problems noted. Mother HTN (hypertension) Maternal Grandfather Cancer Sister No problems noted. Social History Housing: House Alcohol intake: unknown Patient Tobacco Use Status: Never used Tobacco e-Cigarette/Vaping Use: Never Used service: No Current occupational status: employed Cognitive needs: No Hearing needs: No Vision needs: Yes Questionnaire Thrive Questionnaire Date Thrive assessed: 05/12/24 SARAH-7 AMB Questionnaire SARAH-7 Date SARAH - 7 assessed: 05/12/24 Source: Developed by Drs. Zaheer Suazo, Silvia Gibbs, Thee Ahmadi and colleagues, with an educational esa from [employer]. Review of Systems Const Denies chills and Denies fever(s) ENT Denies epistaxis and Denies nasal discharge Card Denies chest pain Resp Denies chest congestion, Denies cough and Denies hemoptysis GI Denies diarrhea and Denies nausea Neuro Reports no additional complaints Psych Reports no additional complaints Endo Reports no additional complaints Physical exam (Primary Care) Tobacco/Smoking Status: Tobacco use Status Tobacco use date assessed 11/10/24 11/10/24 11:28 Patient Tobacco Use Status Never used Tobacco 11/10/24 11:28 e-Cigarette/Vaping Use Never Used 11/10/24 11:28 Thrive Assessment: Date of Thrive Assessment Date Thrive assessed 05/12/24 11/10/24 11:28 Telehealth Telehealth Telehealth Platform: [employer] Location of provider rendering services: practice address Location of patient: address on file Patient Identification confirmed using: Name, : Yes Telehealth method: video (Attempted multiple times) Patient verbally consented to treatment: Yes Patient verbally consented to billing insurance company: Yes Patient informed of any privacy concerns related to visit: Yes Coding Level of Care Code Tele Est Pt Level 4 (17841) Diagnoses Hypertension, essential I10 Anxiety, generalized F41.1 Lipid disorder E78.9 Recurrent major depressive disorder, in full remission F33.42 Active/Remission status: in full remission Diabetes 1.5, managed as type 1 E13.9 FDC (current) use of insulin Z79.4 Diabetic nephropathy with proteinuria E11.21 Chronic GERD K21.9 Headache syndrome G44.89 Microalbuminuria due to type 2 diabetes mellitus E11.29; R80.9 Morbid obesity E66.01 BRENDA treated with BiPAP G47.33 Assessment & Plan Assessment & Plan (1) Hypertension, essential: Code(s): I10 - Essential (primary) hypertension Category: Medical (2) Anxiety, generalized: Code(s): F41.1 - Generalized anxiety disorder Category: Medical (3) Lipid disorder: Code(s): E78.9 - Disorder of lipoprotein metabolism, unspecified Category: Medical (4) Depression, major, recurrent: Code(s): F33.9 - Major depressive disorder, recurrent, unspecified Category: Medical Qualifiers: Active/Remission status: in full remission Qualified Code(s): F33.42 - Major depressive disorder, recurrent, in full remission (5) Diabetes 1.5, managed as type 1: Code(s): E13.9 - Other specified diabetes mellitus without complications Category: Medical (6) computer terminal operator (current) use of insulin: Code(s): Z79.4 - computer terminal operator (current) use of insulin Category: Medical (7) Diabetic nephropathy with proteinuria: Code(s): E11.21 - Type 2 diabetes mellitus with diabetic nephropathy Category: Medical (8) Chronic GERD: Code(s): K21.9 - Gastro-esophageal reflux disease without esophagitis Category: Medical (9) Headache syndrome: Code(s): G44.89 - Other headache syndrome Category: Medical (10) Microalbuminuria due to type 2 diabetes mellitus: Code(s): E11.29 - Type 2 diabetes mellitus with other diabetic kidney complication; R80.9 - Proteinuria, unspecified Category: Medical (11) Morbid obesity: Comment: BMI=51.6 Code(s): E66.01 - Morbid (severe) obesity due to excess calories Category: Medical (12) BRENDA treated with BiPAP: Comment: HAS SEVERE OBSTRUCTIVE SLEEP APNEA WITH NOCTURNAL HYPOXEMIA. SUBJECTIVELY MUCH IMPROVED WITH THE USE OF BIPAP, HAS THE DISCOMFORT WITH THE CURRENT FULLFACE MASK, AND THERE IS SOME AIR LEAK. SHE IS VERY COMPLIANT AND USING THE BIPAP, AND DEFINITELY BENEFITING. Code(s): G47.33 - Obstructive sleep apnea (adult) (pediatric) Category: Medical Plan Chief Complaint Regular follow up for medication refill Assessment and Plan 54-year-old female with a history of obstructive sleep apnea, type 2 diabetes mellitus, and hypertension, sleep apnea established with Dr. Francisco retirement benefits specialist, The patient reports significant improvement in sleep quality and overall well-being since the adjustment. Also suffers from anxiety and hypertension are currently well-controlled. Patient denies any other acute symptoms and blood sugar levels are stable indicating effective diabetes control. Lab order placed to be done fasting 1. Type 2 Diabetes Mellitus Blood glucose levels are stable. Continue current management strategy patient was seeing Dr. Hartman endocrinology and since her sugars are stable she would like me to take over the scripts 2. Having difficulty losing weight 3. Obstructive Sleep Apnea Continue use of CPAP with supplemental oxygen. Patient reports improved symptoms and respiratory status during sleep. Monitoring of nocturnal oxygen saturation to be continued. 4. Hypertension Blood pressure is currently well-controlled. Continue current antihypertensive management. 5. Generalized anxiety disorder Refill of lorazepam was sent earlier Problem List - Obstructive Sleep Apnea - morbid obesity - Anxiety - Type 2 Diabetes Mellitus - Hypertension - allergies - chronic GERD - lipid disorder Patient Instructions - Monitor blood glucose levels and maintain current diabetes management plan. - Continue using the CPAP with supplemental oxygen. - continue other medications. - Contact the office if experiencing worsening of symptoms or new concerns arise. - lab order to be done fasting Follow-up 3 months Total time spent in care of this patient is 30 minute including reviewing previous labs, charting and documentation Orders: Orders Complete Blood Count Auto Diff Today E11.21 - Type 2 diabetes mellitus with diabetic nephropathy, E11.29 - Type 2 diabetes mellitus with other diabetic kidney complication, E13.9 - Other specified diabetes mellitus without complications, E66.01 - Morbid (severe) obesity due to excess calories, E78.9 - Disorder of lipoprotein metabolism, unspecified, F33.42 - Major depressive disorder, recurrent, in full remission, F41.1 - Generalized anxiety disorder, G44.89 - Other headache syndrome, G47.33 - Obstructive sleep apnea (adult) (pediatric), I10 - Essential (primary) hypertension, K21.9 - Gastro-esophageal reflux disease without esophagitis, R80.9 - Proteinuria, unspecified, Z79.4 - computer terminal operator (current) use of insulin Comprehensive [place]. Panel Fast Today E11.21 - Type 2 diabetes mellitus with diabetic nephropathy, E11.29 - Type 2 diabetes mellitus with other diabetic kidney complication, E13.9 - Other specified diabetes mellitus without complications, E66.01 - Morbid (severe) obesity due to excess calories, E78.9 - Disorder of lipoprotein metabolism, unspecified, F33.42 - Major depressive disorder, recurrent, in full remission, F41.1 - Generalized anxiety disorder, G44.89 - Other headache syndrome, G47.33 - Obstructive sleep apnea (adult) (pediatric), I10 - Essential (primary) hypertension, K21.9 - Gastro-esophageal reflux disease without esophagitis, R80.9 - Proteinuria, unspecified, Z79.4 - computer terminal operator (current) use of insulin Lipid Panel Today E11.21 - Type 2 diabetes mellitus with diabetic nephropathy, E11.29 - Type 2 diabetes mellitus with other diabetic kidney complication, E13.9 - Other specified diabetes mellitus without complications, E66.01 - Morbid (severe) obesity due to excess calories, E78.9 - Disorder of lipoprotein metabolism, unspecified, F33.42 - Major depressive disorder, recurrent, in full remission, F41.1 - Generalized anxiety disorder, G44.89 - Other headache syndrome, G47.33 - Obstructive sleep apnea (adult) (pediatric), I10 - Essential (primary) hypertension, K21.9 - Gastro-esophageal reflux disease without esophagitis, R80.9 - Proteinuria, unspecified, Z79.4 - FDC (current) use of insulin Hemoglobin A1c Today E11.21 - Type 2 diabetes mellitus with diabetic nephropathy, E11.29 - Type 2 diabetes mellitus with other diabetic kidney complication, E13.9 - Other specified diabetes mellitus without complications, E66.01 - Morbid (severe) obesity due to excess calories, E78.9 - Disorder of lipoprotein metabolism, unspecified, F33.42 - Major depressive disorder, recurrent, in full remission, F41.1 - Generalized anxiety disorder, G44.89 - Other headache syndrome, G47.33 - Obstructive sleep apnea (adult) (pediatric), I10 - Essential (primary) hypertension, K21.9 - Gastro-esophageal reflux disease without esophagitis, R80.9 - Proteinuria, unspecified, Z79.4 - computer terminal operator (current) use of insulin Microalbumin, Random (w Creat) Today E11.21 - Type 2 diabetes mellitus with diabetic nephropathy, E11.29 - Type 2 diabetes mellitus with other diabetic kidney complication, E13.9 - Other specified diabetes mellitus without complications, E66.01 - Morbid (severe) obesity due to excess calories, E78.9 - Disorder of lipoprotein metabolism, unspecified, F33.42 - Major depressive disorder, recurrent, in full remission, F41.1 - Generalized anxiety disorder, G44.89 - Other headache syndrome, G47.33 - Obstructive sleep apnea (adult) (pediatric), I10 - Essential (primary) hypertension, K21.9 - Gastro-esophageal reflux disease without esophagitis, R80.9 - Proteinuria, unspecified, Z79.4 - computer terminal operator (current) use of insulin TSH reflex Free T4 Today E11.21 - Type 2 diabetes mellitus with diabetic nephropathy, E11.29 - Type 2 diabetes mellitus with other diabetic kidney complication, E13.9 - Other specified diabetes mellitus without complications, E66.01 - Morbid (severe) obesity due to excess calories, E78.9 - Disorder of lipoprotein metabolism, unspecified, F33.42 - Major depressive disorder, recurrent, in full remission, F41.1 - Generalized anxiety disorder, G44.89 - Other headache syndrome, G47.33 - Obstructive sleep apnea (adult) (pediatric), I10 - Essential (primary) hypertension, K21.9 - Gastro-esophageal reflux disease without esophagitis, R80.9 - Proteinuria, unspecified, Z79.4 - FDC (current) use of insulin
--- OUTSIDE RECORDS SUMMARY | 2024-11-10 13:31 | XMS_ITS | Encounter Summary ---
Author Organization [facility] Address [facility] [place] [address] Care Team Providers Care Pipe Organ Technician Name Role Phone Benita Liu MD Primary Care Provider Cong garcia Encounter Details Date Type Department Care Team Description 12/27/2015 Controlled Substance Contract with Plan Medical Records [address] [place] [id number] Abstract, Provider Social History Tobacco Use Types [...] on filedocumented in this encounter Care Teams Pipe Organ Technician Relationship Specialty Start Date End Date Benita Liu MD PCP - General Internal Medicine 09/12/15 documented as of this encounter
--- OUTSIDE RECORDS SUMMARY | 2024-11-10 13:31 | XMS_ITS | Encounter Summary ---
Author Organization [facility] Address [facility] [place] [address] Care Team Providers Care Plugger Man Name Role Phone Benita Liu MD Primary Care Provider Cong garcia Encounter Details Date Type Department Care Team Description 03/20/2016 Controlled Substance Plan Medical Records [address] [place] [id number] Benita Liu MD Social History Tobacco Use [...] on filedocumented in this encounter Care Teams Plugger Man Relationship Specialty Start Date End Date Benita Liu MD PCP - General Internal Medicine 09/12/15 documented as of this encounter
--- OUTSIDE RECORDS SUMMARY | 2024-11-10 13:31 | XMS_ITS | Encounter Summary ---
Author Organization [facility] Address [facility] [place] [address] Care Team Providers Care Sales Representative Raw Fibers Name Role Phone Benita Liu MD Primary Care Provider Cong garcia Encounter Details Date Type Department Care Team Description 01/20/2017 Orders Only Medicine/Pediatrics - [address] [phone] Blil Bedolla PA-C Hyperkalemia (Primary Dx) Social History [...] - 5.5 mEq/L 01/21/2017 12:56 PM EDT [facility] 01/21/2017 8:56 AM EDT 01/21/2017 8:56 AM EDT Bill Bedolla PA-C LAB [facility] [place] [address] documented in this encounter Visit Diagnoses Diagnosis Hyperkalemia- Primary Hyperpotassemia documented in this encounter Care Teams Sales Representative Raw Fibers Relationship Specialty Start Date End Date Benita Liu MD PCP - General Internal Medicine 09/12/15 documented as of this encounter
--- OUTSIDE RECORDS SUMMARY | 2024-11-10 13:31 | XMS_ITS | Encounter Summary ---
Author Organization [facility] Address [facility] [place] [address] Care Team Providers Care Machine Operator Hay Stacker Name Role Phone Benita Liu MD Primary Care Provider Cong garcia Encounter Details Date Type Department Care Team Description 02/24/2019 [facility] Medical Records [address] [place] [id number] Abstract, Provider Social History Tobacco Use Types [...] on filedocumented in this encounter Care Teams Machine Operator Hay Stacker Relationship Specialty Start Date End Date Benita Liu MD PCP - General Internal Medicine 09/12/15 documented as of this encounter
--- OUTSIDE RECORDS SUMMARY | 2024-11-10 13:31 | XMS_ITS | Encounter Summary ---
Author Organization [facility] Address [facility] [place] [address] Care Team Providers Care Airplane Tube Builder Name Role Phone Benita Liu MD Primary Care Provider Cong garcia Encounter Details Date Type Department Care Team Description 11/13/2017 [facility] Report Medical Records [address] [place] [id number] Latia Garcia MD Social History Tobacco Use [...] on filedocumented in this encounter Care Teams Airplane Tube Builder Relationship Specialty Start Date End Date Benita Liu MD PCP - General Internal Medicine 09/12/15 documented as of this encounter
--- OUTSIDE RECORDS SUMMARY | 2024-11-10 13:31 | XMS_ITS | Encounter Summary ---
Author Organization [facility] Address [address] [place] [address] Care Team Providers Care Produce Runner Name Role Phone Benita Liu MD Primary Care Provider Unavaila ble Reason for Visit * Reason Onset Date Comments refill request 11/11/2018 Encounter Details Date Type Department Care Team Description 11/11/2018 Telephone Medicine/Pediatrics - [address] [phone] Benita Liu MD refill request Social History Tobacco Use Types Packs/Day Years Used Date Smoking Tobacco: Never Smokeless Tobacco: Never Alcohol Use Standard Drinks/Week Comments No 0 (1 standard drink = 0.6 oz pur e alcohol) Sex Assigned at Date Recorded Not on file documented as of this encounter Miscellaneous Notes * Telephone Encounter - Corie Harry PA-C - 11/11/2018 11:21 AM EDT Rx done * Telephone Encounter - Hallie TaylorPCarleenNCarleen - 11/11/2018 11:07 AM EDT Last filled 10/14/[address] UTD please review and sign * Telephone Encounter - Bernadette Bennett - 11/11/2018 11:02 AM EDT Patient would like script to be: E-PRESCRIBED/FAXED TO PHARMACY WHEN WAS THE PATIENT'S LAST APPOINTMENT IN ADULT MEDICINE? 07/09/18 WHEN WAS THE LAST TIME THE PATIENT SAW THEIR PCP? Same as above Does patient have an upcoming appointment? Yes 11/17/18 (THE MEDICATION REQUESTED IS ON THE MED LIST ABOVE) All of the medications requested were on the CURRENT MEDS list Did you check the Pharmacy information above?: YES Patient wants: 30 -day supply Is this a mail order prescription request ? NO If the refill is from a FAXED refill request what is the RX # listed on the fax? N/A Patients current insurance carrier is: Payor: WORKERS COMP / Plan: WORK[place] / Product Type: OTHER Insurance ID #: NO CLAIM NUMBER documented in this encounter Plan of Treatment Not on file documented as of this encounter Visit Diagnoses Diagnosis Anxiety Anxiety state, unspecified Intractable migraine without status migrainosus, unspecified migraine type documented in this encounter Care Teams Produce Runner Relationship Specialty Start Date End Date Benita Liu MD PCP - General Internal Medicine 09/12/15 documented as of this encounter
--- OUTSIDE RECORDS SUMMARY | 2024-11-10 13:31 | XMS_ITS | Encounter Summary ---
Author Organization [facility] Address [facility] [place] [address] Care Team Providers Care Pens And Pencils Dipper Name Role Phone Benita Liu MD Primary Care Provider Cong garcia Encounter Details Date Type Department Care Team Description 02/05/2019 [facility] Controlled Substance Contract Medical Records [address] [place] [id number] Abstract, Provider Social History Tobacco Use Types [...] on filedocumented in this encounter Care Teams Pens And Pencils Dipper Relationship Specialty Start Date End Date Benita Liu MD PCP - General Internal Medicine 09/12/15 documented as of this encounter
--- OUTSIDE RECORDS SUMMARY | 2024-11-10 13:31 | XMS_ITS | Encounter Summary ---
Author Organization [facility] Address [facility] [place] [address] Care Team Providers Care Dry Wall Finisher Name Role Phone Benita Liu MD Primary Care Provider Cong garcia Encounter Details Date Type Department Care Team Description 01/23/2017 Orders Only Medicine/Pediatrics - [address] [phone] Bill Bedolla PA-C Hyperkalemia (Primary Dx) Social [...] - 5.5 mEq/L 02/21/2017 2:04 PM EDT [facility] 02/21/2017 8:58 AM EDT 02/21/2017 8:59 AM EDT Bill Bedolla PA-C LAB [facility] [address] documented in this encounter Visit Diagnoses Diagnosis Hyperkalemia- Primary Hyperpotassemia documented in this encounter Care Teams Dry Wall Finisher Relationship Specialty Start Date End Date Benita Liu MD PCP - General Internal Medicine 09/12/15 documented as of this encounter
--- OUTSIDE RECORDS SUMMARY | 2024-11-10 13:31 | XMS_ITS | Encounter Summary ---
Author Organization [facility] Address [address] [place] [address] Care Team Providers Care Station Tender Name Role Phone Benita Liu MD Primary Care Provider Unavaila ble Reason for Visit * Reason Onset Date Comments Special Procedure 11/07/2020 Encounter Details Date Type Department Care Team Description 11/07/2020 Telephone Gastroenterology - [address] [place] [address] Azael Moeller MD [address] [place] [phone] Special Procedure Social History Tobacco Use Types [...] on filedocumented in this encounter Care Teams Station Tender Relationship Specialty Start Date End Date Benita Liu MD PCP - General Internal Medicine 09/12/15 documented as of this encounter
--- OUTSIDE RECORDS SUMMARY | 2024-11-10 13:31 | XMS_ITS | Encounter Summary ---
Author Organization [facility] Address [address] [place] [address] Care Team Providers Care Burn Crew Member Name Role Phone Benita Liu MD Primary Care Provider Unavaila ble Reason for Visit * Reason Onset Date Comments medication problems 05/25/2019 Encounter Details Date Type Department Care Team Description 05/25/2019 Telephone Medicine/Pediatrics - [address] [phone] Benita Liu MD medication problems Social History [...] on filedocumented in this encounter Care Teams Burn Crew Member Relationship Specialty Start Date End Date Benita Liu MD PCP - General Internal Medicine 09/12/15 documented as of this encounter
--- OUTSIDE RECORDS SUMMARY | 2024-11-10 13:31 | XMS_ITS | Encounter Summary ---
Author Organization [facility] Address [address] [place] [address] Phone Care Team Providers Care Extruder Operator Name Role Phone Unavailable Primary Care Provider Unavailabl e Encounter Details Date Type Department Care Team (Late st Contact Info) Description 04/15/2022 Telephone [facility] [address] [place] [address] Rene Nelson MD Social History [...] for guidance. Please call her back at [phone] Thank you documented in this encounter Plan of Treatment Not on file documented as of this encounter Visit Diagnoses Not on filedocumented in this encounter
--- OUTSIDE RECORDS SUMMARY | 2024-11-10 13:31 | XMS_ITS | Clinical Summary ---
Author Organization [facility] Address [address] [place] [address] Phone Care Team Providers Care Swim Coach Name Role Phone Unavailable Primary Care Provider [...] mg/dl PVNMA 05/02/2020 us Rtama Conversion LAB [id number] LICITED RESULTS Final Result PVNMA from Last 3 Months or Most Recently Relevant to Health Maintenance Insurance COMPREHENSIVE BENEFITS COMPREHENSIVE BENEFITS
--- OUTSIDE RECORDS SUMMARY | 2024-11-10 13:31 | XMS_ITS | Encounter Summary ---
Author Organization [facility] Address [facility] [place] [address] Care Team Providers Care Electro Winning Operator Name Role Phone Benita Liu MD Primary Care Provider Cong garcia Encounter Details Date Type Department Care Team Description 09/30/2017 Orders Only Medicine/Pediatrics - [address] [phone] Corie Harry PA-C Other screening mammogram Social [...] mammogram documented in this encounter Care Teams Electro Winning Operator Relationship Specialty Start Date End Date Benita Liu MD PCP - General Internal Medicine 09/12/15 documented as of this encounter
--- OUTSIDE RECORDS SUMMARY | 2024-11-10 13:31 | XMS_ITS | Encounter Summary ---
Author Organization [facility] Address [address] [place] [address] Phone Care Team Providers Care Golf Cart Repairer Name Role Phone Unavailable Primary Care Provider Unavailabl e Encounter Details Date Type Department Care Team (Late st Contact Info) Description 04/25/2022 Telephone [facility] [address] [place] [address] Rene Nelson MD Social History [...] labs done. Please advise Thank you CB# [phone] documented in this encounter Plan of Treatment Not on file documented as of this encounter Visit Diagnoses Not on filedocumented in this encounter
--- OUTSIDE RECORDS SUMMARY | 2024-11-10 13:31 | XMS_ITS | Encounter Summary ---
Author Organization [facility] Address [facility] [place] [address] Care Team Providers Care Publishing Agent Name Role Phone Benita Liu MD Primary Care Provider Cong garcia Encounter Details Date Type Department Care Team Description 12/03/2017 Release of Information Medical Records [address] [place] [id number] Abstract, Provider Social History Tobacco Use Types [...] on filedocumented in this encounter Care Teams Publishing Agent Relationship Specialty Start Date End Date Benita Liu MD PCP - General Internal Medicine 09/12/15 documented as of this encounter
--- OUTSIDE RECORDS SUMMARY | 2024-11-10 13:31 | XMS_ITS | Encounter Summary ---
Author Organization [facility] Address [facility] [place] [address] Care Team Providers Care Bag Bleacher Name Role Phone Benita Liu MD Primary Care Provider Cong garcia Encounter Details Date Type Department Care Team Description 09/17/2017 Manuscripts Curator Report Medical Records [address] [place] [address] Latia Garcia MD Social History Tobacco Use [...] on filedocumented in this encounter Care Teams Bag Bleacher Relationship Specialty Start Date End Date Benita Liu MD PCP - General Internal Medicine 09/12/15 documented as of this encounter
== END 2024-11-10 12:11 | disposition home or self-care (01) ==
LOC: HO.HMCC 11:27
PROVIDERS: PCP Internal Medicine; Visit Provider Internal Medicine
DX: E11.21 Type 2 diabetes mellitus with diabetic nephropathy (principal); F33.42 Major depressive disorder, recurrent, in full remission; Z79.4 Long term (current) use of insulin; E11.29 Type 2 diabetes mellitus with other diabetic kidney complication; E66.01 Morbid (severe) obesity due to excess calories; I10 Essential (primary) hypertension; F41.1 Generalized anxiety disorder; E78.9 Disorder of lipoprotein metabolism, unspecified; K21.9 Gastro-esophageal reflux disease without esophagitis; G44.89 Other headache syndrome; R80.9 Proteinuria, unspecified

== ENCOUNTER → 2024-11-10 11:27 | Outpatient (BNVA) | payer OTHER, SELFPAY | PROVIDERS: PCP Internal Medicine; Visit Provider Internal Medicine ==

== ENCOUNTER 2024-12-08 13:13 | Outpatient (AMB) | payer OTHER, SELFPAY ==
[2024-12-08 13:21] VITALS: BP 140/90; PULSE 70; TEMP 36.8; O2SAT 97; BMI 52.5
--- NOTE | 2024-12-08 13:21 | MHC.OFFWIV ---
Intake Vital Signs 12/08/24 13:21 Height 5 ft 2 in Weight 287 lb BMI 52.5 BP 140/90 H Blood Pressure Location Lt brachial Position Sitting Pulse 70 Pulse Source Pulse Oximeter Temp 98.2 F Temp Source Oral Pulse Oximetry (%) 97 Oxygen Delivery Method Room Air Intake Visit Reasons: EP Cough, mucus, sob Intake Note: Patient here for cough, mucus, headaches and SOB that has been present for about 3 days. Patient Tobacco Use Status: Never used Tobacco Allergies raspberry [Raspberry] Allergy (Mild, Verified 12/08/24 13:22) HIVES Do you need a note to return to daycare/school/sports/work: Yes HPI HPI Comments History of Present Illness Details History - The patient is a 54-year-old female presenting with cough and wheezing. - Symptoms started three days ago, with a severe productive cough following a similar illness in her family. - The cough is worsened by CPAP usage and ineffective to albuterol inhaler. - She reports a history of bronchitis, denies history of asthma or tobacco use, and has experienced headaches with cough. - 3 family members with similar symptoms, resolved without abx. family testing for flu, COVID-19, and RSV came back negative. - The patient uses Basaglar and Ozempic for diabetes management and experienced increased glucose levels with past steroid use. Physical Exam General: Cooperative, healthy appearing, comfortable and no acute distress Orientation/consciousness: Patient oriented x3 Limitations: No limitations Head: Normal to inspection Ears: Hearing grossly normal bilaterally, external ears normal and TM's normal bilaterally Nose: Normal external nose present, Normal nares present and No nasal discharge present Face and sinus: Normal facial exam and Yes sinuses nontender Mouth: Normal oral and palatal mucosa present and moist mucous membranes Throat: Yes tonsils normal, Yes uvula midline. Posterior oropharynx erythema Eyes: Appearance normal, both eyes and all related structures Neck: Normal visual inspection Respiratory: Slight wheeze in right lower lobe. Normal respiratory effort, able to speak in complete sentences, Actively coughing, no respiratory distress, not tachypneic, no tripod positioning and no use of accessory muscles. Cardiovascular: Regular rate and rhythm. Normal S1 and S2 Skin: No rashes or lesions noted Neuro: Patient oriented x3 Extremities: Normal to inspection and Yes no clubbing, cyanosis or edema [facility] Medical History Difficulty using continuous positive airway pressure (CPAP) full face mask Nocturnal hypoxemia BRENDA treated with BiPAP Morbid obesity HTN (hypertension) Rash Insulin dependent diabetes mellitus Surgical History Previous section History of back surgery Family History Father No problems noted. Mother HTN (hypertension) Maternal Grandfather Cancer Sister No problems noted. Social History Housing: House Alcohol intake: unknown Patient Tobacco Use Status: Never used Tobacco e-Cigarette/Vaping Use: Never Used service: No Current occupational status: employed Cognitive needs: No Hearing needs: No Vision needs: Yes Review of Systems Const All systems reviewed & are unremarkable except as noted in HPI and below Physical Exam Vital Signs: Last Vital Signs Temp 98.2 F 12/08/24 13:21 Pulse 70 12/08/24 13:21 BP 140/90 H 12/08/24 13:21 Pulse Ox 97 12/08/24 13:21 Oxygen Delivery Method Room Air 12/08/24 13:21 BMI result Body Mass Index 52.5 Assessment & Plan Assessment & Plan (1) URI, acute: Code(s): J06.9 - Acute upper respiratory infection, unspecified Plan: VSS, pt well appearing and PE unremarkable. To manage the acute viral upper respiratory infection, I will initiate prednisolone cautiously at 20 mg daily x5 days while advising a 5-10% increase in basal insulin dosage to mitigate steroid-induced hyperglycemia. However, I advised to see how the small dose of pred affects her glucose for a day before making any changes. Tessalon Perles 200 mg to manage the cough, potentially impacting rest, is recommended for use every eight hours sparingly. Flu, COVID-19, and RSV testing will be executed with results visible in the patient portal. I advise continuation of albuterol inhaler every six hours if plausible. The patient should adjust her CPAP use to aid symptoms and benefit from prescribed medications available at the specified [facility] and consider a potential work rest period. Patient was informed and verbally consented to the use of an ambient scribe for clinic note documentation during this visit Orders: Orders SARS-CoV2/FLU/RSV Today R09.89 - Other specified symptoms and signs involving the circulatory and respiratory systems Medications: New benzonatate 200 mg PO BEDTIME PRN 10 caps 0RF cough prednisone 20 mg PO QAM 5 tabs 0RF Coding Level of Care Code Est Pt Level 3 (70658) Diagnoses URI, acute J06.9
--- OUTSIDE RECORDS SUMMARY | 2024-12-08 15:18 | XMS_ITS | Encounter Summary ---
Author Organization [facility] Address [address] [place] [address] Care Team Providers Care Medical Staff Specialist Name Role Phone Benita Liu MD Primary Care Provider Unavaila ble Reason for Visit * Reason Onset Date Comments medication problems 05/25/2019 Encounter Details Date Type Department Care Team Description 05/25/2019 Telephone Medicine/Pediatrics - [address] [phone] Benita Liu MD medication problems Social History [...] on filedocumented in this encounter Care Teams Medical Staff Specialist Relationship Specialty Start Date End Date Benita Liu MD PCP - General Internal Medicine 09/12/15 documented as of this encounter
--- OUTSIDE RECORDS SUMMARY | 2024-12-08 15:18 | XMS_ITS | Encounter Summary ---
Author Organization [facility] Address [facility] [place] [address] Care Team Providers Care Excel Analyst Name Role Phone Benita Liu MD Primary Care Provider Cong garcia Encounter Details Date Type Department Care Team Description 09/14/2015 Release of Information Medical Records [address] [place] [id number] Abstract, Provider Social History Tobacco Use Types Packs/Day Years Used Date Smoking Tobacco: Never Assessed Sex Assigned at Date Recorded Not on file documented as of this encounter Plan of Treatment Not on file documented as of this encounter Visit Diagnoses Not on filedocumented in this encounter Care Teams Excel Analyst Relationship Specialty Start Date End Date Benita Liu MD PCP - General Internal Medicine 09/12/15 documented as of this encounter
--- OUTSIDE RECORDS SUMMARY | 2024-12-08 15:18 | XMS_ITS | Encounter Summary ---
Author Organization [facility] Address [address] [place] [address] Care Team Providers Care Seating Captain Name Role Phone Benita Liu MD Primary Care Provider Unavaila ble Reason for Visit * Reason Onset Date Comments refill request 11/11/2018 Encounter Details Date Type Department Care Team Description 11/11/2018 Telephone Medicine/Pediatrics - [address] [phone] Benita Liu MD refill request Social History [...] type documented in this encounter Care Teams Seating Captain Relationship Specialty Start Date End Date Benita Liu MD PCP - General Internal Medicine 09/12/15 documented as of this encounter
--- OUTSIDE RECORDS SUMMARY | 2024-12-08 15:18 | XMS_ITS | Encounter Summary ---
Author Organization [facility] Address [address] [place] [address] Phone Care Team Providers Care Asphalt Paver Operator Name Role Phone Unavailable Primary Care Provider Unavailabl e Encounter Details Date Type Department Care Team (Late st Contact Info) Description 04/25/2022 Telephone [facility] [address] [place] [address] Rene Nelson MD Social History [...] labs done. Please advise Thank you CB# [phone] documented in this encounter Plan of Treatment Not on file documented as of this encounter Visit Diagnoses Not on filedocumented in this encounter
--- OUTSIDE RECORDS SUMMARY | 2024-12-08 15:18 | XMS_ITS | Encounter Summary ---
Author Organization [facility] Address [facility] [place] [address] Care Team Providers Care Front Desk Manager Name Role Phone Benita Liu MD Primary Care Provider Cong garcia Encounter Details Date Type Department Care Team Description 11/13/2017 Principal Accounts Clerk Report Medical Records [address] [place] [address] Latia Garcia MD Social History Tobacco Use [...] on filedocumented in this encounter Care Teams Front Desk Manager Relationship Specialty Start Date End Date Benita Liu MD PCP - General Internal Medicine 09/12/15 documented as of this encounter
--- OUTSIDE RECORDS SUMMARY | 2024-12-08 15:18 | XMS_ITS | Clinical Summary ---
Author Organization [facility] Address [address] [place] [address] Care Team Providers Care Veneer Jointer Name Role Phone Benita Liu MD Primary Care Provider Unavaila ble Allergies No known active allergies Medications Medication Sig Dispensed Refills Start Date End Date Status ALBUTEROL SULFATE (PROAIR HFA) 108 (90 BASE) MCG/ACT Aero Soln Inhale 2 Puffs into the lungs every 4 hours as needed for Shortness of Breath. 1 Inhaler 5 07/30/2016 Active FREESTYLE LANCETS Misc Use to check blood glucose once daily 100 Each 0 10/11/2016 Active Blood Glucose Calibration (FREESTYLE CONTROL SOLUTION) Liquid Use to calibrate glucose meter as needed 1 Each 0 10/11/2016 Active FREESTYLE LITE strip Apply 1 Strip topically daily. 100 Strip 2 10/11/2016 Active nystatin (MYCOSTATIN) powder Apply to the affected areas 2 to 3 times daily until healing is complete 30 g 3 04/02/2018 Active hydrOXYzine (ATARAX) 25 MG tablet TAKE 1 TO 2 TABLETS BY MOUTH TWICE A DAY NEEDED FOR ANXIETY 60 Tab 0 04/06/2018 Active amitriptyline (ELAVIL) 25 MG tablet Take 1 Tab by mouth at bedtime. 90 Tab 1 07/09/2018 Active BD PEN NEEDLE LELE U/F 32G X 4 MM Misc Inject 1 Device into the skin daily. 200 Each 5 07/10/2018 Active atorvastatin (LIPITOR) 40 MG tablet Take 1 Tab by mouth daily. 90 Tab 5 07/10/2018 Active Blood Glucose Monitoring Suppl (FREESTYLE LITE) Device 1 Device by Does not apply route 2 times daily as needed (to test blood sugars as needed). 1 Device 0 07/14/2018 Active omeprazole (PRILOSEC) 20 MG capsule TAKE 1 CAPSULE BY MOUTH EVERY DAY 30 Cap 5 11/02/2018 Active [id number] -COD 58-720-06-30 MG OR CAPS (FIORICET WITH CODEINE) 05-054-97-30 MG per capsuleIndications:I ntractable migraine without status migrainosus, unspecified migraine type Take 1 capsule by mouth every 4 hours as needed for Migraine. 56 capsule 0 03/01/2019 Active citalopram (CELEXA) 40 MG tablet Take 1 Tab by mouth daily. 90 Tab 1 03/09/2019 Active propranolol (INNOPRAN XL) 80 MG 24 hr capsule Take 1 Cap by mouth at bedtime. 30 Cap 5 03/29/2019 Active Insulin Glargine (BASAGLAR KWIKPEN) 100 UNIT/ML Solution Pen-injector Inject 24 Units into the skin daily. 5 mL 1 05/14/2019 Active propranolol (INDERAL) 20 MG tablet Take 4 Tabs by mouth 2 times daily for 180 days. 240 Tab 5 05/25/2019 Active lisinopril (PRINIVIL,ZESTRIL) 40 MG tablet Take 1 Tab by mouth daily. 90 Tab 0 07/26/2019 Active lorazepam (ATIVAN) 1 MG tabletIndications:An xiety Take 1 Tab by mouth 2 times daily as needed for Anxiety. 56 Tab 0 08/30/2019 Active metformin (GLUCOPHAGE-XR) 500 MG 24 hr tablet Take 3 Tabs by mouth daily (with breakfast). 42 Tab 0 09/24/2019 Active Active Problems Problem Noted Date Pure hypercholesterolemia 06/13/2017 Gastroesophageal reflux disease without esophagitis 05/16/2017 Uncomplicated type 2 diabetes mellitus 0 10/11/2016 Migraine 12/21/2015 Hypertension 12/21/2015 Anxiety 12/21/2015 Bilateral shoulder pain 12/21/2015 Immunizations Name Administration Dates Next Due Influenza (> 6 Months) 05/28/2016 Influenza Vaccine-preservati ve Free-quadrivalent 4 Years 07/09/2018 Influenza Vaccine-quadrivalent 4 Years Plus 05/02 PPD-RBMG 11/19/2017 Family History Medical History Relation Name Comments Glaucoma Brother 3 Hypertension Brother 4 Sleep Disorder Brother 5 sleep apnea Cancer, Other Father stomach, esoph ageal CHF Maternal Grandmother Hypertension Maternal Grandmother Allergies Mother morphine, penic illin Hypertension Mother Relation Name Status Comments Brother 1 Alive sleep apnea, ?h tn Brother 2 (Age 40) dm Brother 3 Brother 4 Brother 5 Daughter Alive healthy Father (Age 50) cancer Maternal Grandfather (Age unknow n) Maternal Grandmother (Age 86) ch f Mother Alive copd, oxygen de pendent Paternal Grandfather (Age 70) em physema Paternal Grandmother (Age unknow n) Son Alive healthy Social History Tobacco Use Types Packs/Day Years Used Date Smoking Tobacco: Never Smokeless Tobacco: Never Alcohol Use Standard Drinks/Week Comments No 0 (1 standard drink = 0.6 oz pur e alcohol) Sex Assigned at Date Recorded Not on file Last Filed Vital Signs Vital Sign Reading Time Taken Comments Blood Pressure 132/84 02/17/2019 11:23 AM EDT Pulse 80 02/17/2019 11:23 AM EDT Temperature 37 ??C (98.6 ??F) 02/17/2019 11:23 AM EDT Respiratory Rate 16 02/03/2019 4:02 PM EDT Oxygen Saturation 95% 08/29/2016 1:10 PM EST Inhaled Oxygen Concentration - - Weight 122.5 kg (270 lb) 02/17/2019 11:23 AM EDT Height 153.7 cm (5' 0.5 ) 02/17/2019 11:23 AM ED T Body Mass Index 51.86 02/17/2019 11:23 AM EDT Plan of Treatment Health Maintenance Due Date Last Done Comments Covid-19 Vaccine (#1) 1969 HEPATITIS C SCREENING 1987 PNEUMOCOCCAL VACCINE FOR HIG H RISK PATIENTS (#1) 02/26/1988 BASELINE HEALTH EXAM 40-64 2009 DIABETES: ANNUAL URINE PROTE IN TEST (MICROALBUMIN) 01/21/2018 01/21/2017 DIABETES: ANNUAL FOOT EXAM 05/16/2018 05/16/2017 CERVICAL CANCER SCREENING 11/30/20182015 (External Completion of test per patient (Patient reports normal results)) COLON CANCER SCREENING 2019 SHINGLES VACCINE (1 of 2) 2019 DIABETES: BLOOD SUGAR CONTRO L TEST (HGBA1C) 05/06/2019 02/03/2019, 07/09/2018, 10/01/2017, Additional history exists MAMMOGRAM 10/22/2019 10/22/2018, 05/2018 (External Completion), 09/09/2017, Additional history exists DIABETES: ANNUAL EYE EXAM 11/06/2019 11/05/2018, DIABETES/HEART DISEASE: ALIZE TAM CHOLESTEROL (LDL) 02/04/2020 02/03/2019, 02/03/2019, 07/09/2018, Additional history exists BMI CHECK/ADVISE 09/01/2024 02/17/2019, 12/2018, 07/09/2018, Additional history exists DEPRESSION SCREENING/FOLLOWUP 09/01/2024, 03/01/2019, 02/03/2019, Additional history exists SOCIAL NEEDS SCREENING 09/01/2024 DTAP/TDAP/TD (2 - Td or Tdap) 01/30/2025 (External Completion of test per patient (Patient reports normal results)) INFLUENZA (Season Ended) 2025 018, 05/16/2017, 05/28/2016 Care Teams Veneer Jointer Relationship Specialty Start Date End Date Benita Liu MD PCP - General Internal Medicine 09/12/15
--- OUTSIDE RECORDS SUMMARY | 2024-12-08 15:18 | XMS_ITS | Encounter Summary ---
Author Organization [facility] Address [address] [place] [address] Phone Care Team Providers Care Culturist Name Role Phone Unavailable Primary Care Provider Unavailabl e Encounter Details Date Type Department Care Team (Late st Contact Info) Description 04/15/2022 Telephone [facility] [address] [place] [address] Rene Nelson MD Social History [...] for guidance. Please call her back at [phone] Thank you documented in this encounter Plan of Treatment Not on file documented as of this encounter Visit Diagnoses Not on filedocumented in this encounter
--- OUTSIDE RECORDS SUMMARY | 2024-12-08 15:18 | XMS_ITS | Encounter Summary ---
Author Organization [facility] Address [address] [place] [address] Care Team Providers Care Treatment Technician Name Role Phone Benita Liu MD Primary Care Provider Unavaila ble Reason for Visit * Reason Onset Date Comments Special Procedure 11/07/2020 Encounter Details Date Type Department Care Team Description 11/07/2020 Telephone Gastroenterology - [address] [place] [address] Azael Moeller MD [address] [place] [address] Special Procedure Social History Tobacco Use Types [...] on filedocumented in this encounter Care Teams Treatment Technician Relationship Specialty Start Date End Date Benita Liu MD PCP - General Internal Medicine 09/12/15 documented as of this encounter
--- OUTSIDE RECORDS SUMMARY | 2024-12-08 15:18 | XMS_ITS | Encounter Summary ---
Author Organization [facility] Address [facility] [place] [address] Care Team Providers Care Trimming Caser Name Role Phone Benita Liu MD Primary Care Provider Cong garcia Encounter Details Date Type Department Care Team Description 01/20/2017 Orders Only Medicine/Pediatrics - [address] [phone] Bill Bedolla PA-C Hyperkalemia (Primary Dx) Social [...] - 5.5 mEq/L 01/21/2017 12:56 PM EDT [facility] 01/21/2017 8:56 AM EDT 01/21/2017 8:56 AM EDT Bill Bedolla PA-C LAB [facility] [employer] [address] documented in this encounter Visit Diagnoses Diagnosis Hyperkalemia- Primary Hyperpotassemia documented in this encounter Care Teams Trimming Caser Relationship Specialty Start Date End Date Benita Liu MD PCP - General Internal Medicine 09/12/15 documented as of this encounter
--- OUTSIDE RECORDS SUMMARY | 2024-12-08 15:18 | XMS_ITS | Encounter Summary ---
Author Organization [facility] Address [facility] [place] [address] Care Team Providers Care Bpm Analyst Name Role Phone Benita Liu MD Primary Care Provider Cong garcia Encounter Details Date Type Department Care Team Description 12/03/2017 Release of Information Medical Records [address] [place] [id number] Abstract, Provider Social History Tobacco Use Types [...] on filedocumented in this encounter Care Teams Bpm Analyst Relationship Specialty Start Date End Date Benita Liu MD PCP - General Internal Medicine 09/12/15 documented as of this encounter
--- OUTSIDE RECORDS SUMMARY | 2024-12-08 15:18 | XMS_ITS | Clinical Summary ---
Author Organization [facility] Address [address] [place] [address] Phone Care Team Providers Care Retail Training Manager Name Role Phone Unavailable Primary Care Provider [...] Diabetes: Visual Foot Exam 09/29/2020 Influenza Vaccine (Season Ended) 2025 07/09/2018, 05/16/2017, 05/28/2016 Procedures Procedure Name Priority Date/Time [...] mg/dl PVNMA 05/02/2020 us Rtama Conversion LAB [id number] LICITED RESULTS Final Result PVNMA from Last 3 Months or Most Recently Relevant to Health Maintenance Insurance COMPREHENSIVE BENEFITS COMPREHENSIVE BENEFITS
--- OUTSIDE RECORDS SUMMARY | 2024-12-08 15:18 | XMS_ITS | Encounter Summary ---
Author Organization [facility] Address [facility] [place] [address] Care Team Providers Care Laborer Petroleum Refinery Name Role Phone Benita Liu MD Primary Care Provider Cong garcia Encounter Details Date Type Department Care Team Description 10/28/2017 Language Pathologist Report Medical Records [address] [place] [address] Latia Garcia MD Social History Tobacco Use [...] on filedocumented in this encounter Care Teams Laborer Petroleum Refinery Relationship Specialty Start Date End Date Benita Liu MD PCP - General Internal Medicine 09/12/15 documented as of this encounter
--- OUTSIDE RECORDS SUMMARY | 2024-12-08 15:18 | XMS_ITS | Encounter Summary ---
Author Organization [facility] Address [facility] [place] [address] Care Team Providers Care Plant Health Manager Name Role Phone Benita Liu MD Primary Care Provider Cong garcia Encounter Details Date Type Department Care Team Description 02/05/2019 PNO Controlled Substance Contract Medical Records [address] [place] [id number] Abstract, Provider Social History Tobacco Use Types [...] on filedocumented in this encounter Care Teams Plant Health Manager Relationship Specialty Start Date End Date Benita Liu MD PCP - General Internal Medicine 09/12/15 documented as of this encounter
--- OUTSIDE RECORDS SUMMARY | 2024-12-08 15:18 | XMS_ITS | Encounter Summary ---
Author Organization [facility] Address [address] [place] [address] Care Team Providers Care Acds Block 1 Operator Name Role Phone Benita Liu MD Primary Care Provider Cong garcia Encounter Details Date Type Department Care Team Description 02/24/2019 [facility] Medical Records [address] [place] [address] Abstract, Provider Social History Tobacco Use Types [...] on filedocumented in this encounter Care Teams Acds Block 1 Operator Relationship Specialty Start Date End Date Benita Liu MD PCP - General Internal Medicine 09/12/15 documented as of this encounter
--- OUTSIDE RECORDS SUMMARY | 2024-12-08 15:18 | XMS_ITS | Encounter Summary ---
Author Organization [facility] Address [facility] [place] [address] Care Team Providers Care Coke Crusher Operator Name Role Phone Benita Liu MD Primary Care Provider Cong garcia Encounter Details Date Type Department Care Team Description 09/17/2017 [facility] Solution Architect Report Medical Records [address] [place] [id number] Latia Garcia MD Social History Tobacco Use [...] on filedocumented in this encounter Care Teams Coke Crusher Operator Relationship Specialty Start Date End Date Benita Liu MD PCP - General Internal Medicine 09/12/15 documented as of this encounter
== END 2024-12-08 13:41 | disposition home or self-care (01) ==
PROVIDERS: PCP Internal Medicine; Visit Provider Physician Assistant
DX: J06.9 Acute upper respiratory infection, unspecified (principal)

== ENCOUNTER 2024-12-08 13:13 | Outpatient (REF) | payer OTHER, SELFPAY ==
--- OUTSIDE RECORDS SUMMARY | 2024-12-08 15:37 | XMS_ITS | Encounter Summary ---
Author Organization [facility] Address [address] [place] [address] Care Team Providers Care Training Technician Name Role Phone Benita Liu MD Primary Care Provider Unavaila ble Reason for Visit * Reason Onset Date Comments Letter 08/30/2019 Encounter Details Date Type Department Care Team Description 08/30/2019 Telephone Medicine/Pediatrics - [address] [phone] Benita Liu MD Letter Social History Tobacco Use Types Packs/Day Years Used Date Smoking Tobacco: Never Smokeless Tobacco: Never Alcohol Use Standard Drinks/Week Comments No 0 (1 standard drink = 0.6 oz pur e alcohol) Sex Assigned at Date Recorded Not on file documented as of this encounter Miscellaneous Notes * Telephone Encounter - Isabel Christensen - 08/30/2019 11:05 AM EST Left vm for patient that a release is needed. * Telephone Encounter - Hallie TaylorPCarleenNCarleen - 08/30/2019 10:20 AM EST Needs to sign a release * Telephone Encounter - Isabel Christensen - 08/30/2019 9:53 AM EST Patient calling in states she would like a current copy of her medications mailed to Her home address on file. documented in this encounter Plan of Treatment Not on file documented as of this encounter Visit Diagnoses Not on filedocumented in this encounter Care Teams Training Technician Relationship Specialty Start Date End Date Benita Liu MD PCP - General Internal Medicine 09/12/15 documented as of this encounter
--- OUTSIDE RECORDS SUMMARY | 2024-12-08 15:37 | XMS_ITS | Encounter Summary ---
Author Organization [facility] Address [facility] [place] [address] Care Team Providers Care Chief Clerk Name Role Phone Benita Liu MD Primary Care Provider Cong garcia Encounter Details Date Type Department Care Team Description 09/30/2017 Orders Only Medicine/Pediatrics - [address] [phone] Corie Harry PA-C Other screening mammogram Social [...] mammogram documented in this encounter Care Teams Chief Clerk Relationship Specialty Start Date End Date Benita Liu MD PCP - General Internal Medicine 09/12/15 documented as of this encounter
--- OUTSIDE RECORDS SUMMARY | 2024-12-08 15:38 | XMS_ITS | Encounter Summary ---
Author Organization [facility] Address [address] [place] [address] Care Team Providers Care Inspector Tester Sorter Name Role Phone Benita Liu MD Primary Care Provider Unavaila ble Reason for Visit * Reason Onset Date Comments Testing 08/30/2016 Ct Scan Chest Encounter Details Date Type Department Care Team Description 08/30/2016 Telephone Medicine/Pediatrics - [address] [phone] Benita Liu MD Testing (Ct Scan Chest) Social History Tobacco Use Types Packs/Day Years Used Date Smoking Tobacco: Never Alcohol Use Standard Drinks/Week Comments No 0 (1 standard drink = 0.6 oz pur e alcohol) Sex Assigned at Date Recorded Not on file documented as of this encounter Miscellaneous Notes * Telephone Encounter - Iliana Brown - 08/30/2016 4:[address] Scan Chest Denied Does not meet guidelines. If you would like to speak with a Livestock Breeder you may call [phone] Case # [id number] Thanks, Iliana Purdy Auth Dept. documented in this encounter Plan of Treatment Not on file documented as of this encounter Visit Diagnoses Not on filedocumented in this encounter Care Teams Inspector Tester Sorter Relationship Specialty Start Date End Date Benita Liu MD PCP - General Internal Medicine 09/12/15 documented as of this encounter
--- OUTSIDE RECORDS SUMMARY | 2024-12-08 15:38 | XMS_ITS | Encounter Summary ---
Author Organization [facility] Address [facility] [place] [address] Care Team Providers Care Teller Vault Name Role Phone Benita Liu MD Primary Care Provider Cong garcia Encounter Details Date Type Department Care Team Description 12/27/2015 Controlled Substance Contract with Plan Medical Records [address] [place] [id number] Abstract, Provider Social History Tobacco Use Types [...] on filedocumented in this encounter Care Teams Teller Vault Relationship Specialty Start Date End Date Benita Liu MD PCP - General Internal Medicine 09/12/15 documented as of this encounter
--- OUTSIDE RECORDS SUMMARY | 2024-12-08 15:38 | XMS_ITS | Encounter Summary ---
Author Organization [facility] Address [facility] [place] [address] Care Team Providers Care Paint Dipper Name Role Phone Benita Liu MD Primary Care Provider Cong garcia Encounter Details Date Type Department Care Team Description 03/22/2016 STEP DOWN SPECIALIST/[facility] Report Medical Records [address] [place] [address] Benita Liu MD Social History Tobacco Use [...] on filedocumented in this encounter Care Teams Paint Dipper Relationship Specialty Start Date End Date Benita Liu MD PCP - General Internal Medicine 09/12/15 documented as of this encounter
[2024-12-08 17:57] LABS: Influenza A PCR NEGATIVE (Negative); Influenza B PCR NEGATIVE (Negative); Resp Syncy Virus RNA Qual PCR NEGATIVE (Negative); SARS COV2 PCR INHOUSE NEGATIVE (Negative)
== END 2024-12-08 13:14 | disposition home or self-care (01) ==
LOC: HO.LAB 13:13
PROVIDERS: PCP Internal Medicine; Visit Provider Physician Assistant
DX: J06.9 Acute upper respiratory infection, unspecified (principal); R09.89 Other specified symptoms and signs involving the circulatory and respiratory systems
CPT/HCPCS: 0241U

== ENCOUNTER 2025-02-10 07:41 | Outpatient (REF) | payer OTHER, SELFPAY ==
[2025-02-10 10:06] LABS: MANUAL DIFF FLAG NO
[2025-02-10 10:14] LABS: Basophils Absolute Auto 0.1 X10*3/uL (0.0-0.2); Eosinophils Absolute Auto 0.3 X10*3/uL (0.0-0.4); Hematocrit 36.8 % (37.0-47.0); Hemoglobin 12.4 g/dl (12.0-16.0); Imm Gran Abs Auto 0.03 X10*3/uL (0.00-0.03); Imm Gran Pct Auto 0.6 % (0.0-0.4); Lymphocytes Absolute Auto 1.3 X10*3/uL (1.2-4.9); Lymphocytes Percent Auto 26.3 % (20-40); Mean Corpuscular HGB Conc 33.7 g/dl (31.0-35.0); Mean Corpuscular Hemoglobin 32.4 pg (27.0-33.0); Mean Corpuscular Volume 96.1 fL (80.0-98.0); Mean Platelet Volume 10.7 fL (9.4-12.3); Monocytes Absolute Auto 0.3 X10*3/uL (0.1-1.2); Monocytes Percent Auto 6.8 % (2-11); Neutrophils Absolute Auto 2.9 x10*3/uL (2.0-8.3); Neutrophils Percent Auto 59.3 % (45-73); Platelet Count 154 X10*3/uL (160-400); Red Blood Count 3.83 X10*6/uL (4.20-5.50); Red Cell Distribution Width 12.6 % (11.0-16.0); White Blood Count 4.9 X10*3/uL (4.8-10.8)
[2025-02-10 10:21] LABS: Appearance Urine Clear; Color Urine Yellow; Glucose Urine UA Negative (Negative); Leukocyte Esterase Urine Negative (Negative); Nitrite Urine Negative (Negative); UMIC TRIGGER UA YES; Urine Blood Negative (Negative); Urine Ketones Negative (Negative); Urine Protein 100 (2+) mg/dL (Neg-Trace)
[2025-02-10 10:25] LABS: Estimated Average Glucose 174 mg/dL; Hemoglobin A1c % 7.7 % (<6.0)
[2025-02-10 10:28] LABS: Bacteria Urine Trace (None Seen); Hyaline Casts Urine 0-2 /LPF (0-2); RBC Urine 0-2 /HPF (0-2); Squamous Epithelial Cell Urine 0-2 /HPF (0-2); WBC Urine 0-5 /HPF (0-5)
[2025-02-10 10:32] LABS: Anion Gap 14 (12-20)
[2025-02-10 10:40] LABS: Alanine Aminotransferase 43 U/L (0-31); Albumin Level 4.3 g/dL (3.5-5.0); Alkaline Phosphatase 108 U/L (39-117); Aspartate Amino Transferase 66 U/L (5-31); Bilirubin Total 0.5 mg/dL (0.0-1.0); Blood Urea Nitrogen 8 mg/dL (9-16); Calcium 9.3 mg/dL (8.4-10.2); Carbon Dioxide 23 mmol/L (22-29); Chloride 100 mmol/L (96-108); Cholesterol 212 mg/dL (<200); Estimated Glomerular Filt Rate > 60; Glucose Fasting 186 mg/dL (60-99); Glucose Random 185 mg/dL (60-115); HDL Cholesterol 70 mg/dL (>40); LDL Cholesterol Calculated 103 mg/dL (<100); Potassium 4.6 mmol/L (3.3-5.1); Sodium 132 mmol/L (135-145); Total Protein 7.5 g/dL (6.5-8.0); Triglycerides 197 mg/dL (<150)
[2025-02-10 10:42] LABS: TSH reflex Free T4 1.02 uIU/mL (0.32-4.0)
[2025-02-10 10:51] LABS: Total Protein Urine Random 94 mg/dL (<12)
[2025-02-10 10:52] LABS: Creatinine Urine 32.56 mg/dL
[2025-02-10 11:04] LABS: Microalbum/Creatinine Ratio Ur 2257.3 ug/mg cr (<30)
== END 2025-02-10 07:42 | disposition home or self-care (01) ==
LOC: HO.HMGCLDS 07:41
PROVIDERS: PCP Internal Medicine; Referring Provider Internal Medicine Hypertension Specialist; Visit Provider Internal Medicine
DX: E87.1 Hypo-osmolality and hyponatremia (principal); G44.89 Other headache syndrome; K21.9 Gastro-esophageal reflux disease without esophagitis; E11.21 Type 2 diabetes mellitus with diabetic nephropathy; Z79.4 Long term (current) use of insulin; E13.9 Other specified diabetes mellitus without complications; F33.42 Major depressive disorder, recurrent, in full remission; E78.9 Disorder of lipoprotein metabolism, unspecified; F41.1 Generalized anxiety disorder; I10 Essential (primary) hypertension; E11.29 Type 2 diabetes mellitus with other diabetic kidney complication; R80.9 Proteinuria, unspecified; E66.01 Morbid (severe) obesity due to excess calories; G47.33 Obstructive sleep apnea (adult) (pediatric)
CPT/HCPCS: 36415; 80048; 80053; 80061; 81001; 82043; 82570; 83036; 84156; 84300; 84443; 85025

== ENCOUNTER 2025-02-11 07:55 | Outpatient (AMB) | payer OTHER, SELFPAY ==
--- NOTE | 2025-02-11 08:00 | MHC.PC.OV ---
Vital Signs 02/11/25 08:02 Height 5 ft 2 in Weight 291 lb 2 oz BMI 53.2 BP 126/76 Blood Pressure Location Rt brachial Position Sitting Pulse 71 Pulse Source Pulse Oximeter Temp 98.1 F Temp Source Oral Pulse Oximetry (%) 98 Oxygen Delivery Method Room Air Intake Visit Reasons: dm,bp,anxiety follow up Allergies raspberry [Raspberry] Allergy (Mild, Verified 02/11/25 08:03) HIVES Medication List - Last Reconciled 02/11/25 by Cara Byers MD albuterol sulfate 90 mcg/actuation 1 inh inhalation QID PRN 30 days amlodipine-benazepril 5-20 mg 1 cap PO DAILY citalopram 40 mg PO DAILY 90 days clotrimazole-betamethasone 1-0.05 % 1 appl topical ONCE 30 days [CPAP machine Full face mask F 20 with pressure setting 18/12 cm H2O. Please provide bi-level devise 18/12 cm H2O resmed aircurve 2 V auto.] fluticasone propionate 50 mcg/actuation (Flonase Allergy Relief) 1 spray intranasal BID 30 days gabapentin 300 mg PO TID insulin glargine (Basaglar KwikPen U-100 Insulin) 60 units (0.6 mL) subcut BID lancets (FreeStyle Lancets) As directed lidocaine 5% 1 patch topical DAILY lorazepam 1 mg PO ONCE PRN 90 days nystatin 1 appl topical DAILY PRN omeprazole 20 mg PO DAILY 90 days pen needle, diabetic (Easy Comfort Pen Marks) B.i.d. propranolol ER 60 mg PO DAILY 90 days semaglutide (Ozempic) 2 mg subcut QWEEK simvastatin 40 mg PO BEDTIME 90 days Tobacco use date assessed: 02/11/25 Dental Screening Dental Screen Date: 02/11/25 Did you have a dental visit in the last 12 months?: Yes Did you have a dental problem in the last 6 months where you did not have access to dental care?: No Was dental information given to patient?: Patient has dentist HPI dm,bp,anxiety follow up HPI Details History - The patient is a 54-year-old female presenting with management issues related to diabetes mellitus. Patient has a history of sleep apnea, morbid obesity, diabetic neuropathy Albuminuria which is getting worse, anxiety and depression, hypertension, lipid disorder, allergies, GERD, headache syndrome - The patient reports experiencing problems with blood sugar control, with a recent hemoglobin A1c of 7.7%. She noted that her fasting sugar was 186. - The patient reports difficulty tolerating Ozempic due to nausea, and mentions that despite not feeling hungry, she is not losing weight. - The patient reported liver enzyme elevation on recent lab tests, noting that both enzymes are elevated this time compared to just one in September. - She expressed concerns regarding kidney function and proteinuria, with recent labs showing significant protein loss in urine, a change from 2021 when there was no protein detected. - She reported mild swelling in the ankles, which the patient associated with kidney issues or other possible causes such as vascular insufficiency. - She has low sodium levels of 132, similar to previous measurements, and severely low Vitamin D levels. - The patient experiences numbness and tingling in the right foot, using gabapentin occasionally for these symptoms. - The patient's blood pressure is stable Medical History: - Type 2 Diabetes Mellitus - Hypertension - Sleep Apnea - Depression/Anxiety - Elevated Liver Enzymes - Hyperlipidemia - Peripheral Neuropathy related to Diabetes - Vitamin D Deficiency - Proteinuria with early chronic kidney disease Social History: - The patient works at [employer] Medications - Amlodipine (Hypertension) - Benazepril (Hypertension) - Citalopram (Depression/Anxiety) from clinic - CPAP (Sleep Apnea) - Insulin, long-acting, 60 units twice daily (Diabetes) - Ozempic, 2 mg weekly (Diabetes) - Lorazepam (Anxiety) - Omeprazole (Gastric reflux) from clinic - Propranolol (Hypertension) from clinic - Simvastatin (Hyperlipidemia) from clinic - Gabapentin (as needed for neuropathy) Problem List - Type 2 Diabetes Mellitus - Hypertension - Peripheral Neuropathy - Proteinuria - Vitamin D Deficiency - Sleep Apnea - Depression - anxiety - lipid disorder - LFT - morbid obesity - albuminuria Diagnostic results - Labs: Hemoglobin A1c 7.7%; fasting blood sugar 186; sodium 132; elevated liver enzymes - Labs: Proteinuria with urine protein levels over 2000 - Vitamin D level below 4 [place] of Care - Dr. Francisco for pulmonary care - Kidney care by Dr. Nelson - Anticipated transition to endocrinology [facility] - Previous pain management with Dr. Loaiza - Medications filled at [facility] Pharmacy Patient Instructions - Start Vitamin D supplements [id number]. - Discuss ongoing medication issues with Dr. Nelson. - Monitor for significant ankle swelling and report as needed. - Ensure good blood sugar control to manage kidney health. - Use gabapentin as needed for neuropathy symptoms. At night only - lorazepam was refilled earlier - continue other medications Review of Systems General: No fever no chills neurological: No headaches no dizziness ear nose throat: No sore throat no hearing difficulty no ear pain cardiovascular: No syncope, no chest pain, no palpitations gastrointestinal: No vomiting or diarrhea endocrine: No polyuria polydipsia no heat intolerance genitourinary: No dysuria skin: No new complaints Physical Exam general: No acute distress HEENT: No acute findings neck: Supple respiratory system: Able to talk in full sentences, no audible wheeze no stridor cardiovascular: S1-S2 RRR gastrointestinal: No pain extremities: No ankle swelling at this time RISK PROFESSIONAL: Alert awake oriented x3 motor sensory intact skin: Normal turgor [facility] Medical History Difficulty using continuous positive airway pressure (CPAP) full face mask Nocturnal hypoxemia BRENDA treated with BiPAP Morbid obesity HTN (hypertension) Rash Insulin dependent diabetes mellitus Surgical History Previous section History of back surgery Family History Father No problems noted. Mother HTN (hypertension) Maternal Grandfather Cancer Sister No problems noted. Social History Housing: House Alcohol intake: unknown Patient Tobacco Use Status: Never used Tobacco e-Cigarette/Vaping Use: Never Used service: No Current occupational status: employed Cognitive needs: No Hearing needs: No Vision needs: Yes Questionnaire PHQ-9 Over the last 2 weeks, how often have you been bothered by any of the following problems? 1. Little interest or pleasure in doing things: not at all 2. Feeling down, depressed, or hopeless: not at all 3. Trouble falling or staying asleep, or sleeping too much: not at all 4. Feeling tired or having little energy: not at all 5. Poor appetite or overeating: not at all 6. Feeling bad about yourself - or that you are a failure or have let yourself or your family down: not at all 7. Trouble concentrating on things, such as reading the newspaper or watching television: not at all 8. Moving or speaking so slowly that other people could have noticed. Or the opposite - being so fidgety or restless that you have been moving around a lot more than usual: not at all 9. Thoughts that you would be better off or of hurting yourself in some way: not at all Total score: 0 Depression Screening Interpretation: Negative Depression Screening Done: Yes [id number] - PHQ-9 Billing: Yes Source: Developed by Drs. Zaheer Suazo, Thee Weeks and colleagues, with an educational esa from [employer]. Thrive Questionnaire Date Thrive assessed: 02/11/25 I am a: Patient What is your living situation today?: I have a steady place to live Within the past 12 months, did the food you bought not last and you didn't have the money to get more?: Never true Within the past 12 months, did you worry whether your food would run out before you got money to buy more?: Never true Do you have trouble paying for medicines?: No Do you have trouble getting transportation to medical appointments?: No Do you have trouble paying your heating and electricity bill?: No Do you have trouble taking care of your child, family member or friend?: No Do you have trouble with day-to-day activities such as bathing, preparing meals, shopping, managing finances, etc.?: No Are you currently unemployed and looking for a job?: No Are you interested in more education?: No Please select the resources that you would like help with: None Currently or been in a relationship where the following occur: No concerns reported THRIVE Score: 0 AUDIT C Alcohol Use Questionnaire (AUDIT-C) 1. How often do you have a drink containing alcohol?: Monthly or less 2. How many drinks containing alcohol do you have on a typical day when you are drinking?: 1 or 2 3. How often do you have six or more drinks on one occasion?: Never Total Score: 1 Score Reviewed/Action Taken: Yes SARAH-7 AMB Questionnaire SARAH-7 Date SARAH - 7 assessed: 02/11/25 (patient declined) Source: Developed by Drs. Zaheer Suazo, Thee Weeks and colleagues, with an educational esa from [employer]. Physical exam (Primary Care) Vital Signs: Last Vital Signs Temp 98.1 F 02/11/25 08:02 Pulse 71 02/11/25 08:02 BP 126/76 02/11/25 08:02 Pulse Ox 98 02/11/25 08:02 Oxygen Delivery Method Room Air 02/11/25 08:02 BMI result Body Mass Index 53.2 Tobacco/Smoking Status: Tobacco use Status Tobacco use date assessed 02/11/25 02/11/25 08:09 Patient Tobacco Use Status Never used Tobacco 02/11/25 08:09 e-Cigarette/Vaping Use Never Used 02/11/25 08:09 PHQ-9: PHQ-9 Score PHQ-9: Total score 0 02/11/25 08:45 Depression Screening Interpretation: Negative Thrive Assessment: Date of Thrive Assessment Date Thrive assessed 02/11/25 02/11/25 08:29 Currently or been in a relationship where the following occur: No concerns reported Coding Level of Care Code Est Pt Level 5 (25602) Diagnoses Hypertension, essential I10 Anxiety, generalized F41.1 Lipid disorder E78.9 Recurrent major depressive disorder, in full remission F33.42 Active/Remission status: in full remission Diabetes 1.5, managed as type 1 E13.9 predatory animal exterminator (current) use of insulin Z79.4 Diabetic nephropathy with proteinuria E11.21 Chronic GERD K21.9 Headache syndrome G44.89 Microalbuminuria due to type 2 diabetes mellitus E11.29; R80.9 Morbid obesity E66.01 BRENDA treated with BiPAP G47.33 Additional Codes PHQ-9 - 89391 - PHQ-9 Billing: Yes ([id number]) Time Spent (min) 40 Comment Reviewing chart/labs/sqgf-gj-uyrm/coordination of care Assessment & Plan Assessment & Plan (1) Hypertension, essential: Code(s): I10 - Essential (primary) hypertension Category: Medical (2) Anxiety, generalized: Code(s): F41.1 - Generalized anxiety disorder Category: Medical (3) Lipid disorder: Code(s): E78.9 - Disorder of lipoprotein metabolism, unspecified Category: Medical (4) Depression, major, recurrent: Code(s): F33.9 - Major depressive disorder, recurrent, unspecified Category: Medical Qualifiers: Active/Remission status: in full remission Qualified Code(s): F33.42 - Major depressive disorder, recurrent, in full remission (5) Diabetes 1.5, managed as type 1: Code(s): E13.9 - Other specified diabetes mellitus without complications Category: Medical (6) retirement (current) use of insulin: Code(s): Z79.4 - predatory animal exterminator (current) use of insulin Category: Medical (7) Diabetic nephropathy with proteinuria: Code(s): E11.21 - Type 2 diabetes mellitus with diabetic nephropathy Category: Medical (8) Chronic GERD: Code(s): K21.9 - Gastro-esophageal reflux disease without esophagitis Category: Medical (9) Headache syndrome: Code(s): G44.89 - Other headache syndrome Category: Medical (10) Microalbuminuria due to type 2 diabetes mellitus: Code(s): E11.29 - Type 2 diabetes mellitus with other diabetic kidney complication; R80.9 - Proteinuria, unspecified Category: Medical (11) Morbid obesity: Comment: BMI=51.6 Code(s): E66.01 - Morbid (severe) obesity due to excess calories Category: Medical (12) BRENDA treated with BiPAP: Comment: HAS SEVERE OBSTRUCTIVE SLEEP APNEA WITH NOCTURNAL HYPOXEMIA. SUBJECTIVELY MUCH IMPROVED WITH THE USE OF BIPAP, HAS THE DISCOMFORT WITH THE CURRENT FULLFACE MASK, AND THERE IS SOME AIR LEAK. SHE IS VERY COMPLIANT AND USING THE BIPAP, AND DEFINITELY BENEFITING. Code(s): G47.33 - Obstructive sleep apnea (adult) (pediatric) Category: Medical Plan History - The patient is a 54-year-old female presenting with management issues related to diabetes mellitus. Patient has a history of sleep apnea, morbid obesity, diabetic neuropathy Albuminuria which is getting worse, anxiety and depression, hypertension, lipid disorder, allergies, GERD, headache syndrome - The patient reports experiencing problems with blood sugar control, with a recent hemoglobin A1c of 7.7%. She noted that her fasting sugar was 186. - The patient reports difficulty tolerating Ozempic due to nausea, and mentions that despite not feeling hungry, she is not losing weight. - The patient reported liver enzyme elevation on recent lab tests, noting that both enzymes are elevated this time compared to just one in September. - She expressed concerns regarding kidney function and proteinuria, with recent labs showing significant protein loss in urine, a change from 2021 when there was no protein detected. - She reported mild swelling in the ankles, which the patient associated with kidney issues or other possible causes such as vascular insufficiency. - She has low sodium levels of 132, similar to previous measurements, and severely low Vitamin D levels. - The patient experiences numbness and tingling in the right foot, using gabapentin occasionally for these symptoms. - The patient's blood pressure is stable Medical History: - Type 2 Diabetes Mellitus - Hypertension - Sleep Apnea - Depression/Anxiety - Elevated Liver Enzymes - Hyperlipidemia - Peripheral Neuropathy related to Diabetes - Vitamin D Deficiency - Proteinuria with early chronic kidney disease Social History: - The patient works at [employer] Medications - Amlodipine (Hypertension) - Benazepril (Hypertension) - Citalopram (Depression/Anxiety) from clinic - CPAP (Sleep Apnea) - Insulin, long-acting, 60 units twice daily (Diabetes) - Ozempic, 2 mg weekly (Diabetes) - Lorazepam (Anxiety) - Omeprazole (Gastric reflux) from clinic - Propranolol (Hypertension) from clinic - Simvastatin (Hyperlipidemia) from clinic - Gabapentin (as needed for neuropathy) Problem List - Type 2 Diabetes Mellitus - Hypertension - Peripheral Neuropathy - Proteinuria - Vitamin D Deficiency - Sleep Apnea - Depression - anxiety - lipid disorder - LFT - morbid obesity - albuminuria Diagnostic results - Labs: Hemoglobin A1c 7.7%; fasting blood sugar 186; sodium 132; elevated liver enzymes - Labs: Proteinuria with urine protein levels over 2000 - Vitamin D level below 4 [place] of Care - Dr. Francisco for pulmonary care - Kidney care by Dr. Nelson - Anticipated transition to endocrinology [facility] - Previous pain management with Dr. Loaiza - Medications filled at [facility] Pharm[facility] Patient Instructions - Start Vitamin D supplements [id number]. - Discuss ongoing medication issues with Dr. Nelson. - Monitor for significant ankle swelling and report as needed. - Ensure good blood sugar control to manage kidney health. - Use gabapentin as needed for neuropathy symptoms. At night only - lorazepam was refilled earlier - continue other medications Medications: Changed From gabapentin 300 mg PO TID 90 caps 1RF To gabapentin 300 mg PO .qhs 90 caps 0RF neuropathy Refilled citalopram 40 mg PO DAILY 90 tabs 0RF 90 days
[2025-02-11 08:02] VITALS: BP 126/76; PULSE 71; TEMP 36.7; O2SAT 98; BMI 53.2
== END 2025-02-11 08:26 | disposition home or self-care (01) ==
LOC: HO.HMCC 07:56
PROVIDERS: PCP Internal Medicine; Visit Provider Internal Medicine
DX: E11.21 Type 2 diabetes mellitus with diabetic nephropathy (principal); Z79.4 Long term (current) use of insulin; E11.29 Type 2 diabetes mellitus with other diabetic kidney complication; E66.01 Morbid (severe) obesity due to excess calories; Z68.43 Body mass index [BMI] 50.0-59.9, adult; I10 Essential (primary) hypertension; F41.1 Generalized anxiety disorder; E78.9 Disorder of lipoprotein metabolism, unspecified; F33.42 Major depressive disorder, recurrent, in full remission; K21.9 Gastro-esophageal reflux disease without esophagitis; G44.89 Other headache syndrome; R80.9 Proteinuria, unspecified

== ENCOUNTER → 2025-02-11 07:55 | Outpatient (BNVA) | payer OTHER, SELFPAY | PROVIDERS: PCP Internal Medicine; Visit Provider Internal Medicine | DX: E11.40 Type 2 diabetes mellitus with diabetic neuropathy, unspecified (principal); E11.29 Type 2 diabetes mellitus with other diabetic kidney complication; E11.21 Type 2 diabetes mellitus with diabetic nephropathy; G47.30 Sleep apnea, unspecified; E66.01 Morbid (severe) obesity due to excess calories; I10 Essential (primary) hypertension; F41.1 Generalized anxiety disorder; E78.9 Disorder of lipoprotein metabolism, unspecified; F33.42 Major depressive disorder, recurrent, in full remission; R80.9 Proteinuria, unspecified; K21.9 Gastro-esophageal reflux disease without esophagitis; G44.89 Other headache syndrome; G47.33 Obstructive sleep apnea (adult) (pediatric); Z68.43 Body mass index [BMI] 50.0-59.9, adult; Z79.4 Long term (current) use of insulin | CPT/HCPCS: 96127 ==

== ENCOUNTER 2025-02-21 09:49 | Outpatient (AMB) | payer OTHER, SELFPAY ==
--- NOTE | 2025-02-21 09:55 | HO.NEPHOV ---
Vital Signs 02/21/25 09:56 02/21/25 10:16 Height 5 ft 2 in Weight 297 lb BMI 54.3 BP 156/72 H 132/70 Blood Pressure Location Rt brachial Lt brachial Position Sitting Sitting Pulse 83 Pulse Source Pulse Oximeter Pulse Oximetry (%) 93 Oxygen Delivery Method Room Air Intake Visit Reasons: 4mon follow-up Program Developer Required: No Accompanied by: Self / Same As Patient Allergies raspberry (Raspberry) Allergy (Mild, Verified 02/21/25 09:57) HIVES Medication List - Last Reconciled 02/21/25 by Rene Nelson MD albuterol sulfate 90 mcg/actuation 1 inh inhalation QID PRN 30 days amlodipine-benazepril 5-20 mg 1 cap PO DAILY citalopram 40 mg PO DAILY 90 days clotrimazole-betamethasone 1-0.05 % 1 appl topical ONCE 30 days [CPAP machine Full face mask F 20 with pressure setting 18/12 cm H2O. Please provide bi-level devise 18/12 cm H2O resmed aircurve 2 V auto.] fluticasone propionate 50 mcg/actuation (Flonase Allergy Relief) 1 spray intranasal BID 30 days gabapentin 300 mg PO .qhs insulin glargine (Basaglar KwikPen U-100 Insulin) 60 units (0.6 mL) subcut BID lancets (FreeStyle Lancets) As directed lidocaine 5% 1 patch topical DAILY lorazepam 1 mg PO ONCE PRN 90 days nystatin 1 appl topical DAILY PRN omeprazole 20 mg PO DAILY 90 days pen needle, diabetic (Easy Comfort Pen [place]) B.i.d. propranolol ER 60 mg PO DAILY 90 days semaglutide (Ozempic) 2 mg subcut QWEEK simvastatin 40 mg PO BEDTIME 90 days HPI Comments Details: Karen is a pleasant 53 yr old woman with a h/o HTN and DM in a setting of elevated BMI Here for follow up regarding her HTN Renal function has been stable She is on Ozempic and lost about 10 lbs. 09/03/2024. Tele visit today. She took her medication but did not have her breakfast. She not feeling well in and she was unable to come to the office She has not lost any further weight with Ozempic 02/21/25 54-year-old female presenting with hypertension management and evaluation of edema. She reports experiencing puffy hands and ankles intermittently, which she associates with her current medication regimen. She is currently on amlodipine and benazepril for blood pressure control. The patient also presents with obesity, having gained weight despite being on Ozempic for weight management. She reports no significant weight loss, unlike her peers, and experiences nausea which affects her appetite. Her weight has increased from 271 pounds a year ago to 297 pounds currently. Additionally, the patient has a history of hyperglycemia, with a recent increase in A1c levels despite medication adherence. She is on a regimen of Ozempic, but reports minimal dietary intake due to nausea. The patient also reports a vitamin D deficiency [facility] Medical History Difficulty using continuous positive airway pressure (CPAP) full face mask Nocturnal hypoxemia BRENDA treated with BiPAP Morbid obesity HTN (hypertension) Rash Insulin dependent diabetes mellitus Surgical History Previous section History of back surgery Family History Father No problems noted. Mother HTN (hypertension) Maternal Grandfather Cancer Sister No problems noted. Social History Housing: House Alcohol intake: unknown Patient Tobacco Use Status: Never used Tobacco e-Cigarette/Vaping Use: Never Used service: No Current occupational status: employed Cognitive needs: No Hearing needs: No Vision needs: Yes Physical Exam Vital Signs: Last Vital Signs Pulse 83 02/21/25 09:56 BP 156/72 H 02/21/25 09:56 Pulse Ox 93 02/21/25 09:56 Oxygen Delivery Method Room Air 02/21/25 09:56 BMI result Body Mass Index 54.3 Const General: comfortable Nutritional Appearance: well nourished Orientation/consciousness: patient oriented x3 HEENT Head: No normal to inspection Mouth: moist mucous membranes Neck Neck: Yes supple and Yes no JVD Resp Auscultation: clear to auscultation bilaterally, no rales and rub present Cardio Jugular venous distension: no JVD Palpation: no palpable S3 and no palpable S4 Heart sounds: no rubs GI Palpation (GI): Soft to palpation and nontender Percussion: No Fluid wave present General: Yes no CVA tenderness Back/Spine/Pelvis Back: no CVA tenderness Skin General skin exam: no rashes or lesions noted Neuro General: patient oriented x3 Extrem General: Yes no pedal edema and No clubbing Results Reviewed Nephrology Results: Hgb, (12.0-16.0) 12.4 g/dl 02/10/25 WBC, (4.8-10.8) 4.9 X10*3/uL 02/10/25 Plt Count, (160-400) 154 X10*3/uL L 02/10/25 Sodium, (135-145) 132 mmol/L L 02/10/25 Potassium, (3.3-5.1) 4.6 mmol/L 02/10/25 Chloride, (96-108) 100 mmol/L 02/10/25 Carbon Dioxide, (22-29) 23 mmol/L 02/10/25 BUN, (9-16) 8 mg/dL L 02/10/25 Creatinine, (0.5-1.4) 0.85 mg/dL 02/10/25 Calcium, (8.4-10.2) 9.3 mg/dL 02/10/25 Urine Protein, (Neg-Trace) 100 (2+) mg/dL H 02/10/25 Urine Creatinine 32.56 mg/dL 02/10/25 Renal US 06/14/21 Assessment & Plan Assessment & Plan (1) Microalbuminuria due to type 2 diabetes mellitus: Code(s): E11.29 - Type 2 diabetes mellitus with other diabetic kidney complication; R80.9 - Proteinuria, unspecified Category: Medical (2) Hypertension, essential: Code(s): I10 - Essential (primary) hypertension Category: Medical Plan 54 yr old woman with HTN and DM in a setting of elevated BMI of 50 and microabluminuria Renal function is normal at baseline Goal is to maintain BP < 130/80 She will benefit from weight loss Follow up with Endocrine Maintain A1C < 7% Continue JANNET inhibition Low salt diet Mild hyponatremia. Due to SSRI Restrict hypotonic fluids Add Lasix 20mg PO PRN for edema Orders: Orders Basic Metabolic Panel 6 Months I10 - Essential (primary) hypertension Medications: New cholecalciferol (vitamin D3) 25 mcg PO DAILY 90 caps 1RF furosemide (Lasix) 20 mg PO DAILY PRN 30 tabs 2RF edema Coding Level of Care Code Est Pt Level 4 (46334) Diagnoses Microalbuminuria due to type 2 diabetes mellitus E11.29; R80.9 Hypertension, essential I10
[2025-02-21 09:56] VITALS: BP 156/72; PULSE 83; O2SAT 93; BMI 54.3
[2025-02-21 10:16] VITALS: BP 132/70
== END 2025-02-21 10:10 | disposition home or self-care (01) ==
LOC: HO.HKA 09:50
PROVIDERS: PCP Internal Medicine; Visit Provider Internal Medicine Hypertension Specialist
DX: E11.29 Type 2 diabetes mellitus with other diabetic kidney complication (principal); R80.9 Proteinuria, unspecified; I10 Essential (primary) hypertension
CPT/HCPCS: 99214

== ENCOUNTER → 2025-02-21 09:49 | Outpatient (BNVA) | payer OTHER, SELFPAY | PROVIDERS: PCP Internal Medicine; Visit Provider Internal Medicine Hypertension Specialist | DX: E11.65 Type 2 diabetes mellitus with hyperglycemia (principal); E11.29 Type 2 diabetes mellitus with other diabetic kidney complication; I10 Essential (primary) hypertension; Z76.89 Persons encountering health services in other specified circumstances; E66.01 Morbid (severe) obesity due to excess calories; R80.9 Proteinuria, unspecified; Z68.43 Body mass index [BMI] 50.0-59.9, adult; Z83.3 Family history of diabetes mellitus; Z79.4 Long term (current) use of insulin | CPT/HCPCS: 82947 ==

== ENCOUNTER 2025-02-21 10:13 | Outpatient (AMB) | payer OTHER, SELFPAY ==
[2025-02-21 10:17] VITALS: BP 138/72; PULSE 80; O2SAT 94; BMI 54.6
--- NOTE | 2025-02-21 10:17 | MHC.OFFVIS ---
Vital Signs 02/21/25 10:17 Height 5 ft 2 in Weight 298 lb 8.094 oz BMI 54.6 BP 138/72 Blood Pressure Location Lt brachial Position Sitting Pulse 80 Pulse Source Pulse Oximeter Pulse Oximetry (%) 94 Oxygen Delivery Method Room Air Intake Visit Reasons: Type 2 diabetes mellitus with other diabetic kidn Intake Note: New patient present today for Type 2 Diabetes Mellitus Last Diabetic eye exam: 12/2023 Last Podiatry Visit: Doens't have one Random Glucose: 189 mg/dl HgA1C: 7.7% 02/10/25 Early Childhood Educator Aide Required: No Accompanied by: Self / Same As Patient Allergies raspberry (Raspberry) Allergy (Mild, Verified 02/21/25 10:21) HIVES Medication List - Last Reconciled 02/21/25 by Erinn Jimenez PA-C albuterol sulfate 90 mcg/actuation 1 inh inhalation QID PRN 30 days amlodipine-benazepril 5-20 mg 1 cap PO DAILY cholecalciferol (vitamin D3) 25 mcg PO DAILY citalopram 40 mg PO DAILY 90 days clotrimazole-betamethasone 1-0.05 % 1 appl topical ONCE 30 days [CPAP machine Full face mask F 20 with pressure setting 18/12 cm H2O. Please provide bi-level devise 18/12 cm H2O resmed aircurve 2 V auto.] fluticasone propionate 50 mcg/actuation (Flonase Allergy Relief) 1 spray intranasal BID 30 days furosemide (Lasix) 20 mg PO DAILY PRN gabapentin 300 mg PO .qhs lancets (FreeStyle Lancets) As directed lidocaine 5% 1 patch topical DAILY lorazepam 1 mg PO ONCE PRN 90 days nystatin 1 appl topical DAILY PRN omeprazole 20 mg PO DAILY 90 days pen needle, diabetic (Easy Comfort Pen [place]) B.i.d. propranolol ER 60 mg PO DAILY 90 days simvastatin 40 mg PO BEDTIME 90 days HPI HPI Type 2 diabetes mellitus with other diabetic kidn: Details: Patient is a 54-year-old female with a significant past medical history of morbid obesity, hypertension, hyperlipidemia, BRENDA, chronic kidney disease and diabetes presenting today to establish care regarding her diabetes. Endo: Dm-was diagnosed with diabetes around 2008. Upon review of her chart it is listed that she is a type 1.5 diabetic however I did review the previous consult note from Dahlia Abarca which indicates that she is a type 2 diabetic. She tells me today that she was diagnosed only ever has a type 2 diabetic.. Her most recent A1c is 7.7 She is currently managed on Ozempic 2 mg weekly, Lantus 60 units twice a day, -she has not lost any weight despite being on Ozempic. In the past she tried metformin has made her sick, she thinks she took a dose of trulicity in the past and it was ineffective. She states that her family has a history of type 1 diabetes. CV: Blood pressure today in the office is 132/70. She on amlodipine/benazepril 5/20 mg, Lasix 20 mg and propranolol 60 mg daily. Cholesterol is managed with simvastatin 40 mg. Nephro: Follows with Nephrology closely. Was told that she does need to lose weight, control her blood pressure and blood sugars. She does avoid NSAIDs. [facility] Medical History (Updated 02/21/25 @ 10:36 by Erinn Jimenez PA-C) Difficulty using continuous positive airway pressure (CPAP) full face mask Nocturnal hypoxemia BRENDA treated with BiPAP Morbid obesity HTN (hypertension) Rash Insulin dependent diabetes mellitus Surgical History Previous section History of back surgery Family History Father No problems noted. Mother HTN (hypertension) Maternal Grandfather Cancer Sister No problems noted. Social History Housing: House Alcohol intake: unknown Patient Tobacco Use Status: Never used Tobacco e-Cigarette/Vaping Use: Never Used service: No Current occupational status: employed Cognitive needs: No Hearing needs: No Vision needs: Yes Physical Exam Vital Signs: Last Vital Signs Pulse 80 02/21/25 10:17 BP 138/72 02/21/25 10:17 Pulse Ox 94 02/21/25 10:17 Oxygen Delivery Method Room Air 02/21/25 10:17 BMI result Body Mass Index 54.6 Const Orientation/consciousness: patient oriented x3 HEENT Ears: hearing grossly normal bilaterally Neck Thyroid: Thyroid normal Lymphatic: no lymphadenopathy noted Resp Auscultation: clear to auscultation bilaterally Cardio Rate: regular rate Rhythm: regular rhythm Heart sounds: S1 normal heart sound present and S2 normal heart sound present Skin General skin exam: no rashes or lesions noted Neuro General: patient oriented x3, gait normal and no focal motor deficits Results Reviewed Results Reviewed: Laboratory Last Values Glucose (Clinic) 189 mg/dL (60-115) H 02/21/25 10:23 Laboratory Tests 02/10/25 02/10/25 07:48 07:55 Sodium 132 L Potassium 4.6 Chloride 100 Carbon Dioxide 23 Anion Gap 14 BUN 8 L Creatinine 0.85 Estimated GFR > 60 Random Glucose 185 H Hemoglobin A1c % 7.7 H AST 66 H ALT 43 H Triglycerides 197 H Cholesterol 212 H LDL Cholesterol, Calc 103 H HDL Cholesterol 70 U Random Total Protein 94 H Ur Random Sodium 92.0 Urine Creatinine 32.56 Urine Microalbumin 735.0 Microalb/Creat Ratio 2257.3 H Assessment & Plan Assessment & Plan (1) Uncontrolled type 2 diabetes mellitus with hyperglycemia, with long-term current use of insulin: Code(s): E11.65 - Type 2 diabetes mellitus with hyperglycemia; Z79.4 - [facility] (current) use of insulin Category: Medical Plan: spent 70 mins in face to face time today disucssing the pathophysiology of diabetes, differences between t1dm and t2dm, complications associated with dm including but not limited to blindness, kidney disesase, infections, increased risks of cvas, mis et., and signs and symptoms of hyper/hypoglycemia that would require emergent medical treatment. continue current basaglar dosing She has used humalog prn in the past. I did refill this today as she will be closely monitoring glucose with cgm d/c ozempic due to significant nausea, no weight loss and start mounjaro 2.5 mg weekly. discussed risks benefits and adverse effects start jardiance. check labs in 2-3 weeks. discussed risks and benefits and adverse effects like increased urinary frequency, urgency, UTIs, yeast infections reviewed rule of 15s. sent glucose tabs ordered testing supples (she has been using her husbands). Tapgage shari downloaded today for pt. sensor applied. reviewed how to use the sensor dm labs ordered to confirm t2dm (sandra strong told her she was a t2dm) offered referral to dm education follow up in 3-4 weeks (2) Hypertension, essential: Code(s): I10 - Essential (primary) hypertension Category: Medical Plan: wnl continue current plan (3) Microalbuminuria due to type 2 diabetes mellitus: Code(s): E11.29 - Type 2 diabetes mellitus with other diabetic kidney complication; R80.9 - Proteinuria, unspecified Category: Medical Plan: follows with nephrology [id number] ordered on acei on gpl1 Orders: Orders Islet Cell Antibody Scrn/Titer Today E11.29 - Type 2 diabetes mellitus with other diabetic kidney complication, E11.65 - Type 2 diabetes mellitus with hyperglycemia, I10 - Essential (primary) hypertension, R80.9 - Proteinuria, unspecified, Z79.4 - intermediate manager (current) use of insulin C Peptide Today E11.29 - Type 2 diabetes mellitus with other diabetic kidney complication, E11.65 - Type 2 diabetes mellitus with hyperglycemia, I10 - Essential (primary) hypertension, R80.9 - Proteinuria, unspecified, Z79.4 - [facility] (current) use of insulin Glutamic acid decarboxylase Ab Today E11.29 - Type 2 diabetes mellitus with other diabetic kidney complication, E11.65 - Type 2 diabetes mellitus with hyperglycemia, I10 - Essential (primary) hypertension, R80.9 - Proteinuria, unspecified, Z79.4 - [facility] (current) use of insulin Basic Metabolic Panel Today E11.29 - Type 2 diabetes mellitus with other diabetic kidney complication, E11.65 - Type 2 diabetes mellitus with hyperglycemia, R80.9 - Proteinuria, unspecified, Z79.4 - [facility] (current) use of insulin Medications: New blood sugar diagnostic (Datamuch Ultra Test strips) Use BID As directed to monitor blood glucose 100 ea 3RF glucose (Dex4 Glucose) until symptoms of low blood sugar are controlled 16 grams (4 x 4 gram) PO Q15M PRN 100 tabs 0RF hypoglycemia glucagon 3 mg/actuation 3 mg intranasal ONCE PRN 1 ea 0RF hypoglycemia tirzepatide (Mounjaro) for 4 weeks 2.5 mg (0.5 mL) subcut QWEEK 2 mL 3RF empagliflozin (Jardiance) 10 mg PO QAM 90 tabs 0RF insulin lispro (Humalog KwikPen (U-100) Insulin) 5 units (0.05 mL) subcut TID 15 mL 2RF blood-glucose sensor (FreeStyle Jason 3 Plus Sensor device) Use daily As directed to monitor glucose 2 ea 5RF E08.29 - Diabetes mellitus due to underlying condition with other diabetic kidney complication, R80.9 - Proteinuria, unspecified, Z79.4 - [facility] (current) use of insulin lancets (OneTouch UltraSoft 2 Lancet) use 2 x daily As directed to monitor blood sugars 100 ea 2RF E11.65 - Type 2 diabetes mellitus with hyperglycemia, Z79.4 - intermediate manager (current) use of insulin blood-glucose meter (OneTouch Ultra2 Meter) Use 2 x daily As directed to monitor blood sugars. 1 ea 0RF Changed From insulin glargine (Basaglar KwikPen U-100 Insulin) 60 units (0.6 mL) subcut BID 15 mL 0RF To insulin glargine (Basaglar KwikPen U-100 Insulin) 60 units (0.6 mL) subcut BID 36 mL 2RF 30 days Coding Level of Care Code New Pt Level 5 (69176) Complex EM visit Add On G2211 Diagnoses Uncontrolled type 2 diabetes mellitus with hyperglycemia, with long-term current use of insulin E11.65; Z79.4 Hypertension, essential I10 Microalbuminuria due to type 2 diabetes mellitus E11.29; R80.9
[2025-02-21 10:27] LABS: Glucose, Whole Blood 189 mg/dL (60-115)
== END 2025-02-21 11:18 | disposition home or self-care (01) ==
LOC: HO.ENCR 10:14
PROVIDERS: PCP Internal Medicine; Visit Provider Physician Assistant
DX: E11.65 Type 2 diabetes mellitus with hyperglycemia (principal); Z79.4 Long term (current) use of insulin; I10 Essential (primary) hypertension; E11.29 Type 2 diabetes mellitus with other diabetic kidney complication; R80.9 Proteinuria, unspecified

== ENCOUNTER 2025-05-14 12:17 | Outpatient (REF) | payer OTHER, SELFPAY ==
--- NOTE | ~2025-05-14 | XR_ITS ---
EXAMINATION: XR SHOULDER 2 OR MORE VIEWS RIGHT HISTORY: M25.511 - Pain in right shoulder COMPARISON: There are no prior studies available for comparison. FINDINGS: Three views of the right shoulder are submitted. Osseous mineralization is normal. There is no fracture or dislocation. The glenohumeral joint is maintained. There is moderate degenerative change of the AC joint with joint space narrowing and osteophyte formation. The soft tissues are unremarkable. 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 Electronically signed by: Zaheer Curry MD 05/16/2025 07:40 AM EDT
--- OUTSIDE RECORDS SUMMARY | 2025-05-14 12:20 | XMS_ITS | Clinical Summary ---
Author Organization [facility] Address [address] [place] [address] Phone Care Team Providers Care Sort Manager Name Role Phone Unavailable Primary Care [...] 12/21/2015 Migraine 12/21/2015 Shoulder pain 12/21/2015 Immunizations Immunization Administration Dates Next Due Influenza TIV (IM) [...] Last Done Comments Breast Cancer Screening 1970 Hepatitis B Vaccine (1 of 3 - 19+ 3-dose series) 02/26/1988 Pneumococcal Vaccine: 50+ Ye ars (1 of 2 - PCV) 02/26/1988 Colorectal Cancer Screening: Annual FOBT 2018 Colorectal Cancer Screening: Colonoscopy 2018 Colorectal Cancer Screening: Sigmoidoscopy 2018 Diabetes: Hemoglobin A1C 09/29/2020 05/02/2020 Diabetes: Ophthalmology Exam 09/29/2020 Diabetes: Pedal Pulse Checked 09/29/2020 Diabetes: Sensory Foot Exam 09/29/2020 Diabetes: Visual Foot Exam 09/29/2020 Influenza Vaccine (#1) 2025 8, 05/16/2017, 05/28/2016 Procedures Procedure Name Priority [...] mg/dl PVNMA 05/02/2020 us Rtama Conversion LAB [id number] LICITED RESULTS Final Result PVNMA from Last 3 Months or Most Recently Relevant to Health Maintenance Insurance Comprehensive Benefits Comprehensive Benefits
--- OUTSIDE RECORDS SUMMARY | 2025-05-14 12:21 | XMS_ITS | Clinical Summary ---
Author Organization [facility] Address [address] [place] [address] Phone Care Team Providers Care Technical Applications Scientist Name Role Phone Cara Byers MD Primary Care Provider [phone] Allergies No known active allergies Medications lisinopril (PRINIVIL,ZESTRI L) 40 MG tablet Take 40 mg by mouth. 07/26/20 19 Active LORazepam (ATIVAN) 1 MG tablet Take 1 mg by mouth. 08/30/20 19 Active propranoloL (INDERAL LA) 60 mg 24 hr capsule Take 60 mg by mouth. 03/29/20 19 Active albuterol 90 mcg/actuation inhaler INHALE 1 PUFF 4 TIMES DAILY NEEDED FOR SHORTNESS OF BREATH OR WHEEZING 09/26/19 22 Active citalopram (CELEXA) 40 MG tablet Take 40 mg by mouth daily. 09/18/19 22 Active fluticasone propionate (FLONASE) 50 mcg/actuation nasal spray SHAKE LIQUID AND USE 1 SPRAY IN EACH NOSTRIL TWICE DAILY 08/16/20 21 Active insulin lispro (ADMELOG, HUMALOG) 100 unit/mL injection vial Inject 5 Units under the skin. 5 units if BG > 170 08/29/20 21 Active simvastatin (ZOCOR) 40 MG tablet Take 40 mg by mouth. 05/24/20 21 Active omeprazole (PRILOSEC) 20 MG capsule Take 20 mg by mouth daily. Active amLODIPine-benaz epril (LOTREL 5-20) 5-20 mg per capsule Take 1 capsule by mouth daily. Active FREESTYLE LITE METER meter kitIndications:T ype 2 diabetes mellitus with diabetic nephropathy, with long-term current use of insulin Use as instructed 1 kit 09/19/19 24 Active lidocaine (LIDODERM) 5 % Place 1 patch onto the skin daily. 01/28/20 24 Active gabapentin (NEURONTIN) 300 MG capsule Take 300 mg by mouth 3 (three) times a day. As needed 12/10/19 24 Active FREESTYLE LITE Strp stripsIndication s:Type 2 diabetes mellitus with diabetic nephropathy, with long-term current use of insulin 1 each by Miscellaneous route 2 (two) times a day. 200 strip 1 02/13/20 24 Active OZEMPIC 2 mg/dose (8 mg/3 mL) subcutaneous injection penIndications:T ype 2 diabetes mellitus with diabetic nephropathy, with long-term current use of insulin Inject 2 mg under the skin every 7 days. 9 mL 07/26/20 24 Active insulin glargine (LANTUS SOLOSTAR U-100 INSULIN) 100 unit/mL (3 mL) InPn injection penIndications:T ype 2 diabetes mellitus with diabetic nephropathy, with long-term current use of insulin INJECT 60 UNITS UNDER THE SKIN TWICE DAILY DIRECTED 45 mL 1 10/22/19 25 Active Active Problems Problem Noted Date Diagnosed Date Type 2 diabetes mellitus wit h diabetic nephropathy, with long-term current use of insulin 10/31/2021 Assessment & Plan (02/13/2024 11:23 AM EDT): Controlled. Hemoglobin A1c 6.5% continue current regimen no changes required. Assessment & Plan (09/19/2023 11:57 AM EST): Uncontrolled based on hemoglobin A1c of 10.0 but based on her glycemic levels she is not doing badly now that she is getting Ozempic and she has received the last 3 doses so I am not can make any changes she will return for follow-up in 3 months but she needs to bring in her meter monitor more frequently so I can get an idea of her glycemic levels today. Assessment & Plan (06/13/2022 9:23 AM EDT): Improved glycemic control hemoglobin A1c down to 7.1%. I am going to increase Ozempic to 2 mg and decrease the Basaglar to 50 units twice a day. If she finds that she is having hypoglycemia she should decrease the Basaglar to 40 units twice a day. She should repeat her hemoglobin A1c. Freestyle manjeet 3 CGM was ordered. The patient was given a sample of Ozempic lot number [id number], expiration 02/28/2023. Assessment & Plan (10/31/2021 4:03 PM EST): Uncontrolled. Hemoglobin A1c is 11.5%, please change Basaglar ministration to 60 units twice a day. Start taking Ozempic 0.25 mg weekly for 4 weeks then 0.5 mg weekly for 4 weeks and then 1 mg weekly thereafter. The patient has no contraindications to the use of Ozempic such as medullary thyroid carcinoma pancreatitis. She was advised that this medication is associated with nausea, vomiting, diarrhea, constipation. The only way she is going to know if she tolerates it is to try. Since she is not using Humalog then she should not continue using it for now. Of course this may change in the future. She should follow-up within 3 months time. Hyperlipidemia LDL goal <100 10/31/2021 Assessment & Plan (02/13/2024 11:25 AM EDT): Controlled. LDL 90 mg/dL continue simvastatin 20. Assessment & Plan (09/19/2023 11:56 AM EST): I do not have LDL level because it could not be calculated due to high triglycerides I ordered direct LDL and repeat lipid panel she should continue simvastatin 40 Assessment & Plan (06/13/2022 9:21 AM EDT): Controlled. LDL 77 mg/dL on simvastatin 40. Assessment & Plan (10/31/2021 4:01 PM EST): Controlled. LDL 77 mg/dL on simvastatin 40 mg daily. No changes required. Family History Medical History Relation Comments Cancer Father COPD Mother Hypertension Mother Relation Status Comments Father Mother Social History Tobacco Use Types Packs/Day Years Used Date Smoking Tobacco: Never Smokeless Tobacco: Never Alcohol Use Standard Drinks/Week Comments Yes 0 (1 standard drink = 0.6 oz pur e alcohol) occasionally Education Answer Date Recorded Are you interested in more education? Not on simón e 12/26/2022 Are you concerned about learning? Not on file 12/26/2022 No 12/26/2022 No 12/26/2022 Digital Access Answer Date Recorded No 01/25/2023 No 01/25/2023 Reliable internet access at home? Not on file 01/25/2023 Device with a working camera? Not on file Comments Unknown Sex and Gender Information Value Date Recorded Sex Assigned at Not on file Legal Sex Female 9:04 AM EDT Gender Identity Not on file Sexual Orientation Not on file Last Filed Vital Signs Vital Sign Reading Time Taken Comments Blood Pressure 130/74 02/13/2024 10:54 AM EDT Pulse 65 02/13/2024 10:54 AM EDT Temperature 37.6 C (99.6 F) 06/11/2020 9:24 AM EDT Respiratory Rate 18 06/11/2020 9:24 AM EDT Oxygen Saturation 97% 02/13/2024 10:54 AM EDT Inhaled Oxygen Concentration - - Weight 126.6 kg (279 lb) 02/13/2024 10:54 AM EDT Height 157.5 cm (5' 2.01 ) 02/13/2024 10:54 AM E DT Body Mass Index 51.02 02/13/2024 10:54 AM EDT Plan of Treatment Health Maintenance Due Date Last Done Comments Adult Td,Tdap Booster 1969 DEPRESSION SCREENING 1981 HEPATITIS C SCREENING 1987 HIV ONE-TIME SCREENING (18-65 YEARS) 1987 PAP SMEAR 1990 MAMMOGRAM 2009 COLOGUARD 2014 COLONOSCOPY 2014 COLORECTAL CANCER SCREENING 2014 FIT TEST 2014 FOBT 2014 SIGMOIDOSCOPY 2014 VIRTUAL COLONOSCOPY 2014 ZOSTER VACCINES (1 of 2) 2019 PNEUMOCOCCAL VACCINES (50+ years) (2 of 2 - PCV) 10/14/2020 10/14/2019 DIABETIC EYE EXAM 10/31/2021 HEMOGLOBIN A1C 01/31/2022 10/31/2021 BLOOD PRESSURE 08/14/2024 02/13/2024 CREATININE LEVEL 02/11/2025 02/12/2024, , 06/04/2022, Additional history exists POTASSIUM LEVEL 02/11/2025 02/12/2024 INFLUENZA VACCINE (#1) 2025 0, 08/16/2019, 07/09/2018, Additional history exists COVID-19 VACCINE ( season) 2025 12/22/2020, 11/24/2020 SMOKING STATUS SCREENING (Once After 26 Yrs) Completed 02/13/2024 HEPATITIS A VACCINES Aged Out No long er eligible based on patient's age to complete this topic HIB VACCINES Aged Out No longer eligi ble based on patient's age to complete this topic MENINGOCOCCAL VACCINES (ACWY) Aged Out No longer eligible based on patient's age to complete this topic MENINGOCOCCAL VACCINES (B) Aged Out N o longer eligible based on patient's age to complete this topic Medical Devices Not on file Procedures Procedure Name Priority Date/Time Associated Diagnosis Comments BASIC METABOLIC PANEL Routine 02/12/2024 11:03 AM EDT POCT HEMOGLOBIN A1C Routine 10/31/2021 4 :31 PM EST Type 2 diabetes mellitus with diabetic nephropathy, with long-term current use of insulin from Last 3 Months or Most Recently Relevant to Health Maintenance Results * Basic metabolic panel (02/12/2024 11:03 AM EDT) Historical Provider LAB BLOOD ORDERABLES Thalia l Result * (ABNORMAL) POCT Hemoglobin A1c (10/31/2021 4:31 PM EST) Hemoglobin A1c 11.5(A) 4.2 - 5.8 % Other 10/31/2021 4:31 PM EST Hernandez Hartman DO POINT OF CARE TEST ORDERABLES Fi nal Result from Last 3 Months or Most Recently Relevant to Health Maintenance Insurance [facility] BLUE BENEFITS ADMINISTRATORS [employer] Member Subscriber Plan / Payer ( fective 2019-Present) Name:Karen Ferrell Relation to Subscriber:Self Name:Karen Ferrell Payer ID:[id number] ([facility]) Type:PPO Address: [address] [employer]EF[employer] AD[employer] [address] BENEF[employer] ADMINISTRATORS [employer] Care Teams Technical Applications Scientist Relationship Specialty Start Date End Date Cara Byers MD [facility] [place] [address] PCP - General Internal Medicine 05/28/20 Additional Source Comments The information contained in this document represents components of the legal health record. It is not the complete legal health record.[facility]
--- OUTSIDE RECORDS SUMMARY | 2025-05-14 12:21 | XMS_ITS | Encounter Summary ---
Author Organization [facility] Address [address] [place] [address] Phone Care Team Providers Care General Activities Therapist Name Role Phone Unavailable Primary Care Provider Unavailabl e Encounter Details Date Type Department Care Team (Late st Contact Info) Description 04/15/2022 Telephone [facility] [address] [place] [address] Rene Nelson MD Social History [...] for guidance. Please call her back at [phone] Thank you documented in this encounter Plan of Treatment Not on file documented as of this encounter Visit Diagnoses Not on filedocumented in this encounter
--- OUTSIDE RECORDS SUMMARY | 2025-05-14 12:21 | XMS_ITS | Encounter Summary ---
Author Organization [facility] Address [address] [place] [address] Phone Care Team Providers Care Gluing Machine Offbearer Name Role Phone Unavailable Primary Care Provider Unavailabl e Encounter Details Date Type Department Care Team (Late st Contact Info) Description 04/25/2022 Telephone [facility] [address] [place] [address] Rene Nelson MD Social History [...] labs done. Please advise Thank you CB# [phone] documented in this encounter Plan of Treatment Not on file documented as of this encounter Visit Diagnoses Not on filedocumented in this encounter
== END 2025-05-14 12:18 | disposition home or self-care (01) ==
LOC: HO.HMGCX 12:17
PROVIDERS: PCP Internal Medicine; Visit Provider Internal Medicine
DX: M25.511 Pain in right shoulder (principal)
CPT/HCPCS: 73030

== ENCOUNTER → 2025-05-14 12:20 | Outpatient (BNV) | payer OTHER, SELFPAY | PROVIDERS: PCP Internal Medicine; Visit Provider Radiology Diagnostic Radiology | DX: M19.011 Primary osteoarthritis, right shoulder (principal) | CPT/HCPCS: 73030 ==

== ENCOUNTER 2025-05-17 07:52 | Outpatient (AMB) | payer OTHER, SELFPAY ==
--- OUTSIDE RECORDS SUMMARY | 2025-05-17 07:57 | XMS_ITS | Encounter Summary ---
Author Organization [facility] Address [address] [place] [address] Phone Care Team Providers Care Space Systems Operations Superintendent Name Role Phone Unavailable Primary Care Provider Unavailabl e Encounter Details Date Type Department Care Team (Late st Contact Info) Description 04/15/2022 Telephone [facility] [address] [place] [address] Rene Nelson MD Social History [...] for guidance. Please call her back at [phone] Thank you documented in this encounter Plan of Treatment Not on file documented as of this encounter Visit Diagnoses Not on filedocumented in this encounter
--- OUTSIDE RECORDS SUMMARY | 2025-05-17 07:57 | XMS_ITS | Clinical Summary ---
Author Organization [facility] Address [address] [place] [address] Phone Care Team Providers Care Director Of Agriculture Name Role Phone Cara Byers MD Primary Care Provider [phone] Allergies No known active allergies Medications lisinopril [...] given a sample of Ozempic lot number [id number], expiration 02/28/2023. Assessment & Plan (10/31/2021 4:03 [...] Most Recently Relevant to Health Maintenance Insurance [facility] BLUE BENEFITS ADMINISTRATORS [employer] Member Subscriber Plan / Payer ( fective 2019-Present) Name:Karen Ferrell Relation to Subscriber:Self Name:Karen Ferrell Payer ID:[id number] ([facility]) Type:PPO Address: [address] [employer]MINISTRATORS [employer] [place] [place] [employer] Care Teams Director Of Agriculture Relationship Specialty Start Date End Date Cara Byers MD [facility] [place] [address] PCP - General Internal Medicine 05/28/20 Additional Source Comments The information contained in this document represents components of the legal health record. It is not the complete legal health record.[facility]
--- OUTSIDE RECORDS SUMMARY | 2025-05-17 07:57 | XMS_ITS | Clinical Summary ---
Author Organization [facility] Address [address] [place] [address] Phone Care Team Providers Care Link Fabric Machine Operator Name Role Phone Unavailable Primary Care [...] mg/dl PVNMA 05/02/2020 us Rtama Conversion LAB [id number] LICITED RESULTS Final Result PVNMA from Last 3 Months or Most Recently Relevant to Health Maintenance Insurance Comprehensive Benefits Comprehensive Benefits
--- OUTSIDE RECORDS SUMMARY | 2025-05-17 07:57 | XMS_ITS | Encounter Summary ---
Author Organization [facility] Address [address] [place] [address] Phone Care Team Providers Care Medical Detailist Name Role Phone Unavailable Primary Care Provider Unavailabl e Encounter Details Date Type Department Care Team (Late st Contact Info) Description 04/25/2022 Telephone [facility] [address] [place] [address] Rene Nelson MD Social History [...] labs done. Please advise Thank you CB# [phone] documented in this encounter Plan of Treatment Not on file documented as of this encounter Visit Diagnoses Not on filedocumented in this encounter
[2025-05-17 08:26] VITALS: BP 130/72; PULSE 78; O2SAT 98; BMI 53.8
--- NOTE | 2025-05-17 08:26 | A.OFFPC_ITS ---
Vital Signs 05/17/25 08:26 Height 5 ft 2 in Weight 294 lb BMI 53.8 BP 130/72 Blood Pressure Location Lt brachial Position Sitting Pulse 78 Pulse Source Pulse Oximeter Pulse Oximetry (%) 98 Intake Visit Reasons: right shoulder pain Allergies raspberry (Raspberry) Allergy (Mild, Verified 05/17/25 08:27) HIVES Medication List - Last Reconciled 05/17/25 by Cara Byers MD albuterol sulfate 90 mcg/actuation 1 inh inhalation QID PRN 30 days amlodipine-benazepril 5-20 mg 1 cap PO DAILY blood sugar diagnostic (Silarus TherapeuticsTouch Ultra Test strips) Use BID As directed to monitor blood glucose blood sugar diagnostic (FreeStyle Lite Strips) Use daily As directed to check blood glucose blood-glucose meter (RxResultsuch Ultra2 Meter) Use 2 x daily As directed to monitor blood sugars. blood-glucose meter (FreeStyle Lite Meter kit) Use daily As directed to check blood sugars blood-glucose sensor (RescaleStyle Jason 3 Plus Sensor device) Use daily As directed to monitor glucose cholecalciferol (vitamin D3) 25 mcg PO DAILY citalopram 40 mg PO DAILY 90 days clotrimazole-betamethasone 1-0.05 % 1 appl topical ONCE 30 days [CPAP machine Full face mask F 20 with pressure setting 18/12 cm H2O. Please provide bi-level devise 18/12 cm H2O resmed aircurve 2 V auto.] empagliflozin (Jardiance) 10 mg PO QAM fluticasone propionate 50 mcg/actuation (Flonase Allergy Relief) 1 spray intranasal BID 30 days furosemide (Lasix) 20 mg PO DAILY PRN gabapentin 300 mg PO .qhs glucagon 3 mg/actuation 3 mg intranasal ONCE PRN glucose (Dex4 Glucose) 16 grams (4 x 4 gram) PO Q15M PRN insulin glargine (Basaglar KwikPen U-100 Insulin) 60 units (0.6 mL) subcut BID 30 days insulin lispro (Humalog KwikPen (U-100) Insulin) 5 units (0.05 mL) subcut TID lancets (FreeStyle Lancets) As directed lancets (RxResultsuch UltraSoft 2 Lancet) use 2 x daily As directed to monitor blood sugars lancets (FreeStyle Lancets) use daily as directed to check blood glucose lidocaine 5% 1 patch topical DAILY lorazepam 1 mg PO ONCE PRN 90 days nystatin 1 appl topical DAILY PRN omeprazole 20 mg PO DAILY 90 days pen needle, diabetic (Easy Comfort Pen [place]) B.i.d. propranolol ER 60 mg PO DAILY 90 days simvastatin 40 mg PO BEDTIME 90 days tirzepatide (Mounjaro) 2.5 mg (0.5 mL) subcut QWEEK Tobacco use date assessed: 02/11/25 Dental Screening Dental Screen Date: 02/11/25 HPI right shoulder pain HPI Details History of Present Illness The patient is a 55-year-old female presenting with right shoulder pain and acromioclavicular joint arthritis. Right shoulder pain: - Developed approximately two weeks ago. - Pain is localized to the muscle in the right shoulder area. - Severity increases by the end of the d ay, characterized as in agony, zac to a toothache sensation. - Symptoms are less severe in the mornin g upon waking. - Described as a pulling sensation, comp arable to a rubber band when the arm is moved. - No specific inciting event or injury r eported. - Exacerbated by daily activities involv ing the use of the right arm, particularly as this is the patient's dominant hand . - Relieved somewhat with Tylenol. Acromioclavicular joint arthritis: - Diagnosed based on recent X-ray result s. - X-ray showed severe arthritis in the a cromioclavicular joint. . Medical History: - Compromised kidney function. - DM - HTN Problem List - Right shoulder pain - Acromioclavicular joint arthritis - Compromised kidney function - DM Patient Instructions - Start physical therapy as prescribed. - Take tramadol at night to help manage shoulder pain. - Continue using Tylenol for pain as nee ded during the day - Avoid activities that exacerbate shoul steve pain. - Monitor for any changes in shoulder pa in intensity or character. Review of Systems - General: No fever no chills - Neurological: No headaches no dizziness - Ear nose throat: No sore throat no hearing difficulty no ear pain - Cardiovascular: No syncope, no chest pain, no palpitations - Gastrointestinal: No nausea vomiting or diarrhea Physical Exam General: No acute distress HEENT: No acute findings Neck: Supple Respiratory system: Able to talk in full sentences, no audible wheeze Gastrointestinal: No pain Extremities: Right shoulder pain, tender over anterior bicepe muscle with palpation [place]: Alert awake oriented x3 motor intact Skin: Normal turgor [facility] Medical History Difficulty using continuous positive airway pressure (CPAP) full face mask Nocturnal hypoxemia BRENDA treated with BiPAP Morbid obesity HTN (hypertension) Rash Insulin dependent diabetes mellitus Surgical History Previous section History of back surgery Family History Father No problems noted. Mother HTN (hypertension) Maternal Grandfather Cancer Sister No problems noted. Social History Housing: House Alcohol intake: unknown Patient Tobacco Use Status: Never used Tobacco e-Cigarette/Vaping Use: Never Used service: No Current occupational status: employed Cognitive needs: No Hearing needs: No Vision needs: Yes Questionnaire PHQ-9 Over the last 2 weeks, how often have you been bothered by any of the following problems? 1. Little interest or pleasure in doing things: not at all 2. Feeling down, depressed, or hopeless: not at all 3. Trouble falling or staying asleep, or sleeping too much: not at all 4. Feeling tired or having little energy: not at all 5. Poor appetite or overeating: not at all 6. Feeling bad about yourself - or that you are a failure or have let yourself or your family down: not at all 7. Trouble concentrating on things, such as reading the newspaper or watching television: not at all 8. Moving or speaking so slowly that other people could have noticed. Or the opp osite - being so fidgety or restless that you have been moving around a lot more than usual: not at all 9. Thoughts that you would be better off or of hurting yourself in some way: not at all Total score: 0 Depression Screening Interpretation: Negative Depression Screening Done: Yes 09110 - PHQ-9 Billing: Yes Source: Developed by Drs. Zaheer Suazo, Silvia Gibbs, Thee Ahmadi and colleagues, with an educational esa from [employer]. Thrive Questionnaire Date Thrive assessed: 01/07/25 I am a: Patient What is your living situation today?: I have a steady place to live Within the past 12 months, did the food you bought not last and you didn't have the money to get more?: Never true Within the past 12 months, did you worry whether your food would run out before you got money to buy more?: Never true Do you have trouble paying for medicines?: No Do you have trouble getting transportation to medical appointments?: No Do you have trouble paying your heating and electricity bill?: No Do you have trouble taking care of your child, family member or friend?: No Do you have trouble with day-to-day activities such as bathing, preparing meals, shopping, managing finances, etc.?: No Are you currently unemployed and looking for a job?: No Are you interested in more education?: No Please select the resources that you would like help with: None Currently or been in a relationship where the following occur: No concerns reported THRIVE Score: 0 AUDIT C Alcohol Use Questionnaire (AUDIT-C) 1. How often do you have a drink containing alcohol?: Monthly or less 2. How many drinks containing alcohol do you have on a typical day when you are drinking?: 1 or 2 3. How often do you have six or more drinks on one occasion?: Never Total Score: 1 SARAH-7 AMB Questionnaire SARAH-7 Date SARAH - 7 assessed: 05/17/25 (patient declined) Feeling nervous, anxious, or on edge: 0 = Not at all Not being able to stop or control worryin = Not at all Worrying too much about different things: 0 = Not at all Trouble relaxin = Not at all Being so restless that it is hard to sit still: 0 = Not at all Becoming easily annoyed or irritable: 0 = Not at all Feeling afraid as if something awful might happen: 0 = Not at all Total SARAH-7 score (0-4 normal; 5-9 mild; 10-14 moderate; 15-21 severe): 0 Source: Developed by Drs. Zaheer Suazo, Silvia Gibbs, Thee Ahmadi and colleagues, with an educational esa from [employer]. SARAH-7 Assessment Billing SARAH-7 Assessment Tool: SARAH-7 Assessment 01073 Physical exam (Primary Care) Vital Signs: Last Vital Signs Pulse 78 05/17/25 08:26 BP 130/72 05/17/25 08:26 Pulse Ox 98 05/17/25 08:26 BMI result Body Mass Index 53.8 Tobacco/Smoking Status: Tobacco use Status Tobacco use date assessed 02/11/25 05/17/25 08:30 Patient Tobacco Use Status Never used Tobacco 05/17/25 08:30 e-Cigarette/Vaping Use Never Used 05/17/25 08:30 PHQ-9: PHQ-9 Score PHQ-9: Total score 0 05/17/25 08:38 Depression Screening Interpretation: Negative Thrive Assessment: Date of Thrive Assessment Date Thrive assessed 01/07/25 05/17/25 08:30 Currently or been in a relationship where the following occur: No concerns reported Coding Level of Care Code Est Pt Level 3 (61680) Diagnoses Acute pain of right shoulder M25.511 Chronicity: acute Acromioclavicular joint arthritis, unspecified laterality M19.019 Laterality: unspecified laterality Pain management R52 Additional Codes SARAH-7 Assessment Billing - SARAH-7 Assessment Tool: SARAH-7 Assessment 96863 ([id number]) PHQ-9 - 01040 - PHQ-9 Billing: Yes ([id number]) Assessment & Plan Assessment & Plan (1) Shoulder pain, right: Code(s): M25.511 - Pain in right shoulder Category: Medical Qualifiers: Chronicity: acute Qualified Code(s): M25.511 - Pain in right shoulder (2) Acromioclavicular joint arthritis: Code(s): M19.019 - Primary osteoarthritis, unspecified shoulder Category: Medical Qualifiers: Laterality: unspecified laterality Qualified Code(s): M19.019 - Primary osteoarthritis, unspecified shoulder (3) Pain management: Code(s): R52 - Pain, unspecified Category: Medical Plan History of Present Illness The patient is a 55-year-old female presenting with right shoulder pain and acromioclavicular joint arthritis. Right shoulder pain: - Developed approximately two weeks ago. - Pain is localized to the muscle in the right shoulder area. - Severity increases by the end of the day, characterized as in agony, zac to a toothache sensation. - Symptoms are less severe in the morning upon waking. - Described as a pulling sensation, comparable to a rubber band when the arm is moved. - No specific inciting event or injury reported. - Exacerbated by daily activities involving the use of the right arm, particularly as this is the patient's dominant hand . - Relieved somewhat with Tylenol. Acromioclavicular joint arthritis: - Diagnosed based on recent X-ray results. - X-ray showed severe arthritis in the acromioclavicular joint. . Medical History: - Compromised kidney function. - DM - HTN Problem List - Right shoulder pain - Acromioclavicular joint arthritis - Compromised kidney function - DM Patient Instructions - Start physical therapy as prescribed. - Take tramadol at night to help manage shoulder pain. - Continue using Tylenol for pain as needed during the day - Avoid activities that exacerbate shoulder pain. - Monitor for any changes in shoulder pain intensity or character. Orders: Orders PT Evaluation and Treatment Today M25.511 - Pain in right shoulder Medications: New tramadol 50 mg PO BEDTIME PRN 30 tabs 0RF pain 30 days
== END 2025-05-17 09:50 | disposition home or self-care (01) ==
LOC: HO.HMCC 07:53
PROVIDERS: PCP Internal Medicine; Visit Provider Internal Medicine
DX: M25.511 Pain in right shoulder (principal); M19.011 Primary osteoarthritis, right shoulder

== ENCOUNTER → 2025-05-17 07:52 | Outpatient (BNVA) | payer OTHER, SELFPAY | PROVIDERS: PCP Internal Medicine; Visit Provider Internal Medicine | DX: M19.011 Primary osteoarthritis, right shoulder (principal) | CPT/HCPCS: 96127 ==

== ENCOUNTER 2025-06-16 07:36 | Outpatient (REF) | payer OTHER, SELFPAY ==
--- OUTSIDE RECORDS SUMMARY | 2025-06-16 07:39 | XMS_ITS | Clinical Summary ---
Author Organization [facility] Address [address] [place] [id number] Phone Care Team Providers Care Office Manager Receptionist Name Role Phone Cara Byers MD Primary Care Provider [phone] Allergies No known active allergies Medications lisinopril [...] given a sample of Ozempic lot number [id number], expiration 02/28/2023. Assessment & Plan (10/31/2021 4:03 [...] FOBT 2014 SIGMOIDOSCOPY 2014 VIRTUAL COLONOSCOPY 2014 RSV VACCINE (1 - Risk 50-74 years 1-dose series) 2019 ZOSTER VACCINES (1 of 2) 2019 PNEUMOCOCCAL [...] Most Recently Relevant to Health Maintenance Insurance [email or web address] Member Subscriber Plan / Payer (Ef fective 2019-Present) Name:Karen Ferrell Relation to Subscriber:Self Name:Karen Ferrell Payer ID:[id number] (NA) Type:PPO Address: [address] [email or web address] Member Subscriber Plan / Payer (Ef fective 2019-Present) Name:Karen Ferrell Relation to Subscriber:Self Name:Karen Ferrell Payer ID:[id number] (NAIC) Type:PPO Address: [address] [email or web address] Care Teams Office Manager Receptionist Relationship Specialty Start Date End Date Cara Byers MD [facility] [place] [id number] PCP - General Internal Medicine 05/28/20 Additional Source Comments The information contained in this document represents components of the legal health record. It is not the complete legal health record.[facility]
[2025-06-16 11:48] LABS: Anion Gap 18 (12-20); Blood Urea Nitrogen 18 mg/dL (9-16); Calcium 9.2 mg/dL (8.4-10.2); Carbon Dioxide 20 mmol/L (22-29); Chloride 102 mmol/L (96-108); Estimated Glomerular Filt Rate 41; Potassium 5.3 mmol/L (3.3-5.1); Sodium 135 mmol/L (135-145)
== END 2025-06-16 07:37 | disposition home or self-care (01) ==
LOC: HO.HMGCLDS 07:36
PROVIDERS: PCP Internal Medicine; Visit Provider Physician Assistant
DX: I10 Essential (primary) hypertension (principal); E11.65 Type 2 diabetes mellitus with hyperglycemia; E11.29 Type 2 diabetes mellitus with other diabetic kidney complication; R80.9 Proteinuria, unspecified; Z79.4 Long term (current) use of insulin
CPT/HCPCS: 36415; 80048; 84681; 86341

== ENCOUNTER 2025-07-05 11:50 | Outpatient (AMB) | payer OTHER, SELFPAY ==
--- NOTE | 2025-07-05 11:51 | A.OFFPC_ITS ---
Vital Signs 07/05/25 11:55 Height 5 ft 2 in Weight 286 lb BMI 52.3 BP 132/74 Blood Pressure Location Lt brachial Position Sitting Pulse 87 Pulse Source Pulse Oximeter Pulse Oximetry (%) 94 Intake Visit Reasons: Anxiety,htn,diabetes, med check Allergies raspberry (Raspberry) Allergy (Mild, Verified 07/05/25 11:55) HIVES Medication List - Last Reconciled 07/05/25 by Cara Byers MD albuterol sulfate 90 mcg/actuation 1 inh inhalation QID PRN 30 days amlodipine-benazepril 5-20 mg 1 cap PO DAILY blood sugar diagnostic (VisualtisingTouch Ultra Test strips) Use BID As directed to monitor blood glucose blood sugar diagnostic (FreeStyle Lite Strips) Use daily As directed to check blood glucose blood-glucose meter ([employer]uch Ultra2 Meter) Use 2 x daily As directed to monitor blood sugars. blood-glucose meter (FreeStyle Lite Meter kit) Use daily As directed to check blood sugars blood-glucose sensor (Baolab MicrosystemsStyle Jason 3 Plus Sensor device) Use daily As directed to monitor glucose cholecalciferol (vitamin D3) 25 mcg PO DAILY citalopram 40 mg PO DAILY 90 days clotrimazole-betamethasone 1-0.05 % 1 appl topical ONCE 30 days [CPAP machine Full face mask F 20 with pressure setting 18/12 cm H2O. Please provide bi-level devise 18/12 cm H2O resmed aircurve 2 V auto.] empagliflozin (Jardiance) 10 mg PO QAM fluticasone propionate 50 mcg/actuation (Flonase Allergy Relief) 1 spray i ntranasal BID 30 days furosemide (Lasix) 20 mg PO DAILY PRN gabapentin 300 mg PO .qhs glucagon 3 mg/actuation 3 mg intranasal ONCE PRN glucose (Dex4 Glucose) 16 grams (4 x 4 gram) PO Q15M PRN insulin glargine (Basaglar KwikPen U-100 Insulin) 60 units (0.6 mL) subcut BID 30 days insulin lispro (Humalog KwikPen (U-100) Insulin) 5 units (0.05 mL) subcut TID lancets (FreeStyle Lancets) As directed lancets ([employer]uch UltraSoft 2 Lancet) use 2 x daily As directed to monitor blood sugars lancets (FreeStyle Lancets) use daily as directed to check blood glucose lidocaine 5% 1 patch topical DAILY lorazepam 1 mg PO ONCE PRN 90 days nystatin 1 appl topical DAILY PRN omeprazole 20 mg PO DAILY 90 days pen needle, diabetic (Easy Comfort Pen Cos Cob) B.i.d. propranolol ER 60 mg PO DAILY 90 days simvastatin 40 mg PO BEDTIME 90 days tirzepatide (Mounjaro) 2.5 mg (0.5 mL) subcut QWEEK tramadol 50 mg PO BEDTIME PRN 30 days Tobacco use date assessed: 02/11/25 Dental Screening Dental Screen Date: 02/11/25 HPI Anxiety,htn,diabetes, med check HPI Details History The patient is a 55-year-old female presenting for a regular follow-up and medication refill. Diabetes Mellitus: - The patient has a history of morbid di abetes managed with injections and is followed by endocrinology. - She recently switched from Ozempic to Mounjaro, as Ozempic caused weekly nausea. - Her recent random glucose was 120, whi ch is a good sign. - She takes long-acting insulin 60 units twice daily but reports rarely needing to use her sliding scale Lispro insulin. Chronic Kidney Disease & Hyperkalemia: - The patient has a history of albuminur ia, diabetic nephropathy, and is followed by a supervisor ordnance truck installation, Dr. Askew. - Labs from June 16 showed a glomer ular filtration rate (GFR) of 41, a decline from a normal level in January. - Her potassium level was also elevated at 5.3 on the recent labs, which is concerning as she takes benazepril. Shoulder Pain: - The patient has a history of shoulder pain, for which she was prescribed tramadol in May. - She reports her shoulder is still sore and states tramadol provides no relief, while gabapentin is more effective. - A May X-ray revealed moderate de generative changes of the acromioclavicular (AC) joint. - She has not yet seen an orthopedic spe cialist or started physical therapy for this issue. Dermatitis: - The patient reports that after she marichuy wers, her legs become extremely itchy, causing her to scratch them raw. - The condition is present on both legs and is described as inflamed and dry, consistent with diabetic dermopathy. - She has tried a Benadryl-like cream an d has CeraVe at home. 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 Francisco. - She uses her CPAP machine every day. Lip Lesion: - The patient has a history of a lip les ion for which she consulted with primary care, dermatology, and an oral surgeon. - Plans for a biopsy were not pursued du e to insurance coverage issues, as it was not being covered under medical insurance. - The lesion is unchanged and she now us es sunscreen on it. Medications: - Amlodipine - Benazepril - Citalopram 40 mg for anxiety and depre ssion - CPAP machine for sleep apnea - Long-acting insulin 60 units twice davion ly - Insulin lispro 5 units three times davion ly on a sliding scale, as needed (rarely used) - Mounjaro (previously on Ozempic 2 mg w kl) - Lorazepam - Omeprazole - Propranolol for headache prevention - Simvastatin - Gabapentin 300 mg at bedtime for neuro sarah - Vitamin D - Jardiance - Fluticasone - Furosemide - Tramadol for shoulder (discontinued du e to lack of efficacy) Social History: - Employment: Patient's work involves [employer] all week. - Pets: Patient has a dog at home. Problem List - Diabetes mellitus, type 2 - Chronic kidney disease, stage 3 - Hyperkalemia - Hypertension - Hyperlipidemia - Shoulder pain secondary to osteoarthri tis of the acromioclavicular joint - Obstructive sleep apnea - Diabetic neuropathy - Anxiety - Depression - Gastroesophageal reflux disease (GERD) stable - Morbid obesity - Headaches, chronic stable - Steatosis of liver (fatty liver) stabl e - Dermatitis of lower extremities new pr oblem - History of lip lesion, benign stable - Allergies - Preventative care: Medication refill - Preventative care: Influenza vaccinati on (completed) Diagnostic results - Labs (June 16): Potassium was 5.3 mEq/L, GFR was 41 mL/min/1.73 m?, and random glucose was 120 mg/dL. - Labs (January): Potassium and GFR were no rmal, and there was no anemia. - Imaging (May): An X-ray of the [facility] showed moderate degenerative changes of the acromioclavicular joint. [place] [facility] Care - Primary Care Provider: Dr. Francisco. - Nephrology: Dr. Ignacio/Dr. Nelson. - Endocrinology: Dr. Selina Jimenez. - Pain Management: Dr. Loaiza. - Sleep Medicine: Dr. Francisco. - Pharmacy: [facility] [place]. Plan - Refills will be sent for citalopram, g abapentin, and lorazepam. - Patient advised to stop taking tramado l for her shoulder as it is not providing relief. - A prescription for cortisone lotion wi ll be sent for the dermatitis on her legs, to be applied once daily at night. - A referral will be placed for the cindy ent to see an cheese specialist at the [place] office for her shoulder pain. - The patient was encouraged to start ph ysical therapy for her shoulder prior to her orthopedic appointment. - A message will be sent to her nephrolo gist, Dr. Nelson, to review her recent lab results, specifically the elevated potassium of 5.3, considering her use of benazepril. - The patient will proceed with her upla titus appointments with endocrinology and nephrology in August. - The patient is advised to follow up in three months. Review of Systems. General: No fever no chills neurological: No headaches no dizziness ear nose throat: No sore throat no hearing difficulty no ear pain cardiovascular: No syncope, no chest pain, no palpitations gastrointestinal: No nausea vomiting or diarrhea Physical Exam general: No acute distress HEENT: No acute findings neck: Supple respiratory system: Able to talk in full sentences, no audible wheeze no stridor cardiovascular: S1-S2 RRR gastrointestinal: No pain LENS GRINDER APPRENTICE: Alert awake oriented x3 motor intact skin: Both lower legs have a rash erythematous with scratch abbott mpzbq-eld-wope bilateral; patient has been scratching. Prescribing a cortisone lotion to be applied once a day at night. [facility] Medical History Difficulty using continuous positive airway pressure (CPAP) full face mask Nocturnal hypoxemia BRENDA treated with BiPAP Morbid obesity HTN (hypertension) Rash Insulin dependent diabetes mellitus Surgical History Previous section History of back surgery Family History Father No problems noted. Mother HTN (hypertension) Maternal Grandfather Cancer Sister No problems noted. Social History Housing: House Alcohol intake: unknown Patient Tobacco Use Status: Never used Tobacco e-Cigarette/Vaping Use: Never Used service: No Current occupational status: employed Cognitive needs: No Hearing needs: No Vision needs: Yes Questionnaire Thrive Questionnaire Date Thrive assessed: 01/07/25 SARAH-7 AMB Questionnaire SARAH-7 Date SARAH - 7 assessed: 05/17/25 (patient declined) Source: Developed by Drs. Zaheer Suazo, Silvia Gibbs, Thee Ahmadi and colleagues, with an educational esa from [employer]. 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 E10.628 Acute pain of right shoulder M25.511 Chronicity: acute Primary osteoarthritis of right shoulder M19.011 Osteoarthritis type: primary Acromioclavicular joint arthritis, unspecified laterality M19.019 Laterality: unspecified laterality Hypertension, essential I10 Anxiety, generalized F41.1 Lipid disorder E78.9 Recurrent major depressive disorder, in full remission F33.42 Active/Remission status: in full remission Diabetes 1.5, managed as type 1 E13.9 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 Z79.4 Diabetic nephropathy with proteinuria E11.21 Chronic GERD K21.9 Headache syndrome G44.89 Microalbuminuria due to type 2 diabetes mellitus E11.29; R80.9 Morbid obesity E66.01 BRENDA treated with BiPAP G47.33 Time Spent (min) 40 Comment Complicated patient multiple medical problems/chart review/lab review/wrgc-tm-jgpc/coordin Assessment & Plan Assessment & Plan (1) Hyperkalemia: Code(s): E87.5 - Hyperkalemia Category: Medical (2) 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: Code(s): E10.628 - Type 1 diabetes mellitus with other skin complications Category: Medical (3) Shoulder pain, right: Code(s): M25.511 - Pain in right shoulder Category: Medical Qualifiers: Chronicity: acute Qualified Code(s): M25.511 - Pain in right shoulder (4) DJD of right shoulder: Code(s): M19.011 - Primary osteoarthritis, right shoulder Category: Medical Qualifiers: Osteoarthritis type: primary Qualified Code(s): M19.011 - Primary osteoarthritis, right shoulder (5) Acromioclavicular joint arthritis: Code(s): M19.019 - Primary osteoarthritis, unspecified shoulder Category: Medical Qualifiers: Laterality: unspecified laterality Qualified Code(s): M19.019 - Primary osteoarthritis, unspecified shoulder (6) Hypertension, essential: Code(s): I10 - Essential (primary) hypertension Category: Medical (7) Anxiety, generalized: Code(s): F41.1 - Generalized anxiety disorder Category: Medical (8) Lipid disorder: Code(s): E78.9 - Disorder of lipoprotein metabolism, unspecified Category: Medical (9) Depression, major, recurrent: Code(s): F33.9 - Major depressive disorder, recurrent, unspecified Category: Medical Qualifiers: Active/Remission status: in full remission Qualified Code(s): F33.42 - Major depressive disorder, recurrent, in full remission (10) Diabetes 1.5, managed as type 1: Code(s): E13.9 - Other specified diabetes mellitus without complications Category: Medical (11) detention (current) use of insulin: Code(s): Z79.4 - 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 Category: Medical (12) Diabetic nephropathy with proteinuria: Code(s): E11.21 - Type 2 diabetes mellitus with diabetic nephropathy Category: Medical (13) Chronic GERD: Code(s): K21.9 - Gastro-esophageal reflux disease without esophagitis Category: Medical (14) Headache syndrome: Code(s): G44.89 - Other headache syndrome Category: Medical (15) Microalbuminuria due to type 2 diabetes mellitus: Code(s): E11.29 - Type 2 diabetes mellitus with other diabetic kidney complication; R80.9 - Proteinuria, unspecified Category: Medical (16) Morbid obesity: Comment: BMI=51.6 Code(s): E66.01 - Morbid (severe) obesity due to excess calories Category: Medical (17) BRENDA treated with BiPAP: Comment: HAS SEVERE OBSTRUCTIVE SLEEP APNEA WITH NOCTURNAL HYPOXEMIA. SUBJECTIVELY MUCH IMPROVED WITH THE USE OF BIPAP, HAS THE DISCOMFORT WITH THE CURRENT FULLFACE MASK, AND THERE IS SOME AIR LEAK. SHE IS VERY COMPLIANT AND USING THE BIPAP, AND DEFINITELY BENEFITING. Code(s): G47.33 - Obstructive sleep apnea (adult) (pediatric) Category: Medical Plan Diabetes Mellitus: - The patient has a history of morbid diabetes managed with injections and is followed by endocrinology. - She recently switched from Ozempic to Mounjaro, as Ozempic caused weekly nausea. - Her recent random glucose was 120, which is a good sign. - She takes long-acting insulin 60 units twice daily but reports rarely needing to use her sliding scale Lispro insulin. Chronic Kidney Disease & Hyperkalemia: - The patient has a history of albuminuria, diabetic nephropathy, and is followed by a supervisor ordnance truck installation, Dr. Askew. - Labs from June 16 showed a glomerular filtration rate (GFR) of 41, a decline from a normal level in January. - Her potassium level was also elevated at 5.3 on the recent labs, which is concerning as she takes benazepril. Shoulder Pain: - The patient has a history of shoulder pain, for which she was prescribed tramadol in May. - She reports her shoulder is still sore and states tramadol provides no relief, while gabapentin is more effective. - A May X-ray revealed moderate degenerative changes of the acromioclavicular (AC) joint. - She has not yet seen an cheese specialist or started physical therapy for this issue. Dermatitis: - The patient reports that after she showers, her legs become extremely itchy, causing her to scratch them raw. - The condition is present on both legs and is described as inflamed and dry, consistent with diabetic dermopathy. - She has tried a Benadryl-like cream and has CeraVe at home. Obstructive Sleep Apnea: - The patient has a history of sleep apnea and is followed by Dr. Francisco. - She uses her CPAP machine every day. Lip Lesion: - The patient has a history of a lip lesion for which she consulted with primary care, dermatology, and an oral surgeon. - Plans for a biopsy were not pursued due to insurance coverage issues, as it was not being covered under medical insurance. - The lesion is unchanged and she now uses sunscreen on it. 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 - Pets: Patient has a dog at home. Problem List - Diabetes mellitus, type 2 - Chronic kidney disease, stage 3 - Hyperkalemia - Hypertension - Hyperlipidemia - Shoulder pain secondary to osteoarthritis of the acromioclavicular joint - Obstructive sleep apnea - Diabetic neuropathy - Anxiety - Depression - Gastroesophageal reflux disease (GERD) stable - Morbid obesity - Headaches, chronic stable - Steatosis of liver (fatty liver) stable - Dermatitis of lower extremities new problem - History of lip lesion, benign stable - Allergies - Preventative care: Medication refill - Preventative care: Influenza vaccination (completed) Diagnostic results - Labs (June 16): Potassium was 5.3 mEq/L, GFR was 41 mL/min/1.73 m?, and random glucose was 120 mg/dL. - Labs (January): Potassium and GFR were normal, and there was no anemia. - Imaging (May): An X-ray of the shoulder showed moderate degenerative changes of the acromioclavicular joint. [place] [facility] - Primary Care Provider: Dr. Francisco. - Nephrology: Dr. Ignacio/Dr. Nelson. - Endocrinology: Dr. Selina Jimenez. - Pain Management: Dr. Loaiza. - Sleep Medicine: Dr. Francisco. - Pharmacy: [facility] [place]. Plan - Refills will be sent for citalopram, gabapentin, and lorazepam. - Patient advised to stop taking tramadol for her shoulder as it is not providing relief. - A prescription for cortisone lotion will be sent for the dermatitis on her legs, to be applied once daily at night. - A referral will be placed for the patient to see an cheese specialist at the [place] office for her shoulder pain. - The patient was encouraged to start physical therapy for her shoulder prior to her orthopedic appointment. - A message will be sent to her supervisor ordnance truck installation, Dr. Nelson, to review her recent lab results, specifically the elevated potassium of 5.3, considering her use of benazepril. - The patient will proceed with her upcoming appointments with endocrinology and nephrology in August. - The patient is advised to follow up in three months. Orders: Referrals Orthopedics Referral M19.011 - Primary osteoarthritis, right shoulder, M25.511 - Pain in right shoulder Medications: New triamcinolone acetonide 0.1% 1 appl topical .qhs 60 mL 2RF rash both lower legs 30 days Refilled citalopram 40 mg PO DAILY 90 tabs 0RF 90 days lorazepam 1 mg PO ONCE PRN 90 tabs 0RF anxiety 90 days F41.1 - Generalized anxiety disorder gabapentin 300 mg PO .qhs 90 caps 0RF neuropathy
[2025-07-05 11:55] VITALS: BP 132/74; PULSE 87; O2SAT 94; BMI 52.3
--- OUTSIDE RECORDS SUMMARY | 2025-07-05 14:38 | XMS_ITS | Encounter Summary ---
Author Organization [facility] Address [facility] [place] [address] Care Team Providers Care Cleaner Carpet And Upholstery Name Role Phone Benita Liu MD Primary Care Provider Cong garcia Encounter Details Date Type Department Care Team Description 03/22/2016 BLACKENER/[facility] Report Medical Records [address] [place] [address] Benita Liu MD Social History Tobacco Use [...] on filedocumented in this encounter Care Teams Cleaner Carpet And Upholstery Relationship Specialty Start Date End Date Benita Liu MD PCP - General Internal Medicine 09/12/15 documented as of this encounter
--- OUTSIDE RECORDS SUMMARY | 2025-07-05 14:38 | XMS_ITS | Clinical Summary ---
Author Organization [facility] Address [address] [place] [address] Care Team Providers Care Account Resolution Specialist Name Role Phone Benita Liu MD [...] EVERY DAY 30 Cap 5 11/02/2018 Active [id number] -COD 05-782-93-30 MG OR CAPS (FIORICET WITH CODEINE) 06-675-05-30 MG per capsuleIndications:I ntractable migraine without status [...] 80 02/17/2019 11:23 AM EDT Temperature 37 C (98.6 F) 02/17/2019 11:23 AM EDT Respiratory Rate 16 [...] EYE EXAM 11/06/2019 11/05/2018, DIABETES/HEART DISEASE: ALIZE AL CHOLESTEROL (LDL) 02/04/2020 02/03/2019, 02/03/2019, 07/09/2018, Additional history exists BMI CHECK/ADVISE 09/01/2024 02/17/2019, 12/2018, 07/09/2018, Additional history exists DEPRESSION SCREENING/FOLLOWUP 09/01/2024, 03/01/2019, 02/03/2019, Additional history exists SOCIAL NEEDS SCREENING 09/01/2024 DTAP/TDAP/TD (2 - Td or Tdap) 01/30/2025 (External Completion of test per patient (Patient reports normal results)) INFLUENZA (#1) 2025 07/09/2018, 05/02, 05/28/2016 Care Teams Account Resolution Specialist Relationship Specialty Start Date End Date Benita Liu MD PCP - General Internal Medicine 09/12/15
--- OUTSIDE RECORDS SUMMARY | 2025-07-05 14:38 | XMS_ITS | Encounter Summary ---
Author Organization [facility] Address [facility] [place] [address] Care Team Providers Care Cognos Bi Administrator Name Role Phone Benita Liu MD Primary Care Provider Cong garcia Encounter Details Date Type Department Care Team Description 01/20/2017 Orders Only Medicine/Pediatrics - [address] [phone] Bill Bedolla PA-C Hyperkalemia (Primary Dx) Social [...] - 5.5 mEq/L 01/21/2017 12:56 PM EDT [facility] 01/21/2017 8:56 AM EDT 01/21/2017 8:56 AM EDT Bill Bedolla PA-C LAB [facility] [employer] [address] documented in this encounter Visit Diagnoses Diagnosis Hyperkalemia- Primary Hyperpotassemia documented in this encounter Care Teams Cognos Bi Administrator Relationship Specialty Start Date End Date Benita Liu MD PCP - General Internal Medicine 09/12/15 documented as of this encounter
--- OUTSIDE RECORDS SUMMARY | 2025-07-05 14:38 | XMS_ITS | Encounter Summary ---
Author Organization [facility] Address [address] [place] [address] Care Team Providers Care Disk Sharpener Name Role Phone Benita Liu MD Primary Care Provider Unavaila ble Reason for Visit * Reason Onset Date Comments refill request 11/11/2018 Encounter Details Date Type Department Care Team Description 11/11/2018 Telephone Medicine/Pediatrics - [address] [phone] Benita Liu MD refill request Social History [...] type documented in this encounter Care Teams Disk Sharpener Relationship Specialty Start Date End Date Benita Liu MD PCP - General Internal Medicine 09/12/15 documented as of this encounter
--- OUTSIDE RECORDS SUMMARY | 2025-07-05 14:38 | XMS_ITS | Encounter Summary ---
Author Organization [facility] Address [facility] [place] [address] Care Team Providers Care Gym Teacher Name Role Phone Benita Liu MD Primary Care Provider Cong garcia Encounter Details Date Type Department Care Team Description 12/03/2017 Release of Information Medical Records [address] [place] [id number] Abstract, Provider Social History Tobacco Use Types [...] on filedocumented in this encounter Care Teams Gym Teacher Relationship Specialty Start Date End Date Benita Liu MD PCP - General Internal Medicine 09/12/15 documented as of this encounter
--- OUTSIDE RECORDS SUMMARY | 2025-07-05 14:38 | XMS_ITS | Encounter Summary ---
Author Organization [facility] Address [facility] [place] [address] Care Team Providers Care Telemetry Monitor Name Role Phone Benita Liu MD Primary Care Provider Cong garcia Encounter Details Date Type Department Care Team Description 03/20/2016 Controlled Substance Plan Medical Records [address] [place] [id number] Benita Liu MD Social History Tobacco Use [...] on filedocumented in this encounter Care Teams Telemetry Monitor Relationship Specialty Start Date End Date Benita Liu MD PCP - General Internal Medicine 09/12/15 documented as of this encounter
--- OUTSIDE RECORDS SUMMARY | 2025-07-05 14:38 | XMS_ITS | Encounter Summary ---
Author Organization [facility] Address [address] [place] [address] Care Team Providers Care Field Crop Technical Officer Name Role Phone Benita Liu MD Primary Care Provider Unavaila ble Reason for Visit * Reason Onset Date Comments Special Procedure 11/07/2020 Encounter Details Date Type Department Care Team Description 11/07/2020 Telephone Gastroenterology - [address] [place] [address] Azael Moeller MD [address] [place] [id number] Special Procedure Social History Tobacco Use Types [...] on filedocumented in this encounter Care Teams Field Crop Technical Officer Relationship Specialty Start Date End Date Benita Liu MD PCP - General Internal Medicine 09/12/15 documented as of this encounter
--- OUTSIDE RECORDS SUMMARY | 2025-07-05 14:38 | XMS_ITS | Encounter Summary ---
Author Organization [facility] Address [facility] [place] [address] Care Team Providers Care Rayon Winder Name Role Phone Benita Liu MD Primary Care Provider Cong garcia Encounter Details Date Type Department Care Team Description 12/27/2015 Controlled Substance Contract with Plan Medical Records [address] [place] [id number] Abstract, Provider Social History Tobacco Use Types [...] on filedocumented in this encounter Care Teams Rayon Winder Relationship Specialty Start Date End Date Benita Liu MD PCP - General Internal Medicine 09/12/15 documented as of this encounter
--- OUTSIDE RECORDS SUMMARY | 2025-07-05 14:38 | XMS_ITS | Encounter Summary ---
Author Organization [facility] Address [address] [place] [address] Care Team Providers Care Biology Specimen Technician Name Role Phone Benita Liu MD Primary Care Provider Cong garcia Encounter Details Date Type Department Care Team Description 02/24/2019 [facility] Medical Records [address] [place] [address] Abstract, Provider Social History Tobacco Use Types [...] on filedocumented in this encounter Care Teams Biology Specimen Technician Relationship Specialty Start Date End Date Benita Liu MD PCP - General Internal Medicine 09/12/15 documented as of this encounter
--- OUTSIDE RECORDS SUMMARY | 2025-07-05 14:38 | XMS_ITS | Clinical Summary ---
Author Organization [facility] Address [address] [place] [address] Phone Care Team Providers Care School Office Assistant Name Role Phone Cara Byers MD Primary Care Provider [phone] Allergies No known active allergies Medications lisinopril [...] given a sample of Ozempic lot number [id number], expiration 02/28/2023. Assessment & Plan (10/31/2021 4:03 [...] Date/Time Associated Diagnosis Comments BASIC METABOLIC PANEL (BMP) Routine 02/12/2024 11:03 AM EDT POCT HEMOGLOBIN A1C Routine 10/31/2021 4 :31 PM EST Type 2 diabetes mellitus with diabetic nephropathy, with long-term current use of insulin from Last 3 Months or Most Recently Relevant to Health Maintenance Results * Basic metabolic panel (02/12/2024 11:03 AM EDT) Historical Provider LAB BLOOD BKR ORDERABLES Final Result * (ABNORMAL) POCT Hemoglobin A1c (10/31/2021 4:31 PM EST) Hemoglobin A1c 11.5(A) 4.2 - 5.8 % Other 10/31/2021 4:31 PM EST Hernandez Hartman DO LAB POCT ENTER/EDIT ORDERABLES F inal Result from Last 3 Months or Most Recently Relevant to Health Maintenance Insurance [employer] Member Subscriber Plan / Payer (Ef fective 2019-Present) Name:Karen Ferrell Relation to Subscriber:Self Name:Karen Ferrell Payer ID:[id number] (NA) Type:PPO Address: [place] [id number] [employer] Member Subscriber Plan / Payer (Ef fective 2019-Present) Name:Karen Ferrell Relation to Subscriber:Self Name:Karen Ferrell Payer ID:[id number] (NAIC) Type:PPO Address: [address] [employer] [place] [address] Care Teams School Office Assistant Relationship Specialty Start Date End Date Cara Byers MD [facility] [place] [address] PCP - General Internal Medicine 05/28/20 Additional Source Comments The information contained in this document represents components of the legal health record. It is not the complete legal health record.[facility]
--- OUTSIDE RECORDS SUMMARY | 2025-07-05 14:38 | XMS_ITS | Encounter Summary ---
Author Organization [facility] Address [facility] [place] [address] Care Team Providers Care Flower Grower Name Role Phone Benita Liu MD Primary Care Provider oCng garcia Encounter Details Date Type Department Care Team Description 11/13/2017 Railway Signal Electrician Report Medical Records [address] [place] [address] Latia Garcia MD Social History Tobacco Use [...] on filedocumented in this encounter Care Teams Flower Grower Relationship Specialty Start Date End Date Benita Liu MD PCP - General Internal Medicine 09/12/15 documented as of this encounter
--- OUTSIDE RECORDS SUMMARY | 2025-07-05 14:38 | XMS_ITS | Encounter Summary ---
Author Organization [facility] Address [address] [place] [address] Care Team Providers Care Blasting Coal Miner Name Role Phone Benita Liu MD Primary Care Provider Unavaila ble Reason for Visit * Reason Onset Date Comments Letter 08/30/2019 Encounter Details Date Type Department Care Team Description 08/30/2019 Telephone Medicine/Pediatrics - [address] [address] Benita Liu MD Letter Social History Tobacco [...] on filedocumented in this encounter Care Teams Blasting Coal Miner Relationship Specialty Start Date End Date Benita Liu MD PCP - General Internal Medicine 09/12/15 documented as of this encounter
--- OUTSIDE RECORDS SUMMARY | 2025-07-05 14:38 | XMS_ITS | Encounter Summary ---
Author Organization [facility] Address [address] [place] [address] Care Team Providers Care Nuclear Worker Technician Name Role Phone Benita Liu MD Primary Care Provider Unavaila ble Reason for Visit * Reason Onset Date Comments Testing 08/30/2016 Ct Scan Chest Encounter Details Date Type Department Care Team Description 08/30/2016 Telephone Medicine/Pediatrics - [address] [phone] Benita Liu MD Testing (Ct Scan Chest) [...] you would like to speak with a School Occupational Therapist you may call [phone] Case # [id number] Thanks, Iliana Purdy Auth Dept. documented in this encounter Plan of Treatment Not on file documented as of this encounter Visit Diagnoses Not on filedocumented in this encounter Care Teams Nuclear Worker Technician Relationship Specialty Start Date End Date Benita Liu MD PCP - General Internal Medicine 09/12/15 documented as of this encounter
--- OUTSIDE RECORDS SUMMARY | 2025-07-05 14:38 | XMS_ITS | Encounter Summary ---
Author Organization [facility] Address [facility] [place] [address] Care Team Providers Care Cleaner Carpet And Upholstery Name Role Phone Benita Liu MD Primary Care Provider Cong garcia Encounter Details Date Type Department Care Team Description 02/05/2019 PNO Controlled Substance Contract Medical Records [address] [place] [address] Abstract, Provider Social History Tobacco Use Types [...]
--- OUTSIDE RECORDS SUMMARY | 2025-07-05 14:38 | XMS_ITS | Encounter Summary ---
Author Organization [facility] Address [facility] [place] [address] Care Team Providers Care Language Assistant Name Role Phone Benita Liu MD Primary Care Provider Cong garcia Encounter Details Date Type Department Care Team Description 09/17/2017 Library Specialist Report Medical Records [address] [place] [address] Latia Garcia MD Social History Tobacco Use [...] on filedocumented in this encounter Care Teams Language Assistant Relationship Specialty Start Date End Date Benita Liu MD PCP - General Internal Medicine 09/12/15 documented as of this encounter
== END 2025-07-05 13:16 | disposition home or self-care (01) ==
LOC: HO.HMCC 11:50
PROVIDERS: PCP Internal Medicine; Visit Provider Internal Medicine
DX: E11.21 Type 2 diabetes mellitus with diabetic nephropathy (principal); Z79.4 Long term (current) use of insulin; E66.01 Morbid (severe) obesity due to excess calories; E11.29 Type 2 diabetes mellitus with other diabetic kidney complication; E87.5 Hyperkalemia; M25.511 Pain in right shoulder; M19.011 Primary osteoarthritis, right shoulder; M19.019 Primary osteoarthritis, unspecified shoulder; I10 Essential (primary) hypertension; F41.1 Generalized anxiety disorder; E78.9 Disorder of lipoprotein metabolism, unspecified; F33.42 Major depressive disorder, recurrent, in full remission; K21.9 Gastro-esophageal reflux disease without esophagitis; G44.89 Other headache syndrome; R80.9 Proteinuria, unspecified; G47.33 Obstructive sleep apnea (adult) (pediatric)

== ENCOUNTER 2025-07-21 07:44 | Outpatient (REF) | payer OTHER, SELFPAY ==
--- OUTSIDE RECORDS SUMMARY | 2025-07-21 07:49 | XMS_ITS | Encounter Summary ---
Author Organization [facility] Address [address] [place] [address] Phone Care Team Providers Care Mailroom Assistant Name Role Phone Unavailable Primary Care Provider Unavailabl e Encounter Details Date Type Department Care Team (Late st Contact Info) Description 04/15/2022 Telephone [facility] [address] [place] [address] Rene Nelson MD Social History [...] for guidance. Please call her back at [phone] Thank you documented in this encounter Plan of Treatment Not on file documented as of this encounter Visit Diagnoses Not on filedocumented in this encounter
--- OUTSIDE RECORDS SUMMARY | 2025-07-21 07:49 | XMS_ITS | Clinical Summary ---
Author Organization [facility] Address [address] [place] [address] Phone Care Team Providers Care Complaint Investigations Officer Name Role Phone Cara Byers MD Primary Care Provider [phone] Allergies No known active allergies Medications lisinopril [...] given a sample of Ozempic lot number [id number], expiration 02/28/2023. Assessment & Plan (10/31/2021 4:03 [...] Most Recently Relevant to Health Maintenance Insurance [employer] Member Subscriber Plan / Payer (Ef fective 2019-Present) Name:Karen Ferrell Relation to Subscriber:Self Name:Karen Ferrell Payer ID:[id number] (NA) Type:PPO Address: [place] [phone] [employer] Member Subscriber Plan / Payer (Ef fective 2019-Present) Name:Karen Ferrell Relation to Subscriber:Self Name:Karen Ferrell Payer ID:[id number] (NAIC) Type:PPO Address: [address] [employer] Care Teams Complaint Investigations Officer Relationship Specialty Start Date End Date Cara Byers MD [facility] [place] [address] PCP - General Internal Medicine 05/28/20 Additional Source Comments The information contained in this document represents components of the legal health record. It is not the complete legal health record.[facility]
--- OUTSIDE RECORDS SUMMARY | 2025-07-21 07:49 | XMS_ITS | Encounter Summary ---
Author Organization [facility] Address [address] [place] [address] Phone Care Team Providers Care Ophthalmic Nurse Name Role Phone Unavailable Primary Care Provider Unavailabl e Encounter Details Date Type Department Care Team (Late st Contact Info) Description 04/25/2022 Telephone [facility] [address] [place] [address] Rene Nelson MD Social History [...] labs done. Please advise Thank you CB# [phone] documented in this encounter Plan of Treatment Not on file documented as of this encounter Visit Diagnoses Not on filedocumented in this encounter
--- OUTSIDE RECORDS SUMMARY | 2025-07-21 07:49 | XMS_ITS | Clinical Summary ---
Author Organization [facility] Address [address] [place] [address] Phone Care Team Providers Care Pole Tester Name Role Phone Unavailable Primary Care Provider [...] Anxiety 12/21/2015 Essential hypertension 12/21/2015 Migraine 12/21/2015 Pain of shoulder region 12/21/2015 Immunizations Immunization Administration Dates Next Due [...] mg/dl PVNMA 05/02/2020 us [facility] Conversion LAB [id number] LICITED RESULTS Final Result PVNMA from Last 3 Months or Most Recently Relevant to Health Maintenance Insurance Comprehensive Benefits Comprehensive Benefits
[2025-07-21 11:25] LABS: Anion Gap 16 (12-20); Blood Urea Nitrogen 16 mg/dL (9-16); Calcium 9.2 mg/dL (8.4-10.2); Carbon Dioxide 24 mmol/L (22-29); Chloride 100 mmol/L (96-108); Estimated Glomerular Filt Rate 49; Potassium 4.6 mmol/L (3.3-5.1); Sodium 135 mmol/L (135-145)
== END 2025-07-21 07:45 | disposition home or self-care (01) ==
LOC: HO.HMGCLDS 07:44
PROVIDERS: PCP Internal Medicine; Visit Provider Internal Medicine Hypertension Specialist
DX: I10 Essential (primary) hypertension (principal)
CPT/HCPCS: 36415; 80048

== ENCOUNTER 2025-08-01 07:54 | Outpatient (AMB) | payer OTHER, SELFPAY ==
[2025-08-01 07:57] VITALS: BP 148/84; PULSE 66; O2SAT 98; BMI 52.7
--- NOTE | 2025-08-01 07:57 | MHC.OFFVIS ---
Vital Signs 08/01/25 07:57 Height 5 ft 2 in Weight 287 lb 14.779 oz BMI 52.7 BP 148/84 H Blood Pressure Location Lt brachial Position Sitting Pulse 66 Pulse Source Pulse Oximeter Pulse Oximetry (%) 98 Oxygen Delivery Method Room Air Intake Visit Reasons: DM Intake Note: Patient present today for Type 2 Diabetes Mellitus Last Diabetic eye exam: Last exam was in 05/2025 Last Podiatry Visit: Doesn't have one Random Glucose: 153 mg/dl HgA1C: 7.8% Nursing Informatics Analyst Required: No Accompanied by: Self / Same As Patient Allergies raspberry (Raspberry) Allergy (Mild, Verified 08/01/25 08:02) HIVES Medication List - Last Reconciled 08/01/25 by Erinn Jimenez PA-C albuterol sulfate 90 mcg/actuation 1 inh inhalation QID PRN 30 days amlodipine-benazepril 5-20 mg 1 cap PO DAILY blood sugar diagnostic (OneTouch Ultra Test strips) Use BID As directed to monitor blood glucose blood sugar diagnostic (FreeStyle Lite Strips) Use daily As directed to check blood glucose blood-glucose meter (OneTouch Ultra2 Meter) Use 2 x daily As directed to monitor blood sugars. blood-glucose meter (FreeStyle Lite Meter kit) Use daily As directed to check blood sugars blood-glucose sensor (FreeStyle Jason 3 Plus Sensor device) Use daily As directed to monitor glucose cholecalciferol (vitamin D3) 25 mcg PO DAILY citalopram 40 mg PO DAILY 90 days clotrimazole-betamethasone 1-0.05 % 1 appl topical ONCE 30 days [CPAP machine Full face mask F 20 with pressure setting 18/12 cm H2O. Please provide bi-level devise 18/12 cm H2O resmed aircurve 2 V auto.] fluticasone propionate 50 mcg/actuation (Flonase Allergy Relief) 1 spray intranasal BID 30 days furosemide (Lasix) 20 mg PO DAILY PRN gabapentin 300 mg PO .qhs glucagon 3 mg/actuation 3 mg intranasal ONCE PRN glucose (Dex4 Glucose) 16 grams (4 x 4 gram) PO Q15M PRN insulin glargine (Basaglar KwikPen U-100 Insulin) 60 units (0.6 mL) subcut BID 30 days insulin lispro (Humalog KwikPen (U-100) Insulin) 5 units (0.05 mL) subcut TID lancets (FreeStyle Lancets) As directed lancets (OneTouch UltraSoft 2 Lancet) use 2 x daily As directed to monitor blood sugars lancets (FreeStyle Lancets) use daily as directed to check blood glucose lidocaine 5% 1 patch topical DAILY lorazepam 1 mg PO ONCE PRN 90 days nitrofurantoin macrocrystal 100 mg PO BID nystatin 1 appl topical DAILY PRN omeprazole 20 mg PO DAILY 90 days pen needle, diabetic (Easy Comfort Pen [place]) B.i.d. propranolol ER 60 mg PO DAILY 90 days simvastatin 40 mg PO BEDTIME 90 days tramadol 50 mg PO BEDTIME PRN 30 days triamcinolone acetonide 0.1% 1 appl topical .qhs 30 days HPI HPI DM: Details: Patient is a 55-year-old female with a significant past medical history of morbid obesity, hypertension, hyperlipidemia, BRENDA, chronic kidney disease and diabetes presenting today to establish care regarding her diabetes. Endo: Dm-was diagnosed with diabetes around 2008. Her most recent A1c is 7.8 She is currently managed on mounjaro 2.5 mg weekly, jardiance 10 mg daily, and Lantus 60 units twice a day, -she has not lost any weight but tolerating mounjaro much better than ozempic. No side effects with new rx jardiance. In the past she tried metformin has made her sick, she thinks she took a dose of trulicity in the past and it was ineffective. cgm- she has had issues with the jason 3+ sticking to her arm. states it is popping off a lot. she did not note any low glucose events. She states that her family has a history of type 1 diabetes. She recently had neg antibodies and a normal cpeptide CV: Blood pressure today in the office is 148/84. She on amlodipine/benazepril 5/20 mg, Lasix 20 mg and propranolol 60 mg daily. Cholesterol is managed with simvastatin 40 mg. Nephro: Follows with Nephrology closely. Was told that she does need to lose weight, control her blood pressure and blood sugars. She does avoid NSAIDs. [facility] Medical History Difficulty using continuous positive airway pressure (CPAP) full face mask Nocturnal hypoxemia BRENDA treated with BiPAP Morbid obesity HTN (hypertension) Rash Insulin dependent diabetes mellitus Surgical History Previous section History of back surgery Family History Father No problems noted. Mother HTN (hypertension) Maternal Grandfather Cancer Sister No problems noted. Social History Housing: House Alcohol intake: unknown Patient Tobacco Use Status: Never used Tobacco e-Cigarette/Vaping Use: Never Used service: No Current occupational status: employed Cognitive needs: No Hearing needs: No Vision needs: Yes Physical Exam Vital Signs: Last Vital Signs Pulse 66 08/01/25 07:57 BP 148/84 H 08/01/25 07:57 Pulse Ox 98 08/01/25 07:57 Oxygen Delivery Method Room Air 08/01/25 07:57 BMI result Body Mass Index 52.7 Const Orientation/consciousness: patient oriented x3 Neck Neck: Yes no lymphadenopathy Thyroid: Thyroid normal Carotids: no bruits Resp Auscultation: clear to auscultation bilaterally Cardio Rate: regular rate Rhythm: regular rhythm Heart sounds: S1 normal heart sound present and S2 normal heart sound present Peripheral pulses: dorsalis pedis present Neuro General: patient oriented x3, gait normal and no focal motor deficits Extrem Other: Monofilament sensation intact bilaterally. Vibratory sensation intact bilaterally. Skin intact. General: Yes normal to inspection Results AMB Hemoglobin A1c AMB Hemoglobin A1c 7.8 % Last Edit by KAVITHA Brown on 08/01/25 08:21 Results Reviewed Results Reviewed: Laboratory Last Values Glucose (Clinic) 153 mg/dL (60-115) H 08/01/25 08:05 Laboratory Tests 06/16/25 07/21/25 08/01/25 07:40 07:47 08:05 Creatinine 1.14 Estimated GFR 49 Glucose (Clinic) 153 H C-Peptide 3.84 Islet Cell Ab Screen NEGATIVE SARAH Antibody <5 Assessment & Plan Assessment & Plan (1) Uncontrolled type 2 diabetes mellitus with hyperglycemia, with long-term current use of insulin: Code(s): E11.65 - Type 2 diabetes mellitus with hyperglycemia; Z79.4 - exterminator helper termite (current) use of insulin Category: Medical Plan: Gave a g7 sensor today to try. advised to try skin tac wipes. continue current basaglar dosing She has used humalog prn in the past. increase mounjaro to 5 mg weekly. discussed risks benefits and adverse effects increase jardiance to 25 mg daily. discussed risks and benefits and adverse effects like increased urinary frequency, urgency, UTIs, yeast infections reviewed rule of 15s. sent glucose tabs (2) Hypertension, essential: Code(s): I10 - Essential (primary) hypertension Category: Medical Plan: continue current plan (3) Microalbuminuria due to type 2 diabetes mellitus: Code(s): E11.29 - Type 2 diabetes mellitus with other diabetic kidney complication; R80.9 - Proteinuria, unspecified Category: Medical Plan: follows with nephrology sglt2 ordered on acei on gpl1 Orders: Orders AMB Hemoglobin A1c Today E11.65 - Type 2 diabetes mellitus with hyperglycemia, Z13.9 - Encounter for screening, unspecified, Z79.4 - exterminator helper termite (current) use of insulin Medications: New tirzepatide (Mounjaro) 5 mg (0.5 mL) subcut QWEEK 2 mL 5RF empagliflozin (Jardiance) 25 mg PO QAM 90 tabs 1RF Coding Level of Care Code Est Pt Level 4 (24107) Complex visit Add On G2211 Diagnoses Uncontrolled type 2 diabetes mellitus with hyperglycemia, with long-term current use of insulin E11.65; Z79.4 Hypertension, essential I10 Microalbuminuria due to type 2 diabetes mellitus E11.29; R80.9
--- OUTSIDE RECORDS SUMMARY | 2025-08-01 07:57 | XMS_ITS | Encounter Summary ---
Author Organization [facility] Address [address] [place] [address] Phone Care Team Providers Care Block Mason Name Role Phone Unavailable Primary Care Provider Unavailabl e Encounter Details Date Type Department Care Team (Late st Contact Info) Description 04/25/2022 Telephone [facility] [address] [place] [address] Rene Nelson MD Social History [...] labs done. Please advise Thank you CB# [phone] documented in this encounter Plan of Treatment Not on file documented as of this encounter Visit Diagnoses Not on filedocumented in this encounter
--- OUTSIDE RECORDS SUMMARY | 2025-08-01 07:57 | XMS_ITS | Clinical Summary ---
Author Organization [facility] Address [address] [place] [address] Phone Care Team Providers Care Appliance Fixer Name Role Phone Unavailable Primary Care Provider [...] mg/dl PVNMA 05/02/2020 us Rtama Conversion LAB [id number] LICITED RESULTS Final Result PVNMA from Last 3 Months or Most Recently Relevant to Health Maintenance Insurance Comprehensive Benefits Comprehensive Benefits
--- OUTSIDE RECORDS SUMMARY | 2025-08-01 07:57 | XMS_ITS | Encounter Summary ---
Author Organization [facility] Address [address] [place] [address] Phone Care Team Providers Care Chemical Handler Name Role Phone Unavailable Primary Care Provider Unavailabl e Encounter Details Date Type Department Care Team (Late st Contact Info) Description 04/15/2022 Telephone [facility] [address] [place] [address] Rene Nelson MD Social History [...] for guidance. Please call her back at [phone] Thank you documented in this encounter Plan of Treatment Not on file documented as of this encounter Visit Diagnoses Not on filedocumented in this encounter
--- OUTSIDE RECORDS SUMMARY | 2025-08-01 07:57 | XMS_ITS | Clinical Summary ---
Author Organization [facility] Address [address] [place] [address] Phone Care Team Providers Care Advertising Display Rotator Name Role Phone Cara Byers MD Primary Care Provider [phone] Allergies No known active allergies Medications lisinopril [...] given a sample of Ozempic lot number [id number], expiration 02/28/2023. Assessment & Plan (10/31/2021 4:03 [...] Most Recently Relevant to Health Maintenance Insurance [employer] Member Subscriber Plan / Payer (Ef fective 2019-Present) Name:Karen Ferrell Relation to Subscriber:Self Name:Karen Ferrell Payer ID:[id number] (NA) Type:PPO Address: [place] [id number] [employer] Member Subscriber Plan / Payer (Ef fective 2019-Present) Name:Karen Ferrell Relation to Subscriber:Self Name:Karen Ferrell Payer ID:[id number] (NAIC) Type:PPO Address: [address] [employer] ADMINISTRATORS [employer]MIN[employer] Care Teams Advertising Display Rotator Relationship Specialty Start Date End Date Cara Byers MD [facility] [place] [address] PCP - General Internal Medicine 05/28/20 Additional Source Comments The information contained in this document represents components of the legal health record. It is not the complete legal health record.[facility]
[2025-08-01 08:09] LABS: Glucose, Whole Blood 153 mg/dL (60-115)
== END 2025-08-01 10:08 | disposition home or self-care (01) ==
LOC: HO.ENCR 07:54
PROVIDERS: PCP Internal Medicine; Visit Provider Physician Assistant
DX: E11.65 Type 2 diabetes mellitus with hyperglycemia (principal); Z79.4 Long term (current) use of insulin; I10 Essential (primary) hypertension; E11.29 Type 2 diabetes mellitus with other diabetic kidney complication; R80.9 Proteinuria, unspecified; Z13.9 Encounter for screening, unspecified

== ENCOUNTER → 2025-08-01 07:54 | Outpatient (BNVA) | payer OTHER, SELFPAY | PROVIDERS: PCP Internal Medicine; Visit Provider Physician Assistant | DX: E11.65 Type 2 diabetes mellitus with hyperglycemia (principal); E11.29 Type 2 diabetes mellitus with other diabetic kidney complication; I10 Essential (primary) hypertension; R80.9 Proteinuria, unspecified; Z79.4 Long term (current) use of insulin | CPT/HCPCS: 82947; 83036 ==